=== PATIENT | male | born 1960 | race Caucasian/White ===

== ENCOUNTER 2024-03-22 09:53 | Outpatient (OUT) | payer MEDICARE, BC, SELFPAY ==
--- NOTE | 2024-03-21 13:55 | VEINCLINIC_ITS ---
Vital Signs 03/22/24 10:09 Height 5 ft 11 in Weight 83.915 kg BMI 25.8 BP 133/70 BP Location Left Brachial BP Position Sitting BP Cuff Size Adult BP Source Automatic Cuff Respiration 16 Pulse 58 L Pulse Source Monitor Comment The patient's blood pressure is elevated. Varicose Veins Patient is a 63 year old male in this day with c/o hemmorrhagic varicose veins to left leg. The first episode approximatley 3 weeks ago spontaneously hemmoraged and patient was able to get it to clot off. The second episode the patient had to go to ER to get it to stop which was about a week and a half ago. Patient c/o bilateral leg edema. Patient has worn bilateral leg knee high compression stockings for approximately 3 years with some improvement noted in edema. Patient has no history of varicose vein treatment, nor family history of varicose veins. Patient also has no history of blood clots. Jose Morton MD personally performed the services described in this documentation, as scribed by Errol Trujillo RN in my presence and it is both accurate and complete. IErrol RN, am scribing for, and in the presence of, Dr. Jose Tomas and in the presence of the patient. . thigh: bilateral (symptomsl left leg > right leg), knee: bilateral, calf: bilateral, ankle: bilateral and cordova: bilateral cramping 5 years Worsened in recent months: Yes standing elevating extremities, compression stockings and exercise Reports muscle spasms of leg, edema and leg edema History of lower extremity trauma: No Superficial thrombophlebitis: No Family history of varicose veins: no Has patient had previous lower extremity venous surgery: No Patient has previously received the following treatment(s) for lower extremity varicose veins: Reports none Does patient have a history of : not applicable Has patient had lower extremity venous scan with relux testing: No Support hose used: Yes Problems walking or doing physical activity: Yes How does it affect you: muscle spasms Do you walk much: Yes Do you stand much: Yes Review of Systems ROS Narrative Jose Morton MD personally performed the services described in this documentation, as scribed by Errol Trujillo RN in my presence and it is both accurate and complete. IErrol RN, am scribing for, and in the presence of, Dr. Jose Tomas and in the presence of the patient. Status of ROS 10 or more systems reviewed and unremark able except as noted in history and below Cardiovascular Reports: edema Integumentary/Breast Reports: changes in skin color Hematologic/Lymphatic Reports: easy bleeding PFSH [facility] Medical History (Updated 03/22/24 @ 10:23 by Errol Trujillo) Rotator cuff arthropathy ?M12.819 - Other specific arthropathies, not elsewhere classified, unspecified shoulder (ICD-10) Lung nodule ?R91.1 - Solitary pulmonary nodule (ICD-10) Hypertension ?I10 - Essential (primary) hypertension (ICD-10) Pain due to varicose veins of both lower extremities ?I83.813 - Varicose veins of bilateral lower extremities with pain (ICD-10) Surgical History (Updated 03/22/24 @ 10:23 by Errol Trujillo) H/O nasal septoplasty ?Z98.890 - Other specified postprocedural states (ICD-10) Family History (Updated 03/22/24 @ 10:24 by Errol Trujillo) Other Alzheimer dementia Family history of cancer Social History (Updated 03/22/24 @ 10:25 by Errol Trujillo) Within the past year, how often did you have a drink containing alcohol: 2-3 times a week Smoking status: Former smoker Non-prescribed substance use: denies use Meds Home Medications and Allergies Home Medications ?Medication ?Instructions ?Recorded ?Confirmed ?Type atorvastatin 20 mg tablet 20 mg PO DAILY 03/22/24 03/22/24 History levothyroxine 75 mcg tablet 75 mcg PO DAILY 03/22/24 03/22/24 History (Synthroid) losartan 25 mg tablet 25 mg PO DAILY 03/22/24 03/22/24 History Allergies Allergy/AdvReac Type Severity Reaction Status Date / Time No Known Drug Allergies Allergy Verified 03/22/24 10:27 Exam Narrative Exam Narrative: Jose Morton MD personally performed the services described in this documentation, as scribed by Errol Trujillo RN in my presence and it is both accurate and complete. Errol Morton RN, am scribing for, and in the presence of, Dr. Jose Tomas and in the presence of the patient. Results Additional Findings Additional findings: bilateral leg reflux u/s reveals moderate great saphenous and severe left small saphenous venous insufficiency with associated dilation along with partial chronic thrombus to left small saphenous vein. Additinally bilateral leg perforating perforating veins and lastly, bilareral leg branch saphenous truncal tributary varicosities. Jose Morton MD personally performed the services described in this documentation, as scribed by Errol Trujillo RN in my presence and it is both accurate and complete. Errol Motron RN, am scribing for, and in the presence of, Dr. Jose Tomas and in the presence of the patient. Assessment and Plan Assessment and Plan (1) Pain due to varicose veins of both lower extremities: Plan Patient to continue use of bilateral leg knee high compression stockings, exercise, rest and elevation of bilateral legs/feet. Patient to return for EVLT of left GSV followed by microfoam chemical ablation of branch saphenous varicosites leading to hemmoraging veins of left lower leg. Once these procedures are complete, EVLT of right GSV followed by EVLT of left SSV followed by EVLT of right SSV. Once these procedures complete, move forward with microfoam chemical ablation bilateral leg branch saphenous varicosities. Lastly, sclerotherapy bilateral leg hemorrhagic reticular spider veins. Jose Morton MD personally performed the services described in this documentation, as scribed by Errol Trujillo RN in my presence and it is both accurate and complete. IErrol RN, am scribing for, and in the presence of, Dr. Jose Tomas and in the presence of the patient.
--- NOTE | 2024-03-21 14:00 | W.VEIN ---
Discharge Plan Discharge Disposition: Home, Self-Care Outpatient Diagnostics: VC Endovenous Ablation 1VeinLT (Routine) Timeframe: 2 Weeks Facility: [facility] - Location: [facility] Center Ordered By: Jose Tomas Plan of Treatment: EVLT of left GSV, microfoam chemical ablation left leg, EVLT of left SSV, right GSV, right SSV, microfoam chemical ablation right leg, sclerotherapy bilateral legs Patient Instructions: Endovenous Ablation (GEN) Print Language: Venezuelan Discharge Date/Time: 03/22/24 09:54
--- NOTE | 2024-03-22 09:59 | VEIN_ITS ---
Patient Name: SHASHI SAAB MR#: [id number] : 1960 Exam Date: 03/22/2024 Ordering Doctor: DR JOSE TOMAS M.D. RADIOLOGY REPORT PROCEDURE: [facility] - OFFICE VISIT INITIAL COMPARISON: None. PROGRESS NOTES: 63-year-old male who presents with 2 episodes of nonpainful left leg hemorrhage 1 requiring the patient to present to the emergency room for resolution. The patient is concerned as he had no pain and woke up in a pool of blood and is concerned about recurrent hemorrhage. The patient has worn compression stockings for approximately 3 years. The patient has bilateral varicose veins with pain and swelling. The patient's symptoms are exacerbated by prolonged sitting and standing and partially relieved by rest, leg elevation and over the counter oral analgesics. The patient denies any signs and symptoms to suggest arterial ischemia. The patient describes a family history significant for Alzheimer's and cancer. Social history the patient drinks 2-3 times per week. The patient discontinued smoking years ago. No illicit drug use. Current medical history significant for rotator cuff arthropathy, solitary pulmonary nodule, hypertension and varicose veins. No history of deep venous thrombus or pulmonary embolus. See separate history and physical for medication list. No prior treatment for varicose or spider veins. Long-term use of compression stockings. After review of nurse notes, history and physical exam I discussed at length the pathophysiology of venous hypertension and possible treatments, therapies and strategies available. We discussed at length the importance of elevating the lower extremities above the level of the heart, increased physical activity and compression stocking use. We discussed alternatives including conservative therapy with compression stockings, ligation stripping and phlebectomy. We discussed intravenous laser ablation, micro foam chemical ablation and injection sclerotherapy at. Risks, benefits and alternatives were discussed and the patient's questions were answered Ultrasound venous reflux study performed same day was discussed at length with the patient. The report demonstrates severe right and moderate left deep vein reflux. Bilateral great saphenous and small saphenous vein venous insufficiency with saphenofemoral and saphenopopliteal reflux. Bilateral incompetent perforating veins. Bilateral incompetent varicose veins. PHYSICAL EXAM: The right leg demonstrates moderate scattered varicose reticular and spider veins. Mild hemosiderin staining. Mild subcutaneous edema of the ankle and foot The left leg demonstrates moderate scattered varicose reticular and spider veins. Mild hemosiderin staining. Small eschars in the region of the patient's hemorrhagic veins along the medial ankle. Both thighs, legs and feet were symmetrically warm to the touch. Good posterior tibial and dorsalis pedis pulses were present bilaterally. VEIN/VC Facility EST Comprehensive IMPRESSION: 1. Bilateral great saphenous and small saphenous vein venous insufficiency with saphenofemoral junction/saphenous popliteal junction reflux and dilatation 2. Moderate bilateral lower extremity varicose veins with left leg hemorrhagic vein bleeding 3. Mild bilateral lower extremity subcutaneous edema 4. No definite flow significant arterial disease 5. CEAP: C4a, Ep, Asp, Pr PLAN: 1. Endovenous laser ablation of the left great saphenous vein followed by micro foam chemical ablation of the left leg due to the patient's multiple episodes of non painful bleeding of hemorrhagic veins 2. Endovenous laser ablation of the right great saphenous vein, left small saphenous vein and possible right small saphenous vein 3. Micro foam chemical ablation of remaining incompetent varicose veins 4. Reticular and spider veins 5. Long-term use of bilateral thigh-high 20-30 mm compression stockings for control moderate to severe deep vein reflux 6. Continued leg elevation and physical activity for symptomatic relief Nurse notes, history and physical were reviewed and confirmed, see attached forms. The nurse was present throughout the physical exam and consultation Dictated by: Jose Tomas MD on 03/22/2024 at 11:54 Approved by: Jose Tomas MD on 03/22/2024 at 12:00
--- NOTE | 2024-03-22 09:59 | VEIN_ITS ---
Patient Name: SHASHI SAAB MR#: [id number] : 1960 Exam Date: 03/22/2024 Ordering Doctor: DR JOSE TOMAS M.D. RADIOLOGY REPORT PROCEDURE: VC EXT VENOUS REFLUX HERMAN LMTD COMPARISON: None. INDICATIONS: I83.813 Bilateral painful varicose veins TECHNIQUE: Duplex imaging of the lower extremity to assess the deep and superficial venous system for the presence of deep or superficial venous incompetence and to document the location and severity of disease. The study includes evaluation of the great saphenous vein (GSV), anterior accessory saphenous vein (AASV) and small saphenous vein (SSV). Patient scanned in reverse Trendelenburg and standing. FINDINGS: RIGHT LOWER EXTREMITY: Saphenofemoral Junction Reflux: Yes 8.3mm 3.0 sec GSV: Diam (mm) Reflux/ Time (sec) Proximal Thigh 6.1 Yes 1.5 Mid Thigh 3.9 Yes 0.6 Distal Thigh 3.5 Yes 0.5 Prox Calf 4.0 Yes 0.6 Mid Calf 3.0 Yes 1.5 Saphenopopliteal Junction Reflux: 5.5mm Yes 0.5 SSV: Proximal Calf 6.9 Yes 0.9 Mid Calf 3.8 Yes 0.6 AASV: Proximal Thigh 4.0 Yes 0.6 Mid Thigh 1.9 Yes 0.7 Distal Thigh Thrombi: No acute or chronic thrombus. Compressibility: Normal. Flow: Severe deep venous reflux. Preforator: Distal medial lower leg 4.0 mm with 1.3s reflux. Mid posterior lower leg 3.5 mm with 0.8s reflux. Mid medial thigh 3.5 mm with 3.0s reflux. Tech Note: Incompetent varicose vein off of GSV/executive producer promos distal medial thigh measures 4.0 mm with 0.6s reflux. Varicose vein mid medial calf measures 4.0 mm with 1.5s reflux. LEFT LOWER EXTREMITY: Saphenofemoral Junction Reflux: Yes 9.0 mm 4.5 sec GSV: Diam (mm) Reflux/Time (sec) Proximal Thigh 9.3 Yes 1.0 Mid Thigh 5.1 Yes 0.5 Distal Thigh 4.1 Yes 0.9 Prox Calf 4.3 Yes 1.8 Mid Calf 3.4 Yes 0.9 Saphenopopliteal Junction Relux: 5.5 mm Yes 0.5 SSV: Proximal Calf 5.9 Yes 0.7 Mid Calf 4.2 Yes 4.4 AASV: Proximal Thigh 4.1 No Mid Thigh 2.9 No Distal Thigh Thrombi: Chronic partial thrombus noted in SSV. Compressibility: Partial compression of segments in SSV. Flow: Moderate deep venous reflux. Golf Manager: Distal medial calf 2.6 mm, 2.6s reflux. Mid medial calf 4.8 mm with 4.4s reflux. Tech Note: Incompetent varicose vein proximal medial calf measures 4.3 mm with 1.3s reflux. Varicose vein distal anterior lower leg measures 4.1 mm with 0.5s reflux. CONCLUSION: 1. Severe right and moderate left deep vein reflux 2. 3. Moderate bilateral great saphenous vein venous insufficiency with dilatation and saphenofemoral junction reflux, left greater than right 4. Severe left small saphenous vein venous insufficiency with dilatation and saphenopopliteal junction reflux 5. Chronic partial thrombus left small saphenous vein 6. Bilateral incompetent perforating veins 7. Bilateral incompetent varicose veins Dictated by: Jose Tomas MD on 03/22/2024 at 11:07 Approved by: Jose Tomas MD on 03/22/2024 at 11:09
[2024-03-22 10:09] VITALS: BP 133/70; PULSE 58; BMI 25.8
== END 2024-03-22 09:54 | disposition home or self-care (01) ==
LOC: VC 09:54
PROVIDERS: PCP Radiology Diagnostic Radiology; Visit Provider Radiology Diagnostic Radiology
DX: I83.813 Varicose veins of bilateral lower extremities with pain (principal)
CPT/HCPCS: 93970; G0463

== ENCOUNTER 2024-03-31 09:45 | Outpatient (OUT) | payer MEDICARE, BC, SELFPAY ==
--- NOTE | 2024-03-30 15:38 | V.VEINS.HP ---
Vital Signs 03/31/24 09:59 BP 160/72 H BP Location Left Brachial BP Position Sitting BP Cuff Size Adult BP Source Manual Cuff Respiration 16 Pulse 68 Pulse Source Monitor Pulse Oximetry (%) 98 Oxygen Delivery Method Room Air Comment The patient's blood pressure is elevated. Varicose Veins Patient in this day for EVLT of Kevon Mortno MD personally performed the services described in this documentation, as scribed by Errol Trujillo RN in my presence and it is both accurate and complete. Errol Morton RN, am scribing for, and in the presence of, Dr. Kevon Simmons and in the presence of the patient. . thigh: bilateral (symptomsl left leg > right leg), knee: bilateral, calf: bilateral, ankle: bilateral and cordova: bilateral cramping 5 years Worsened in recent months: Yes standing elevating extremities, compression stockings and exercise Reports muscle spasms of leg, edema and leg edema History of lower extremity trauma: No Superficial thrombophlebitis: No Family history of varicose veins: no Has patient had previous lower extremity venous surgery: No Patient has previously received the following treatment(s) for lower extremity varicose veins: Reports none Does patient have a history of : not applicable Has patient had lower extremity venous scan with relux testing: No Support hose used: Yes Problems walking or doing physical activity: Yes How does it affect you: muscle spasms Do you walk much: Yes Do you stand much: Yes Review of Systems ROS Narrative Kevon Morton MD personally performed the services described in this documentation, as scribed by Errol Trujillo RN in my presence and it is both accurate and complete. Errol Morton RN, am scribing for, and in the presence of, Dr. Kevon Simmons and in the presence of the patient. Status of ROS 10 or more systems reviewed and unremarkable except as noted in history and below Cardiovascular Reports: edema Integumentary/Breast Reports: changes in skin color Hematologic/Lymphatic Reports: easy bleeding [facility] Medical History (Updated 03/31/24 @ 10:16 by Errol Trujillo) Superficial thrombophlebitis of left leg ?I80.02 - Phlebitis and thrombophlebitis of superficial vessels of left lower extremity (ICD-10) Rotator cuff arthropathy ?M12.819 - Other specific arthropathies, not elsewhere classified, unspecified shoulder (ICD-10) Lung nodule ?R91.1 - Solitary pulmonary nodule (ICD-10) Hypertension ?I10 - Essential (primary) hypertension (ICD-10) Pain due to varicose veins of both lower extremities ?I83.813 - Varicose veins of bilateral lower extremities with pain (ICD-10) Surgical History (Updated 03/31/24 @ 10:15 by Errol Trujillo) Status post laser ablation of incompetent vein ?Z98.890 - Other specified postprocedural states (ICD-10) H/O nasal septoplasty ?Z98.890 - Other specified postprocedural states (ICD-10) Family History (Updated 03/22/24 @ 10:24 by Errol Trujillo) Other Alzheimer dementia Family history of cancer Social History (Updated 03/22/24 @ 10:25 by Errol Trujillo) Within the past year, how often did you have a drink containing alcohol: 2-3 times a week Smoking status: Former smoker Non-prescribed substance use: denies use Meds Home Medications and Allergies Home Medications ?Medication ?Instructions ?Recorded ?Confirmed ?Type atorvastatin 20 mg tablet 20 mg PO DAILY 03/22/24 03/22/24 History levothyroxine 75 mcg tablet 75 mcg PO DAILY 03/22/24 03/22/24 History (Synthroid) losartan 25 mg tablet 25 mg PO DAILY 03/22/24 03/22/24 History Allergies Allergy/AdvReac Type Severity Reaction Status Date / Time No Known Drug Allergies Allergy Verified 03/22/24 10:27 Exam Narrative Exam Narrative: Kevon Morton MD personally performed the services described in this documentation, as scribed by Errol Trujillo RN in my presence and it is both accurate and complete. Errol Morton RN, am scribing for, and in the presence of, Dr. Kevon Simmons and in the presence of the patient. Assessment and Plan Assessment and Plan (1) Pain due to varicose veins of both lower extremities: Plan f/u examination with physician along with left leg limited u/s Kevon Morton MD personally performed the services described in this documentation, as scribed by Errol Trujillo RN in my presence and it is both accurate and complete. Errol Morton RN, am scribing for, and in the presence of, Dr. Kevon Simmons and in the presence of the patient. Procedures Procedure Instructions Procedures Plan of care: Risks and benefits of the procedure were discussed at length and informed written consent was obtained.? Time-out completed for verification of correct patient, procedure and site.? Staff present during time-out: Errol Trujillo RN,? Kevon Simmons MD, Mariaelena Vieira RDNY, Time Out Time__1035 Patient prepped and procedure performed in usual sterile fashion. Risk of injury related to use of Diode laser and/or laser devices__CR___ ? Serial number of laser used :? [id number] Control panel self test performed, electrical cords in good condition, floor is dry, basin of water available, fire extinguisher in close proximity_CR__ Polycarbonate goggles available and Laser warning signs outside of doors___CR__ Eye protection provided to patient and staff in room_CR___ Use of laser retardant drapes and dull blackened instruments as directed__CR___ Use of nonflammable prep solutions and use of saline soaked sponges to protect tissues as indicated _CR___ Length ___70 cm Laser operated by __Dr. Simmons Physician verbal confirmation laser locked in place__CR__ Laser start time (date and time) _03/31/2024@__1052 Laser stop time(date and time) __03/31/2024@__1102 [place] _8.0___ Average laser use __3499 Joules Average laser use__437 seconds Pulse continuous ___CR_? Pulse intermittent ___ Amount of Tumescent used _275cc Evaluated patient for signs and symptoms of electrical injury __CR___ ? Skin clear at insertion site __CR___ Patient tolerated procedure well.? Left leg Coban dressing applied to access site.? Applied Left thigh high leg compression stocking. Will return on 05/05/2024 for Left leg limited venous ultrasound and exam. IKevon MD personally performed the services described in this documentation, as scribed by Errol Trujillo RN in my presence and it is both accurate and complete. I, Errol Trujillo RN, am scribing for, and in the presence of, Dr. Kevon Simmons and in the presence of the patient.
--- NOTE | 2024-03-30 15:41 | P.DS_ITS ---
Discharge Plan Discharge Disposition: Home, Self-Care Outpatient Diagnostics: VC EXT Venous LT Limited (Routine) Timeframe: 2 Weeks Facility: [facility] - Location: Vein Center Ordered By: Jose Tomas VC EXT Venous Reflux LT LMTD (Routine) Timeframe: 2 Weeks Facility: [facility] - Location: Vein Center Ordered By: Jose Tomas Follow Up Appointments: 05/04/2024 Plan of Treatment: f/u examination with physician along with left leg limited u/s Patient Instructions: Endovenous Ablation (DC) Print Language: Nepalese Discharge Date/Time: 03/31/24 10:46
--- NOTE | 2024-03-31 09:53 | VEIN_ITS ---
[address] [address] Patient Name: SHASHI SAAB MRN: [id number] date: 1960 Sex: M Assigned Patient Location: Current Patient Location: Accession/Order Number: [id number] Exam Date: 03/31/2024 09:57 Report Date: 03/31/2024 11:21 At the request of: LYNNE CUETO Procedure: VC Endovenous Ablation 1VeinLT EXAMINATION: VC Endovenous Ablation 1VeinLT HISTORY: I83.813 - Varicose veins of bilateral lower extremities w... The risks and benefits of the procedure had been previously discussed, and were rediscussed at length. Informed written consent was obtained. Errol Trujillo RN and Mariaelena Berkowitz RDMS assisted. Time out procedure was performed. The left lower extremity was prepared and draped in the usual sterile fashion to allow knee flexion in the sterile field. Duplex ultrasound probe was draped in a sterile cover, sterile transmission gel was used. Venous mapping was performed with the areas of dilation and large tributaries marked. The total length was 70 cm from the entry 3 cm above the ankle to 3 cm below the Saphenofemoral junction. The diameter of the left great saphenous vein ranged from 9.3 mm. A 30 gauge needle and 1% buffered lidocaine was used to anesthetize the entry site. A 4 mm incision was made with a scalpel and the saphenous vein was entered percutaneously under direct ultrasound guidance with a micropuncture set, a single stick was successful in gaining access. A micro-guide wire was inserted and the needle removed. A micro-set including a dilator was inserted over the microwire and the needle and dilator were removed. A guide wire was inserted through the micro-set and guided through the saphenous vein to the saphenofemoral junction. The dilator was removed and an introducer sheath was inserted over the wire until the end of the sheath entered the saphenofemoral junction. The dilator and wire were removed and the 600 micron fiber was introduced and placed and positioned so that it extended beyond the sheath and was 3 cm distal to the saphenofemoral or saphenopopliteal junction. Final position of the fiber was determined by ultrasound guidance and duplex imaging. Tumescent anesthetic was delivered by ultrasound guidance. 275 cc of fluid was delivered along the entire course of the saphenous vein. The solution consisted of 1000 cc of normal saline with 40 mL of 1% lidocaine and 20 mL of sodium bicarbonate. A final positioning check was made. The energy source was turned on by means of the foot pedal and the fiber and sheath were withdrawn. The total number of Joules delivered was 3499. The laser was active for 437 seconds under continuous pulse, average laser use of 8 J. Laser start time: 10:52 AM Laser stop time: 11:02 AM Date: 03/31/2024. A duplex ultrasound revealed compressibility and flow at the saphenofemoral junction immediately after the procedure. Hemostasis at the access site was achieved. The skin incision of the saphenous vein was closed with a 4 x 4. A compression stocking was applied. Postop instructions were given. A follow up appointment was recommended and scheduled. The patient tolerated the procedure well. Electronically authenticated by: DIPIKA MEDINA Date: 03/31/2024 11:21
[2024-03-31] MEDS: LIDOCAINE HCL 1% 100 MG/10 ML MDV INJ (09:54)
[2024-03-31] MEDS: 0.9 % SODIUM CHLORIDE 500 ML, LIDOCAINE HCL 20 ML, SODIUM BICARBONATE 10 MEQ INJ (09:54)
[2024-03-31 09:59] VITALS: BP 160/72; PULSE 68; O2SAT 98
--- OUTSIDE RECORDS SUMMARY | 2024-03-31 10:09 | XMS_ITS | CCD ---
Author Organization [facility] Care Team Providers Care Director Imaging Name Role Phone THAIS WRIGHT Unavailable Unavailable MIGUEL DIALLO Unavailable Unavailable THAIS WRIGHT Unavailable Unavailable Beitler, Ciara Primary Care Provider Elder Goodman Primary Care Provider [phone] Beitler III, PA-C, Ciara Mich Primary Care Provider Beitler III, PA-C, Ciara Mich Primary Care Provider AIDA BENÍTEZ Attending Unavailable BEITLER III, CIARA T. Primary Care Unavailab JESU Barrera Attending Unavailable BEITLER III, CIARA T. Primary Care Unavailab DR LYNNE Salas V Consulting Unavailable ROM, DR LYNNE Becerra Attending Unavailable DR LYNNE CUETO V Admitting Unavailable Beitler III PA-C, Ciara Mich Primary Care Unavailable Gayhart PA-C, Carolyn Timmons Referring Unavai lable Mascaro PA-C, Spencer Salazar Attending Unavail able Mascaro PA-C, Spencer Salazar Attending Unavail able Beitler III PA-C, Ciara Mich Primary Care Unavailable Beitler III PA-C, Ciara Mich Primary Care Unavailable Gayhart PA-C, Carolyn Timmons Attending Unavai lable Beitler III PA-C, Ciara Mich Primary Care Unavailable Eduardo Bella MD Attending Unavaila ble Beitler III PA-C, Ciara Mich Primary Care Unavailable Gayhart PA-C, Carolyn Timmons Attending Unavai lable Beitler III PA-C, Ciara Mich Primary Care Unavailable Beitler III PA-C, Ciara Mich Referring Unavailable Heather Watkins Attending Unavailable Yuval BOWERS PA-C, Ciara Epps Primary Care Unavailable Eduardo Bella MD Attending Rafaela Walker III, PA-C, Ciarapallavi Epps Primary Care Unavailable Priscilla ALMEIDA, Carolyn Timmons Attending Harper Walker PA-C, Ciara Primary Care Provider CIARA WALKER Primary Care Unavailable CIARA WALKER Referring Unavailable CIARA WALKER Primary Care Unavailable CIARA WALKER Attending Unavailable CIARA WALKER Referring Unavailable Sarah Navarro Attending Unavailable CIARA WALKER Primary Care Unavailable Mino Pickens Primary Care Physician Unavailab Ilan Oconnor Unavailable Unavailab le Medications Current Medications Medication Drug Class(es) Dates Sig (Normalized) Sig (Original) [id number] 200 actuat albuterol 0.09 mg/actuat metered dose inhaler (8 sources) beta2-Adrenergic Agonist Start: 09-14-2023 take 2 puff(s) by inhalation every six hours as needed for wheezing albuterol sulfate HFA (PROVENTIL HFA) 108 (90 Base) MCG/ACT inhaler Inhale 2 puffs into the lungs every 6 hours as needed for Wheezing 18 g 3 09/14/2023 Active take 2 puff(s) by in halation every four to six hours as needed albuterol sulfate HFA 90 mcg/actuation aerosol inhaler inhale 2 puffs (180 mcg) by inhalation route every 4-6 hours as needed hydroCHLOROthiazide 25 mg / losartan potassium 100 mg oral tablet (20 sources) Thiazide Diuretic, Angiotensin 2 Receptor Khadra Start: 02-20-2020 take 1 tablet by mouth once daily losartan-hydroCHLOROthiazide (HYZAAR) 100-25 MG per tablet Indications: Secondary hypertension Take 1 tablet by mouth daily 90 tablet 3 03/06/2024 Active Start: 03-11-2018 losartan-hydro chlorothiazide (HYZAAR) 100-25 mg per tablet End: 03-27-2024 take 1 tablet by mouth once daily Hyzaar 50-12.5 mg oral tablet 03/27/2024 take 1 tablet by oral route once daily hydroxychloroquine sulfate 200 mg oral tablet (15 sources) Antimalarial, Antirheumatic Agent Start: 12-14-2017 hydroxychloroquine (PLAQUENIL) 200 mg tablet sildenafil 50 mg oral tablet (8 sources) Phosphodiesterase 5 Inhibitor Start: 02-11-2024 take 1 tablet by mouth once daily as needed sildenafil (VIAGRA) 50 MG tablet Indications: Erectile dysfunction, unspecified erectile dysfunction type Take 1 tablet by mouth daily as needed for Erectile Dysfunction 10 tablet 3 02/11/2024 Active simvastatin 20 mg oral tablet (20 sources) HMG-CoA Reductase Inhibitor Start: 02-25-2020 take 1 tablet by mouth once daily simvastatin (ZOCOR) 20 MG tablet Indications: Other hyperlipidemia Take 1 tablet by mouth nightly 90 tablet 3 03/06/2024 Active End: 03-27-2024 take 1 tablet by mouth once daily in the evening Zocor 40 mg oral tablet 03/27/2024 take 1 tablet (40 mg) by oral route once daily in the evening tadalafil 5 mg oral tablet (6 sources) Phosphodiesterase 5 Inhibitor Start: 12-11-2020 take 1 tablet by mouth once daily tadalafiL (CIALIS) 5 MG tablet Take 5 mg by mouth daily . 0 12/11/2020 Active Start: 02-20-2020 take 1 tablet by cara th once daily as needed tadalafil (CIALIS) 10 MG tablet Indications: Erectile dysfunction, unspecified erectile dysfunction type Take 1 tablet by mouth daily as needed for Erectile Dysfunction 30 tablet 1 02/20/2020 Active timolol 2.5 mg/ml ophthalmic solution (8 sources) beta-Adrenergic Khadra Start: 02-10-2022 take 1 drop(s) into the eye(s) once daily in the morning timolol (TIMOPTIC) 0.25 % ophthalmic solution Place 1 drop into the right eye every morning 02/10/2022 Active triamcinolone acetonide 1 mg/ml topical cream (8 sources) Corticosteroid Start: 02-24-2024 triamcinolone (KENALOG) 0.1 % cream Apply topically 02/24/2024 Active triamcinolone ac etonide 0.1 % topical cream apply a thin layer to the affected area(s) by topical route 2 times per day as needed Completed/Discontinued Medications Medication Drug Class(es) Dates Sig (Normalized) Sig (Original) Acetaminophen / HYDROcodone (6 sources) Opioid Agonist End: 03-27-2024 take 1 tablet by mouth every six hours as needed for pain hydrocodone-acet aminophen 5-500 mg oral tablet 03/27/2024 take 1 tablet by oral route every 6 hours as needed for pain aspirin 81 mg delayed release oral tablet (14 sources) Platelet Aggregation Inhibitor, Nonsteroidal Anti-inflammatory Drug take 1 tablet by mouth once daily aspirin 81 mg oral tablet,delayed release (DR/EC) take 1 tablet (81 mg) by oral route once daily Balance of Nature Fruits (6 sources) Balance of Nature Fruits take 3 caps daily Balance of Nature Veggies (6 sources) Balance of Nature Veggies take 3 caps daily 12 hr buPROPion hydrochloride 150 mg extended release oral tablet (6 sources) Aminoketone End: 03-27-2024 take 1 tablet by mouth twice daily Wellbutrin SR 150 mg oral tablet extended release 03/27/2024 take 1 tablet (150 mg) by oral route 2 times per day calcium carbonate 1250 mg / cholecalciferol 0.01 mg oral tablet (6 sources) Vitamin D End: 03-27-2024 take 1 tablet by mouth once daily Calcium 500 + D 500 mg(1,250mg) -400 unit oral tablet 03/27/2024 take 1 tablet by oral route daily celecoxib 200 mg oral capsule (6 sources) Nonsteroidal Anti-inflammatory Drug Start: 01-19-2013 End: 05-19-2013 take 1 capsule by mouth twice daily Celebrex 200 mg oral capsule 01/19/2013 05/19/2013 take 1 capsule twice daily ubidecarenone 30 mg oral capsule (14 sources) End: 03-28-2024 take 1 capsule by mouth once daily CoQ-10 30 mg oral capsule 03/28/2024 take 1 capsule by oral route daily Coenzyme Q10 (CO Q10) 200 MG CAPS Take by mouth Active CoQHeart with Q-Trol (6 sources) CoQHeart with Q-Trol take 1 cap daily docusate sodium 100 mg oral capsule (6 sources) take 1 capsule by mouth once daily as needed Stool Softener 100 mg oral capsule take 1 capsule (100 mg) by oral route once daily PRN doTERRA MetaPWR (6 sources) doTERRA MetaPWR take 1 cap daily levothyroxine sodium 0.175 mg oral tablet (18 sources) l-Thyroxine Start: 03-27-2024 take 1 tablet by mouth once daily 30 minutes before breakfast Synthroid 175 mcg tablet 03/27/2024 take 1 tablet (175 mcg) by oral route once daily on an empty stomach 30 minutes before breakfast Start: 03-06-2024 take 1 tablet by cara th once daily levothyroxine (SYNTHROID) 175 MCG tablet Take 1 tablet by mouth daily 90 tablet 3 03/06/2024 Active Start: 01-23-2021 take 1 tablet by cara th once daily levothyroxine (SYNTHROID, LEVOTHROID) 175 MCG tablet Take 175 mcg by mouth daily . 0 01/23/2021 Active Start: 02-09-2018 SYNTHROID 200 mcg tablet Medical Marijuana Tiniture (6 sources) Medical Marijuan a Tiniture take 1 dop of oil under tongue daily for glaucoma metoprolol tartrate 25 mg oral tablet (6 sources) beta-Adrenergic Khadra take 1 tablet by mouth once daily metoprolol tartrate 25 mg oral tablet take 1 tablet (25 mg) by oral route once daily omeprazole 20 mg delayed release oral capsule (6 sources) Proton Pump Inhibitor take 1 capsule by mouth once daily before mealtime Prilosec 20 mg oral capsule,delayed release(DR/EC) take 1 capsule (20 mg) by oral route once daily before a meal Stool Softener Oral (6 sources) End: 03-27-2024 Stool Softener Oral 03/27/2024 Turmeric boost (6 sources) Turmeric boost t lucas 2 caps daily Problems Active Problems Problem Classification Problem Date Documented Date Episodic/Chronic Disorders of lipid metabolism (17 sources) Hyperlipidemia; Translations: [Other hyperlipidemia] Onset: 02-07-2020 02-07-2020 Chronic Esophageal disorders (5 sources) Gastroesophageal reflux disease; Translations: [Gastro-esophageal reflux disease without esophagitis] Onset: 02-07-2020 02-07-2020 Chronic Essential hypertension (12 sources) Essential (primary) hypertension Chronic Osteoarthritis (6 sources) Osteoarthrosis, unspecified whether generalized or localized, lower leg Onset: 01-19-2013 Chronic Other connective tissue disease (1 source) Diastasis recti; Translations: [Separation of muscle (nontraumatic), other site] Episodic Other inflammatory condition of skin (5 sources) Discoid lupus erythematosus; Translations: [Discoid lupus erythematosus] Onset: 02-07-2020 02-07-2020 Chronic Other inflammatory condition of skin (1 source) Intertrigo; Translations: [Erythema intertrigo] Episodic Other lower respiratory disease (12 sources) Solitary pulmonary nodule Onset: 03-28-2024 Episodic Other lower respiratory disease (6 sources) Other nonspecific abnormal finding of lung field Onset: 03-28-2024 Episodic Other nutritional; endocrine; and metabolic disorders (2 sources) Recent weight loss; Translations: [Abnormal weight loss] Episodic Other screening for suspected conditions (not mental disorders or infectious disease) (2 sources) Encounter for screening for malignant neoplasm of respiratory organs; Translations: [Patient encounter status] Onset: 03-14-2024 03-14-2024 Episodic Other skin disorders (2 sources) Redundant skin; Translations: [Excessive and redundant skin and subcutaneous tissue] Episodic Residual codes; unclassified (1 source) Nicotine-filled electronic cigarette user; Translations: [Tobacco use] Episodic Screening and history of mental health and substance abuse codes (9 sources) Ex-smoker; Translations: [Personal history of nicotine dependence] Onset: 03-14-2024 03-14-2024 Episodic Thyroid disorders (17 sources) Hypothyroidism; Translations: [Hypothyroidism, unspecified] Onset: 02-07-2020 02-07-2020 Chronic Varicose veins of lower extremity (2 sources) Ruptured varicose veins; Translations: [Varicose veins of unspecified lower extremity with other complications] Onset: 03-13-2024 03-13-2024 Episodic Past or Other Problems Problem Classification Problem Date Documented Da te Episodic/Chronic Hypertension with complications and secondary hypertension (5 sources) Secondary hypertension; Translations: [Secondary hypertension, unspecified] Onset: 02-07-2020 Resolved: 02-25-2022 02-07-2020 Chronic Other and unspecified benign neoplasm (2 sources) Hyperplastic polyp of intestine; Translations: [Polyp of colon] Onset: 02-18-2021 02-18-2021 Episodic Spondylosis; intervertebral disc disorders; other back problems (6 sources) Backache, unspecified Onset: 01-19-2013 Episodic Unclassified (2 sources) Onset: 03-06-2024 03-06-2024 Results Test Name Value Interpretation Reference Range Facility No Panel Informationon 03-28 Tobacco smoking status Current Tobacco User Invalid Interpretation Code [place] Chest for screeningon Mild centrilobular emphysema and mild peribronchial thickening consistent with acute and/or chronic bronchitis. New 6.4 x 6.1 cm noncalcified left upper lobe nodule with indistinct margins (series 2 image 51 and coronal image 37). There are 3 additional noncalcified nodules ranging from 2 mm to 3.3 mm which are stable. There are no pathologically enlarged lymph nodes. A low-dose CT examination of the chest in 3 months is recommended. Additional findings as described in the body the report. Lung rads score 4 a. A low-dose CT examination the chest in 3 months is recommended. [facility] RIS CONSOLIDATED EXAMINATION: CT LUNG SCREENING (INITIAL/ANNUAL) HISTORY: TECH NOTES: Screening, former smoker Screening for lung cancer COMPARISON STUDIES: Low-dose CT lung screen dated 03/08/2023. TECHNIQUE: Routine low-dose CT lung screen without intravenous contrast. Dose reduction techniques were achieved by using automated exposure control and/or adjustment of mA and/or kV according to patient size and/or use of iterative reconstruction technique. FINDINGS: Cardiovascular: Moderately severe multivessel coronary calcifications. Moderate aortic valvular calcification. Severe atheromatous calcification thoracic aorta and mild atheromatous calcification origin of the right subclavian and right common carotid arteries. Moderate atheromatous calcification proximal abdominal aorta and mild atheromatous calcification celiac trunk and splenic artery. Lungs: Mild centrilobular emphysema. Mild right apical parenchymal scar. Mild peribronchial thickening consistent with acute and/or chronic bronchitis. Nodules: Stable 3.3 mm noncalcified right middle lobe nodule (series 2 image 96). Stable 2.2 mm noncalcified right lower lobe nodule (series 2 image 103). Stable 2 mm noncalcified juxtapleural right lower lobe nodule (series 2 image 49). New 6.4 x 6.1 mm noncalcified left upper lobe nodule with indistinct margins (series 2 image 51 and coronal image 37). There is a calcified granuloma within the left lower lobe. Lymphadenopathy: Numerous axillary and mediastinal lymph nodes which are not pathologically enlarged. There are no pathologically enlarged hilar lymph nodes. There are calcified mediastinal and left hilar lymph nodes secondary to old granulomatous disease. Other: The trachea, esophagus and thyroid gland are unremarkable. Upper Abdomen: Atherosclerotic disease as described. Musculoskeletal: There are severe discogenic degenerative changes at C7-T1. There are paravertebral ossifications at a few levels along the lower thoracic spine. Report electronically signed by: Dr. Miguel An [facility] Miguel An MD - 03/14/2024 EXAMINATION: CT LUNG SCREENING (INITIAL/ANNUAL) HISTORY: TECH NOTES: Screening, former smoker Screening for lung cancer COMPARISON STUDIES: Low-dose CT lung screen dated 03/08/2023. TECHNIQUE: Routine low-dose CT lung screen without intravenous contrast. Dose reduction techniques were achieved by using automated exposure control and/or adjustment of mA and/or kV according to patient size and/or use of iterative reconstruction technique. FINDINGS: Cardiovascular: Moderately severe multivessel coronary calcifications. Moderate aortic valvular calcification. Severe atheromatous calcification thoracic aorta and mild atheromatous calcification origin of the right subclavian and right common carotid arteries. Moderate atheromatous calcification proximal abdominal aorta and mild atheromatous calcification celiac trunk and splenic artery. Lungs: Mild centrilobular emphysema. Mild right apical parenchymal scar. Mild peribronchial thickening consistent with acute and/or chronic bronchitis. Nodules: Stable 3.3 mm noncalcified right middle lobe nodule (series 2 image 96). Stable 2.2 mm noncalcified right lower lobe nodule (series 2 image 103). Stable 2 mm noncalcified juxtapleural right lower lobe nodule (series 2 image 49). New 6.4 x 6.1 mm noncalcified left upper lobe nodule with indistinct margins (series 2 image 51 and coronal image 37). There is a calcified granuloma within the left lower lobe. Lymphadenopathy: Numerous axillary and mediastinal lymph nodes which are not pathologically enlarged. There are no pathologically enlarged hilar lymph nodes. There are calcified mediastinal and left hilar lymph nodes secondary to old granulomatous disease. Other: The trachea, esophagus and thyroid gland are unremarkable. Upper Abdomen: Atherosclerotic disease as described. Musculoskeletal: There are severe discogenic degenerative changes at C7-T1. There are paravertebral ossifications at a few levels along the lower thoracic spine. Report electronically signed by: Dr. Miguel An IMPRESSION: Mild centrilobular emphysema and mild peribronchial thickening consistent with acute and/or chronic bronchitis. New 6.4 x 6.1 cm noncalcified left upper lobe nodule with indistinct margins (series 2 image 51 and coronal image 37). There are 3 additional noncalcified nodules ranging from 2 mm to 3.3 mm which are stable. There are no pathologically enlarged lymph nodes. A low-dose CT examination of the chest in 3 months is recommended. Additional findings as described in the body the report. Lung rads score 4 a. A low-dose CT examination the chest in 3 months is recommended. [facility] Work Phone: Radiology Study observation (narrative) [facility] Work Phone: CT Chest for screeningOrdere d By: Miguel An on 03-14-[address] [facility] [address] LUNG SCREENING (INITIAL/A NNUAL)on 03-14-2024 CT LUNG SCREENING (INITIAL/ANNUAL) RADRPT EXAMINATION: CT LUNG SCREENING (INITIAL/ANNUAL) HISTORY: TECH NOTES: Screening, former smoker Screening for lung cancer COMPARISON STUDIES: Low-dose CT lung screen dated 03/08/2023. TECHNIQUE: Routine low-dose CT lung screen without intravenous contrast. Dose reduction techniques were achieved by using automated exposure control and/or adjustment of mA and/or kV according to patient size and/or use of iterative reconstruction technique. FINDINGS: Cardiovascular: Moderately severe multivessel coronary calcifications. Moderate aortic valvular calcification. Severe atheromatous calcification thoracic aorta and mild atheromatous calcification origin of the right subclavian and right common carotid arteries. Moderate atheromatous calcification proximal abdominal aorta and mild atheromatous calcification celiac trunk and splenic artery. Lungs: Mild centrilobular emphysema. Mild right apical parenchymal scar. Mild peribronchial thickening consistent with acute and/or chronic bronchitis. Nodules: Stable 3.3 mm noncalcified right middle lobe nodule (series 2 image 96). Stable 2.2 mm noncalcified right lower lobe nodule (series 2 image 103). Stable 2 mm noncalcified juxtapleural right lower lobe nodule (series 2 image 49). New 6.4 x 6.1 mm noncalcified left upper lobe nodule with indistinct margins (series 2 image 51 and coronal image 37). There is a calcified granuloma within the left lower lobe. Lymphadenopathy: Numerous axillary and mediastinal lymph nodes which are not pathologically enlarged. There are no pathologically enlarged hilar lymph nodes. There are calcified mediastinal and left hilar lymph nodes secondary to old granulomatous disease. Other: The trachea, esophagus and thyroid gland are unremarkable. Upper Abdomen: Atherosclerotic disease as described. Musculoskeletal: There are severe discogenic degenerative changes at C7-T1. There are paravertebral ossifications at a few levels along the lower thoracic spine. Report electronically signed by: Dr. Miguel An IMPRESSION: Mild centrilobular emphysema and mild peribronchial thickening consistent with acute and/or chronic bronchitis. New 6.4 x 6.1 cm noncalcified left upper lobe nodule with indistinct margins (series 2 image 51 and coronal image 37). There are 3 additional noncalcified nodules ranging from 2 mm to 3.3 mm which are stable. There are no pathologically enlarged lymph nodes. A low-dose CT examination of the chest in 3 months is recommended. Additional findings as described in the body the report. Lung rads score 4 a. A low-dose CT examination the chest in 3 months is recommended. Screening, former smoker Interpreted by: Miguel An MD Signed by: Miguel An MD 03/14/24 Final result Normal [facility] Complete Blood Count with Au to Diffon 03-06-2024 Basophils (Bld) [#/Vol] 0.1 10*3/uL Normal 0.0-0.1 [facility] Comment on above: Performed By: #### C BCAD #### [place] [address] Ph. [phone] Basophils/100 WBC (Bld) 1 % Normal 0-1 [facility] Comment on above: Performed By: #### C BCAD #### [place] [address] Ph. [phone] Eosinophils (Bld) [#/Vol] 0.3 10*3/uL Normal 0.0-0.5 [facility] Comment on above: Performed By: #### C BCAD #### [place] [address] Ph. [phone] Eosinophils/100 WBC (Bld) 4 % Normal 0-5 [facility] Comment on above: Performed By: #### C BCAD #### [place] [id number] Ph. [phone] Erythrocyte distribution width (RBC) [Ratio] 12 % Normal 11.5-14.5 [facility] Comment on above: Performed By: #### C BCAD #### [place] [id number] Ph. [phone] Hematocrit (Bld) [Volume fraction] 40.2 % Low 42.0-52.0 [facility] Comment on above: Performed By: #### C BCAD #### [place] [id number] Ph. [phone] Hemoglobin (Bld) [Mass/Vol] 13.8 g/dL Normal 13.5-17.5 [facility] Comment on above: Performed By: #### C BCAD #### [place] [address] Ph. [phone] Lymphocytes (Bld) [#/Vol] 2.5 10*3/uL Normal 1.0-4.0 [facility] Comment on above: Performed By: #### C BCAD #### [place] [address] Ph. [phone] Lymphocytes/100 WBC (Bld) 38 % Normal 20-40 [facility] Comment on above: Performed By: #### C BCAD #### [place] [address] Ph. [phone] MCH (RBC) [Entitic mass] 32.2 pg Normal 27.0-35.0 [facility] Comment on above: Performed By: #### C BCAD #### [place] [id number] Ph. [phone] MCHC (RBC) [Mass/Vol] 34.3 g/dL Normal 32.0-36.0 [facility] Comment on above: Performed By: #### C BCAD #### [address] [address] Ph. [phone] MCV (RBC) [Entitic vol] 93.7 fL Normal 80.0-100.0 [facility] Comment on above: Performed By: #### C BCAD #### [address] [address] Ph. [phone] Monocytes (Bld) [#/Vol] 0.5 10*3/uL Normal 0.3-1.0 [facility] Comment on above: Performed By: #### C BCAD #### [place] [id number] Ph. [phone] Monocytes/100 WBC (Bld) 8 % Normal 1-15 [facility] Comment on above: Performed By: #### C BCAD #### [address] [address] Ph. [phone] Neutrophils (Bld) [#/Vol] 3.1 10*3/uL Normal 1.8-7.7 [facility] Comment on above: Performed By: #### C BCAD #### [place] [id number] Ph. [phone] Neutrophils/100 WBC (Bld) 48 % Low 50-70 [facility] Comment on above: Performed By: #### C BCAD #### [address] [address] Ph. [phone] Platelet mean volume (Bld) [Entitic vol] 10.1 fL Normal 9.4-12.3 [facility] Comment on above: Performed By: #### C BCAD #### [address] [address] Ph. [phone] Platelets (Bld) [#/Vol] 249 10*3/uL Normal 150-450 [facility] Comment on above: Performed By: #### C BCAD #### [address] [address] Ph. [phone] RBC (Bld) [#/Vol] 4.29 10*6/uL Low 4.70-6.10 [facility] Comment on above: Performed By: #### C BCAD #### [place] [address] Ph. [phone] WBC (Bld) [#/Vol] 6.4 10*3/uL Normal 3.7-11.0 [facility] Comment on above: Performed By: #### C BCAD #### [place] [address] Ph. [phone] Comprehensive Metabolic Pane nain 03-06-2024 Albumin [Mass/Vol] 5.2 g/dL High 3.5-5.0 [facility] Comment on above: Performed By: #### F T4, CMP, [id number], LIPD, PSA #### [place] [address] Ph. [phone] ALP [Catalytic activity/Vol] 58 U/L Normal 38-126 [facility] Comment on above: Performed By: #### F T4, CMP, [id number], LIPD, PSA #### [place] [id number] Ph. [phone] ALT [Catalytic activity/Vol] 35 U/L Normal 0-50 [facility] Comment on above: Performed By: #### F T4, CMP, [id number], LIPD, PSA #### [place] [id number] Ph. [phone] AST [Catalytic activity/Vol] 46 U/L Normal 17-59 [facility] Comment on above: Performed By: #### F T4, CMP, [id number], LIPD, PSA #### [place] [id number] Ph. [phone] Bilirubin [Mass/Vol] 0.5 mg/dL Normal 0.2-1.3 [facility] [facility] Comment on above: Performed By: #### F T4, CMP, [id number], LIPD, PSA #### [place] [address] Ph. [phone] Calcium [Mass/Vol] 9.9 mg/dL Normal 8.4-10.2 [facility] Comment on above: Performed By: #### F T4, CMP, [id number], LIPD, PSA #### [place] [address] Ph. [phone] Chloride [Moles/Vol] 89 mmol/L Low 98-107 [facility] Comment on above: Performed By: #### F T4, CMP, [id number], LIPD, PSA #### [place] [address] Ph. [phone] CO2 [Moles/Vol] 34 mmol/L High 22-32 [facility] Comment on above: Performed By: #### F T4, CMP, [id number], LIPD, PSA #### [place] [address] Ph. [phone] Creatinine [Mass/Vol] 0.62 mg/dL Low 0.66-1.25 [facility] Comment on above: Performed By: #### F T4, CMP, [id number], LIPD, PSA #### [place] [address] Ph. [phone] GFR/1.73 sq M.predicted among non-blacks MDRD (S/P/Bld) [Vol rate/Area] 106 mL/min/{1.73_m2} Normal >60 [facility] Comment on above: Result Comment: GFR calculated using CKD-EPI (2020) formula.\X0D0A\Stage 1 Kidney damage (e.g., protein in the urine) with normal GFR >=90\X0D0A\Stage 2 Kidney damage with mild decrease in GFR 60-89\X0D0A\Stage 3a Moderate decrease in GFR 45-59\X0D0A\Stage 3b Moderate decrease in GFR 30-44\X0D0A\Stage 4 Severe reduction in GFR 15-29\X0D0A\Stage 5 Kidney failure <15 Performed By: #### F T4, CMP, [id number], LIPD, PSA #### [place] [address] Ph. [phone] Glucose [Mass/Vol] 81 mg/dL Normal 65-100 [facility] Comment on above: Performed By: #### F T4, CMP, [id number], LIPD, PSA #### [place] [address] Ph. [phone] Potassium [Moles/Vol] 4.4 mmol/L Normal 3.6-5.0 [facility] Comment on above: Performed By: #### F T4, CMP, [id number], LIPD, PSA #### [place] [address] Ph. [phone] Protein [Mass/Vol] 7.9 g/dL Normal 6.3-8.2 [facility] Comment on above: Performed By: #### F T4, CMP, [id number], LIPD, PSA #### [place] [id number] Ph. [phone] Sodium [Moles/Vol] 132 mmol/L Low 135-145 [facility] Comment on above: Performed By: #### F T4, CMP, [id number], LIPD, PSA #### [place] [id number] Ph. [phone] Urea nitrogen [Mass/Vol] 9 mg/dL Normal 9-20 [facility] Comment on above: Performed By: #### F T4, CMP, [id number], LIPD, PSA #### [place] [address] Ph. [phone] Free T4on 03-06-2024 Free T4 [Mass/Vol] 1.33 ng/dL Normal 0.78-2.19 [facility] Comment on above: Performed By: #### F T4, CMP, [id number], LIPD, PSA #### [place] [id number] Ph. [phone] Lipid Panelon 03-06-2024 Cholesterol [Mass/Vol] 180 mg/dL Normal 100-200 [facility] Comment on above: Result Comment: <200 mg/dL is recommended cholesterol level. Performed By: #### F T4, CMP, [id number], LIPD, PSA #### [place] [id number] Ph. [phone] Cholesterol in HDL [Mass/Vol] mg/dL Normal >40 [facility] Comment on above: Performed By: #### F T4, CMP, [id number], LIPD, PSA #### [place] [address] Ph. [phone] Cholesterol in LDL [Mass/Vol] 51 mg/dL Normal 20-100 [facility] Comment on above: Performed By: #### F T4, CMP, [id number], LIPD, PSA #### [address] [address] Ph. [phone] Cholesterol.total/Ch olesterol in HDL [Mass ratio] 2 {ratio} Normal 1-5 [facility] Comment on above: Performed By: #### F T4, CMP, [id number], LIPD, PSA #### [place] [id number] Ph. [phone] Triglyceride [Mass/Vol] 97 mg/dL Normal 10-150 [facility] Comment on above: Performed By: #### F T4, CMP, [id number], LIPD, PSA #### [address] [address] Ph. [phone] TSH Reflex FT4on 03-06-2024 TSH 5.090 mIU/mL High 0.470-4.680 [facility] Comment on above: Performed By: #### F T4, CMP, [id number], LIPD, PSA #### [place] [id number] [address] [phone] Otolaryngology Office/Clinic Noteon 03-08-2023 Otolaryngology Office/Clinic Note Chief Complaint 10 day f/u for L ear fullness History of Present Illness Patient returns today after the use of ofloxacin drops 5 drops twice daily for the past 10 days to the left ear to try to help soften debris within the ear canal that could be consistent with ear canal cholesteatoma. This was unable to be removed at his last visit due to pain. He states he has not had any ear pain, otorrhea and has not run a fever or had any concerns for infection. He has stable symptoms of chronic eustachian tube dysfunction bilaterally as well as chronic nasal congestion. The option of proceeding with bilateral eustachian tube balloon dilation, bilateral T-tube placement, and bilateral inferior turbinate therapy could outfracture for access of the nasopharynx with discussed. He denies any vestibular symptoms. He has not had any changes in his hearing since he was seen last. No other concerns today. Physical Exam Vitals & Measurements T: 36.4 ?C (Temporal Artery) HT: 177 cm WT: 87.6 kg (Estimated) WT: 87.6 kg (Dosing) BMI: 27.96 General: No acute distress, alert and oriented x3 Voice: Appropriate for age. Normal tone, volume, and projection noted. Head: Normocephalic atraumatic, no abnormal masses or lesions noted Face: Facial function symmetric and equal bilaterally. Ears: External ears and mastoids appear normal bilaterally. Nose: External nasal dorsum is straight. Mouth: Dentition is good. Oral tongue has normal mobility Oropharynx: Posterior oropharynx shows no abnormal masses or lesions. Neck: Neck is supple. Laryngeal crepitus is normal. The following additional exam findings were noted today: Given the patient's presenting history, the otic microscope was used to examine both ears. Stable retraction of the right tympanic membrane. On the left, there once again is noted debris consistent with epithelial remnants adjacent to the tympanic membrane in the posterior inferior quadrant. No obvious tympanic membrane perforation on the left. Retraction of the tympanic membrane noted. Additional Vitals No qualifying data available. Assessment/Plan Chronic dysfunction of both eustachian tubes Patient with a history of chronic otitis media and chronic eustachian tube dysfunction bilaterally who is on the operative schedule for bilateral eustachian tube balloon dilation, bilateral T-tube placement, and bilateral inferior turbinate therapeutic outfracture for access of the nasopharynx with eustachian tube balloon dilation. Unfortunately, he continues to have debris adjacent to the left tympanic annulus in the posterior quadrant concerning for possible canal cholesteatoma. Recommended proceeding with CT IAC for further evaluation. The patient was also questioning the cost of the surgery as he has a high deductible[place] [address]-16, 580[address], and [address] to discuss with his insurance company to see what his [id number] expense would be. We did discuss the possibility of just performing bilateral T-tube placement if the expense will be too high for him this year. However, I would like to take a look at the left ear especially under anesthesia to be able to clean out the debris concerning for ear canal cholesteatoma once I have had a chance to review his CT IAC. We will call the patient with the results of the CT IAC when available. Risk, benefits, alternatives, and expected recovery course following the proposed major surgery were once again reviewed today. Chronic nasal congestion Chronic otitis media of both ears Time Spent with the Patient 2 or more stable chronic illnesses Decision regarding elective major surgery without patient-specific risk Follow-up level 4 25713 added for otic microscopy use Physician Comments This note was generated using voice recognition software. Though proofreading has been done, there is still a chance of some unintentional typos and/or errors. Problem List/Past Medical History Ongoing Discoid lupus Hyperlipidemia Historical No qualifying data Procedure/Surgical History sinus tonsillectomy Medications azelastine 137 mcg/inh (0.1%) nasal spray, 1 sprays, Nasal, BID, 6 refills Flonase 50 mcg/inh nasal spray, 1 sprays, Nasal, BID, 6 refills losartan-hydrochlor othiazide 100mg-12.5mg oral tablet, 1 tabs, Oral, Daily ofloxacin 0.3% ophthalmic solution, 5 drops, Ear-Left, BID, 11 refills Plaquenil Sulfate 200 mg oral tablet, 200 mg= 1 tabs, Oral, Daily sildenafil 50 mg oral tablet Synthroid 200 mcg (0.2 mg) oral tablet, 200 mcg= 1 tabs, Oral, Daily Zocor 40 mg oral tablet, 40 mg= 1 tabs, Oral, HS (at bedtime) Allergies No Known Allergies Social History Tobacco Former smoker, quit more than 30 days ago Use:. Cigarettes, 30 year(s). Family History Alzheimer disease: Mother. Cancer: Mother and Father. Diabetes mellitus: Father. Electronically signed by Eduardo Bella MD 03/08/23 15:23 EDT Electronically s (more content not included)... Normal [facility] Otolaryngology Office/Clinic Noteon 02-25-2023 Otolaryngology Office/Clinic Note Chief Complaint surgical consult History of Present Illness Patient presents to me today upon referral from Carolyn for evaluation of bilateral chronic otitis media with effusion as a product of bilateral chronic eustachian tube dysfunction. The patient has a longstanding, essentially lifelong, history of chronic eustachian tube dysfunction and has had multiple previous sets of PE and T tubes placed in the past. Most recent set of tubes was about 10 years ago. He does wear hearing aid on the right that he has had for several years. He does not have any ear pain. He did have some ear bleeding from the left side a few weeks ago which was managed with eardrops. He has had no continued drainage or bleeding from the left ear. He also had a CT IAC performed at an outside institution that was personally reviewed today showing middle ear and mastoid fluid on the right but no evidence of bony erosion concerning for cholesteatoma. On the left side, there is fluid or soft tissue surrounding the ossicles but the scutum is sharp with no evidence of erosion. There is dependent fluid in the mastoid as well. No obvious signs of cholesteatoma on the left either on CT. His does note that he has chronic nasal congestion and will snore at night unless he uses a nasal saline rinse. He has not been on any antihistamine or intranasal steroid sprays to help with congestion and underlying eustachian tube dysfunction. Comprehensive audiogram was performed today and personally reviewed with the patient showing bilateral symmetric mixed hearing loss mild to moderate in the low frequencies downsloping to severe in the higher frequencies. Flat tympanograms with normal canal volumes bilaterally consistent with middle ear effusions. Word recognition score on the right is 100% at 85 dB and 88% at 75 dB. Physical Exam Vitals & Measurements T: 36.7 ?C (Temporal Artery) HT: 177 cm WT: 87.6 kg WT: 87.6 kg (Dosing) BMI: 27.96 General: No acute distress, alert and oriented x3 Voice: Appropriate for age. Normal tone, volume, and projection noted. Head: Normocephalic atraumatic, no abnormal masses or lesions noted Face: Facial function symmetric and equal bilaterally. Ears: External ears and mastoids appear normal bilaterally. Nose: External nasal dorsum is straight. Mouth: Dentition is good. Oral tongue has normal mobility Oropharynx: Posterior oropharynx shows no abnormal masses or lesions. Neck: Neck is supple. Laryngeal crepitus is normal. The following additional exam findings were noted today: Given the patient's presenting history, the otic microscope was used to examine both ears. On the right, the tympanic membrane is retracted with a middle ear effusion present. There is a superior retraction pocket in the pars flaccida but no evidence of cholesteatoma. There is also a anterior inferior retraction pocket with atelectasis but no cholesteatoma present. On the left, the tympanic membrane is once again diffusely retracted. There is some ceruminous debris along the posterior canal near the tympanic annulus. Attempts to remove this with suction were very painful for the patient. Difficult to ascertain whether there is any ear canal cholesteatoma in this region. He once again has a attic retraction pocket but no evidence of cholesteatoma on the left. Intranasal exam reveals significant enlargement and congestion of the bilateral inferior turbinates Additional Vitals No qualifying data available. Assessment/Plan Chronic eustachian tube dysfunction Patient with a lifelong history of chronic eustachian tube dysfunction as well as chronic otitis media with effusion. He also has chronic nasal congestion likely as a product of chronic underlying allergic rhinitis. Recommended a trial of Dymista nasal sprays, 1 spray to both nostrils in the morning and evening after using the Navage nasal saline rinse to help keep the nose moisturized. This should help underlying eustachian tube dysfunction as well. From an ear perspective, at a minimum he has bilateral middle ear effusions leading to bilateral mixed hearing loss and I think he would be an excellent candidate for T tubes bilaterally as well as eustachian tube balloon dilation bilaterally given his chronic history of eustachian tube dysfunction. He will likely also require bilateral inferior turbinate outfracture to access the nasopharynx for eustachian tube balloon dilation. He does have an area of cerumen in the left posterior canal that could be consistent with ear canal cholesteatoma, but this was difficult to appreciate today and attempts to remove debris were met with significant pain. Recommended use of provided ofloxacin otic drops, 5 drops to the left ear 2 times a day for 10 days to help moisturize the cerumen to allow for removal at his next appointment in 10 days. The decision to proceed with this elective major surgery was discussed. The risks, benefits, alternatives, and expectations following this elective surgery were reviewed today, i (more content not included)... Normal [facility] Otolaryngology Office/Clinic Noteon 01-05-2023 Otolaryngology Office/Clinic Note Chief Complaint Pt states here for f/u ear drainage History of Present Illness History of Present Illness HPI: pt here for f/u of L ear drainage. Pt states he has no more drainage and no ear pain. Pt did say that when he put his hearing aid back in, it sounded like a bad speaker. Review of Systems General Adult ROS Fatigue: No Appetite change: No Other General: No Weakness: No Weight gain: No Weight Loss: No Cardiovascular Chest pain/pressure: No Claudication: No Edema: No Orthopnea: No Other Cardiovascular: No Palpitations: No Syncope: No EENMT Bleeding gums: No Dental pain: No Ear drainage: No Ear pain: No Facial pain: No Hearing loss: No Hoarseness: No Mouth lesions: No Nasal congestion: No Nasal discharge: No Nosebleeds: No Other EENMT: No Postnasal drainage: No Sore_throat: No Tinnitus: No Vision Changes: No Gastrointestinal Abdominal pain: No Constipation: No Diarrhea: No Dysphagia: No Fecal incontinence: No Heartburn: No Nausea: No Other GI: No Stools, black/bloody: No Vomiting: No Vomiting blood: No Genitourinary Decreased urine output: No Dysuria: No Frequency: No Genital irritation: No Hematuria: No Hesitancy: No Impaired urge sensation: No Other Genitourinary: No Polyuria: No Sexual dysfunction: No Urgency: No Urinary Incontinence: No Vaginal discharge: No Hematologic/Lymphat ic Musculoskeletal Neurological Psychiatric Respiratory Apnea: No Cough: No Hemoptysis: No Other Respiratory: No Shortness_of_breath : No Snoring: No Sputum production: No Wheezing: No Skin Physical Exam Vitals & Measurements T: 36.8 ?C (Temporal Artery) Additional Vitals No qualifying data available. Overall:[Communicat ion mode is clear, normal] [Appearance- no acute distress, appears stated age and is well nourished] Assistive device:[ none] Head:[normocephalic , no trauma, lesions or asymmetry] Ocular appearance:[ Conjuctiva- clear and bright, no drainage or infection. EOM intact] Ears:[ external ear- normal shape, no signs of infection, mass, lesion or asymmetry bilaterally. Ear canal is healthy, free from wax and infection, bilaterally] [Eardrum-healthy, no sign of infection, trauma, perforation or infection, right. Left has no drainage but sig attic retraction pocket with debris present, this was suctioned free today leaving perf noted. Hearing improved with better quality of sound] Mental Status:[Alert and oriented x3][Mood and affect normal][Gait is normal]. Assessment/Plan 1. Otorrhea of left ear Pt has resolved left ear drainage, however attic retraction pocket noted with debris. this was suctioned free and static sound resolved but hearing still decreased. Pt needs imaging to evaluate cholesteatoma and determine next steps F/U with results and audio. Pt to notify office if drainage recurs Orders: CT IAC w/o Contrast 2. Cholesteatoma, attic Medical Decision Making Chronic conditions NOT treated during this visit that affected my overall medical decision making: [] Treatment plans discussed but not opted for at this time: [] Prescribed medication that requires intensive monitoring for toxicity: [] I have reviewed the patient?s medication list for medication interactions/contra indications and/or for upcoming procedures: [yes or no] Time Spent with the Patient I have personally spent [30] minutes on this date, directly related to today's patient visit, including pre and post visit work, for this date of service. Time listed does not include time spent on separately billable services. Problem List/Past Medical History Ongoing Discoid lupus Hyperlipidemia Historical No qualifying data Procedure/Surgical History sinus tonsillectomy Medications losartan-hydrochlor othiazide 100mg-12.5mg oral tablet, 1 tabs, Oral, Daily Plaquenil Sulfate 200 mg oral tablet, 200 mg= 1 tabs, Oral, Daily sildenafil 50 mg oral tablet Synthroid 200 mcg (0.2 mg) oral tablet, 200 mcg= 1 tabs, Oral, Daily Zocor 40 mg oral tablet, 40 mg= 1 tabs, Oral, HS (at bedtime) Allergies No Known Allergies Social History Tobacco Former smoker, quit more than 30 days ago Use:. Cigarettes, 30 year(s). Family History Alzheimer disease: Mother. Cancer: Mother and Father. Diabetes mellitus: Father. Electronically signed by Carolyn Wells PA-C 01/10/23 23:30 EDT Normal [facility] Otolaryngology Office/Clinic Noteon 12-15-2022 Otolaryngology Office/Clinic Note Chief Complaint Pt states here for ear drainage History of Present Illness History of Present Illness HPI: pt is here for ear drainage. States it has been ongoing for 2 weeks. Yesterday he had blood discharge coming from L ear. Tinnitus as well as some itching.Pt has hx of sinus issues with congestion and infection and reports some issues with hearing as well. No sig treatment recently for this issue. Review of Systems General Adult ROS Fatigue: No Appetite change: No Other General: No Weakness: No Weight gain: No Weight Loss: No Cardiovascular Chest pain/pressure: No Claudication: No Edema: No Orthopnea: No Other Cardiovascular: No Palpitations: No Syncope: No EENMT Bleeding gums: No Dental pain: No Ear drainage: Yes Ear pain: No Facial pain: No Hearing loss: No Hoarseness: No Mouth lesions: No Nasal congestion: No Nasal discharge: No Nosebleeds: No Other EENMT: No Postnasal drainage: No Sore_throat: No Tinnitus: No Vision Changes: No Gastrointestinal Abdominal pain: No Constipation: No Diarrhea: No Dysphagia: No Fecal incontinence: No Heartburn: No Nausea: No Other GI: No Stools, black/bloody: No Vomiting: No Vomiting blood: No Genitourinary Decreased urine output: No Dysuria: No Frequency: No Genital irritation: No Hematuria: No Hesitancy: No Impaired urge sensation: No Other Genitourinary: No Polyuria: No Sexual dysfunction: No Urgency: No Urinary Incontinence: No Vaginal discharge: No Hematologic/Lymphat ic Musculoskeletal Neurological Psychiatric Respiratory Apnea: No Cough: No Hemoptysis: No Other Respiratory: No Shortness_of_breath : No Snoring: No Sputum production: No Wheezing: No Skin Physical Exam Additional Vitals No qualifying data available. Overall:[Communicat ion mode is clear, normal] [Appearance- no acute distress, appears stated age and is well nourished] Assistive device:[ none] Head:[normocephalic , no trauma, lesions or asymmetry] Ocular appearance:[ Conjuctiva- clear and bright, no drainage or infection. EOM intact] Ears:[ external ear- normal shape, no signs of infection, mass, lesion or asymmetry bilaterally. Ear canal is healthy, free from wax and infection, right. Left ear has bloody discharge] [Eardrum-eardrums retraacted bilat] [Middle ear- healthy, no obvious fluid present or infection] Nose:[ External- healthy, no sign of asymmetry, lesion or infection] Septum:[ Midline, no sign of perforation, infection or deviation] Turbinates:[ normal, no hypertrophy, mass or polyp] Nasal passages:[ congestion] Oral cavity:[ Normal, tongue healthy no mass, lesion or infection. Soft and hard palate normal. Bimanual palpation is normal. Mucosa moist, free from infection][ Benign gingiva, good dental hygiene][Tonsil size is normal, no asymmetry, mass or lesionn][oropharynx - clear, no evidence of post nasal drip, cobblestoning or other abnormalities] Mental Status:[Alert and oriented x3][Mood and affect normal][Gait is normal]. Assessment/Plan 1. Otorrhea of left ear Pt has left ear infection for 2 weeks with bloody ear discharge and sig abnormality to ear bilat with neg pressure. THis is likely from underlying sinus issues. Drops given to treat the ear and suggest flonase for sinus pressure. Recheck in 2 weeks to ensure improvement but may need to consider imaging should symptoms persist. Keep ears dry and avoid qtips Orders: ciprofloxacin-dexam ethasone otic, 4 drops, Ear-Left, BID, X 10 days, # 7.5 mL, 0 Refill(s), 12/25/22 8:54:00 EDT, Pharmacy: [id number] 2. Dysfunction of both eustachian tubes 3. Chronic sinusitis Medical Decision Making Chronic conditions NOT treated during this visit that affected my overall medical decision making: [] Treatment plans discussed but not opted for at this time: [] Prescribed medication that requires intensive monitoring for toxicity: [] I have reviewed the patient?s medication list for medication interactions/contra indications and/or for upcoming procedures: [yes or no] Time Spent with the Patient I have personally spent [36] minutes on this date, directly related to today's patient visit, including pre and post visit work, for this date of service. Time listed does not include time spent on separately billable services. Problem List/Past Medical History Ongoing Discoid lupus Hyperlipidemia Historical No qualifying data Procedure/Surgical History sinus tonsillectomy Medications Ciprodex 0.3%-0.1% otic suspension, 4 drops, Ear-Left, BID losartan-hydrochlor othiazide 100mg-12.5mg oral tablet, 1 tabs, Oral, Daily Plaquenil Sulfate 200 mg oral tablet, 200 mg= 1 tabs, Oral, Daily sildenafil 50 mg oral tablet Synthroid 200 mcg (0.2 mg) oral tablet, 200 mcg= 1 tabs, Oral, Daily Zocor 40 mg oral tablet, 40 mg= 1 tabs, Oral, HS (at bedtime) Allergies No active allergies Social History Tobacco Former (more content not included)... Normal [facility] Audiology Office/Clinic Note on 03-31-2022 Audiology Office/Clinic Note History Patient was seen today for a hearing test and aided testing. He was referred by his PCP - ELLE Walker for testing required for [facility]. Patient is a hearing aid user. Otoscopy was unremarkable, bilaterally. Pure tone testing R - mild loss 500-1000Hz rising to WNL 2-4kHz. L - mild loss 50--1000Hz rising to WNL at 2kHz sloping to a severe loss at 4kHz. Word recognition ability RIGHT: 88% @ 65dBHL (45dB masking) LEFT: 96% @ 65dBHL (45dB masking) Using recorded NU-6 List 2 & 3 word lists. Aided Testing Pure tone testing R - responses WNL 500-3000Hz. L - mild response at 500Hz with responses WNL 1-3kHz. Word recognition ability RIGHT: 96% @ 45dBHL LEFT: 96% @ 45dBHL Using recorded MARILU W-22 List 1 & 2 word lists. Summary Results were given to patient to return to his PCP for final approval. Recommendations 1. Call if further testing or documentation is necessary. Electronically signed by Heather Tariq 03/31/22 16:59 EST Normal [facility] SURGICALon 02-04-2021 SURGICAL [place] [facility] SHASHI PEREZ [id number] Assoc. Page 1 of 1 [address] [place] [address] PROC: 02/04/2021 [facility] RECV: 02/06/2021 [address] [facility] RPTD: 02/07/2021 [place] [address] LOC: [facility] ACCT: [id number] SEX: M : 1960 AGE: 60 Y PATHOLOGY REPORT ATTN: MIGUEL DIALLO REQ: MIGUEL DIALLO Copies To: CIARA WALKER Clinical Information: SCREENING COLONOSCOPY FINAL DIAGNOSIS: Sigmoid colon polyp, biopsy: Hyperplastic polyp. Specimen: BIOPSY OF SIGMOID COLON, POLYP Gross Examination: The container is labeled Shashi Perez, sigmoid polyp. Received in formalin are three bits of mendoza soft tissue varying in size from 3 mm up to 4 mm. 1 ns. MTK/DKR:[id number] Microscopic Examination: Microscopic examination performed. [id number] LATANYA STEPHENSON M.D., F.C.A.P NVML/ [facility] Printed on: 02/07/[address] [place] [id number] Original print date: 02/07/2021 Normal [facility] CT LUNG SCREENINGon 06-11-19 1. No acute cardiopulmonary process or convincing evidence of new pulmonary malignancy. 2. Sequela of old healed granulomatous disease again identified. L-RAD 1 No findings or minor findings; benign nodules. RECOMMENDATIONS: Annual LDCT screening for 2 years and suggest annual LDCT until patient no longer eligible for definitive treatment. [place], [place] EXAMINATION: CT LUNG SCREENING (INITIAL/ANNUAL) 06/11/2020 COMPARISON STUDY: CT lung cancer screening study 04/27/2019. CT of the chest, abdomen and pelvis 12/31/2008. HISTORY: Ex-smoker. TECHNIQUE: 2.5 mm sections were obtained from the thoracic inlet through the diaphragm without use of contrast. Coronal and sagittal reconstructed images were obtained. Low dose protocol was utilized. Dose reduction techniques were achieved by using automated exposure control and/or adjustment of mA and/or kV according to patient size and/or use of iterative reconstruction technique. FINDINGS: Visualized portions of the upper abdominal contents appear unremarkable. Similar atherosclerotic change of aorta and its branches as well as coronary arteries noted. Negative for thoracic aortic aneurysm. Heart size is normal. Small calcified subcarinal and left hilar nodes are again noted. A subpleural laterally located left lower lobe calcified granuloma measures 9 mm. No edema, failure or pneumonia has developed in the interval. Mild diffuse background bronchial wall cuffing from mild reactive airways disease without bronchiectasis suspected. No new pulmonary mass or nodule has developed. No acute osseous abnormality noted. Report electronically signed by: Dr. Zana Galarza [place], [place] Karen Goncalves Radiant Results From [facility] - 06/11/2020 10:24 AM EST EXAMINATION: CT LUNG SCREENING (INITIAL/ANNUAL) 06/11/2020 COMPARISON STUDY: CT lung cancer screening study 04/27/2019. CT of the chest, abdomen and pelvis 12/31/2008. HISTORY: Ex-smoker. TECHNIQUE: 2.5 mm sections were obtained from the thoracic inlet through the diaphragm without use of contrast. Coronal and sagittal reconstructed images were obtained. Low dose protocol was utilized. Dose reduction techniques were achieved by using automated exposure control and/or adjustment of mA and/or kV according to patient size and/or use of iterative reconstruction technique. FINDINGS: Visualized portions of the upper abdominal contents appear unremarkable. Similar atherosclerotic change of aorta and its branches as well as coronary arteries noted. Negative for thoracic aortic aneurysm. Heart size is normal. Small calcified subcarinal and left hilar nodes are again noted. A subpleural laterally located left lower lobe calcified granuloma measures 9 mm. No edema, failure or pneumonia has developed in the interval. Mild diffuse background bronchial wall cuffing from mild reactive airways disease without bronchiectasis suspected. No new pulmonary mass or nodule has developed. No acute osseous abnormality noted. Report electronically signed by: Dr. Zana Galarza IMPRESSION: 1. No acute cardiopulmonary process or convincing evidence of new pulmonary malignancy. 2. Sequela of old healed granulomatous disease again identified. L-RAD 1 No findings or minor findings; benign nodules. RECOMMENDATIONS: Annual LDCT screening for 2 years and suggest annual LDCT until patient no longer eligible for definitive treatment. [place], [place] ALT, [facility] 0 ALT [Catalytic activity/Vol] 51 U/L High 0 - 50 U/L [place] AST, [facility] 0 AST [Catalytic activity/Vol] 52 U/L 17 - 59 U/L [place] Basic Metabolic Panel, [facility] 03-21-2020 Calcium [Mass/Vol] 9.1 mg/dL 8.4 - 10. 2 mg/dL [place] Chloride [Moles/Vol] 99 mmol/L [place], [place] CO2 [Moles/Vol] 31 mmol/L [place], [place] Creatinine [Mass/Vol] 0.66 mg/dL 0.66 - 1.25 mg/dL [place] GFR/1.73 sq M predicted among non-blacks MDRD (S/P/Bld) [Vol rate/Area] 104 mL/min/{1.73_m2} >60 mL/min/1.73m2 [place] Comment on above: Stage 1 Kidney damage (e.g., protein in the urine) with normal GFR >=90 Stage 2 Kidney damage with mild decrease in GFR 60-89 Stage 3a Moderate decrease in GFR 45-59 Stage 3b Moderate decrease in GFR 30-44 Stage 4 Severe reduction in GFR 15-29 Stage 5 Kidney failure <15 Glucose [Mass/Vol] 90 mg/dL 65 - 100 mg/dL [place] Potassium [Moles/Vol] 4.3 mmol/L [place] Sodium [Moles/Vol] 141 mmol/L [place] Urea nitrogen [Mass/Vol] 13 mg/dL 9 - 20 mg/dL [place] CBC, [facility] 0 Erythrocyte distribution width (RBC) [Ratio] 11.9 % 11.5 - 14.5 % [place] Hematocrit (Bld) [Volume fraction] 40.4 % Low 42 - 52 % [place] Hemoglobin (Bld) [Mass/Vol] 13.6 g/dL 13.5 - 17.5 g/dL [place] Interpretation and review of laboratory results Abnormal [place] MCH (RBC) [Entitic mass] 32.1 pg 27 - 35 pg [place] MCHC (RBC) [Mass/Vol] 33.7 g/dL 32 - 36 g/dL [place] MCV (RBC) [Entitic vol] 95 fL 80 - 100 fL [place] Platelet mean volume (Bld) [Entitic vol] 9.8 fL 9.4 - 12.3 fL [place] Platelets (Bld) [#/Vol] 169 10*3/uL [place] RBC (Bld) [#/Vol] 4.24 10*6/uL Low [place] WBC (Bld) [#/Vol] 4.3 10*3/uL [place] Ordered by [facility] U[facility]PECIF[facility] [place] Free T4, [facility] 03-21 Free T4 [Mass/Vol] 1.01 ng/dL 0.78 - 2. 19 ng/dL [place] [facility] [place] Hemoglobin A1c, [facility] n 03-21-2020 Glucose [Mass/Vol] 76.5 mg/dL [place] Comment on above: Estimated Average Glucose is a caluculated value from Hemoglobin A1C and is ambulatory service representative of the average blood glucose level in the last 2-3 month period. HbA1c (Bld) [Mass fraction] 4.9 % 4 - 6 % [place] Comment on above: [place] [employer] guidelines indicate that patients with HgbA1C in the range of 5.7-6.4% are at increased risk for development of diabetes, and intervention by lifestyle modification may be beneficial. HgbA1C greater than or equal to 6.5% is considered diagnostic of diabetes. Ordered by [facility] [place] Lipid Panel, [facility] 1 05-21-2019 Cholesterol [Mass/Vol] 175 mg/dL 100 - 200 mg/dL [place] Comment on above: <200 mg/dL is recommended cholesterol level. Cholesterol in HDL [Mass/Vol] 83 mg/dL >40 [place] Cholesterol in LDL [Mass/Vol] 57 mg/dL 20 - 100 mg/dL [place] CHOLESTEROL/HDL RELATIVE RISK 2 [place] Triglyceride [Mass/Vol] 174 mg/dL High 10 - 150 mg/dL [place] Otheron 03-21-2020 Ordered by [place] Interpretation and review of laboratory results Abnormal [place] Ordered [place] PSA Screen, [facility] PSA, TOTAL 0.96 ng/mL 0 - 4 ng/mL [place] Comment on above: [facility] UTILIZES [employer] PSA METHODOLOGY. DIFFERENT TEST METHODS CANNOT BE USED INTERCHANGEABLY. PSA RESULTS IN A GIVEN PATIENT SAMPLE DETERMINED WITH DIFFERENT TESTS AND FROM DIFFERENT MANUFACTURERS CAN VARY DUE TO DIFFERENCES IN TEST METHODS AND REAGENTS. TSH, [facility] 0 TSH Qn 4.420 m[IU]/L [place] Laboratory - Chemistry and C hemistry - challengeon 01-19-2013 25-hydroxyvitamin D3 [Mass/Vol] 30.7 ng/mL Invalid Interpretation Code 30.0-100.0 [facility] CK [Catalytic activity/Vol] 271.0 U/L Invalid Interpretation Code 24-194 [facility] CRP [Mass/Vol] 4.9 mg/L Invalid Interpretation Code 0.0-4.9 [facility] TSH Qn 1.70 m[IU]/L Invalid Interpretation Code 0.50-4.00 [facility] - Hematology and Cell countson 01-19-2013 ESR (Bld) [Velocity] 10 mm/h Invalid Interpretation Code 0-20 [facility] Vital Signs Date Time Vital Sign Value Performing Clinician Facility 03-28-2024 14:55-0500 SaO2% (BldA) [Mass fraction] 99 % [facility] 03-28-2024 14:11-0500 Body height 177.8 cm [facility] 03-28-2024 14:11-0500 Body mass index (BMI) [Ratio] 28.98 kg/m2 [facility] 03-28-2024 14:11-0500 Body surface area Derived from formula 2.13 m2 [facility] 03-28-2024 14:11-0500 Body temperature 98.2 [degF] [facility]ino [employer] 03-28-2024 14:11-0500 Body weight 91.63 kg [facility] 03-28-2024 14:11-0500 Diastolic blood pressure 70 mm[Hg] [facility] 03-28-2024 14:11-0500 Heart rate 64 /min [facility] 03-28-2024 14:11-0500 Respiratory rate 16 /min Mino Whaley y [employer] 03-28-2024 14:11-0500 Systolic blood pressure 134 mm[Hg] Mino Díaz [employer] 03-13-2024 08:14-0500 SaO2% (BldA) [Mass fraction] 99 % Sarah Navarro MD Work Phone: [facility] 03-13-2024 08:05-0500 Body height 175.3 cm Sarah Navarro MD Work Phone: [facility] 03-13-2024 08:05-0500 Body mass index (BMI) [Ratio] 28.35 kg/m2 Sarah Navarro MD Work Phone: [facility] 03-13-2024 08:05-0500 Body temperature 98.71 [degF] Sarah Navarro MD Work Phone: [facility] 03-13-2024 08:05-0500 Body weight 87.09 kg Sarah Navarro MD Work Phone: [facility] 03-13-2024 08:05-0500 Diastolic blood pressure 72 mm[Hg] Sarah Navarro MD Work Phone: [facility] 03-13-2024 08:05-0500 Heart rate 69 /min Sarah Navarro MD Work Phone: [facility] 03-13-2024 08:05-0500 Respiratory rate 16 /min Sarah Navarro MD Work Phone: [facility] 03-13-2024 08:05-0500 Systolic blood pressure 167 mm[Hg] Sarah Navarro MD Work Phone: [facility] 10-09-2021 09:10-0400 Body weight 83.69 kg Jesu Bethea II, MD Work Phone: [facility] 03-26-2021 10:39-0500 Body weight 88.56 kg Aida Benítez PA-C Work Phone: [facility] 03-26-2021 10:39-0500 Diastolic blood pressure 79 mm[Hg] Aida Bamigy PA-C Work Phone: [facility] 03-26-2021 10:39-0500 Heart rate 68 /min Aida Bamigy PA-C Work Phone: [facility] 03-26-2021 10:39-0500 SaO2% (BldA) [Mass fraction] 98 % Aida Conigy PA-C Work Phone: [facility] 03-26-2021 10:39-0500 Systolic blood pressure 135 mm[Hg] Aida Bamigy PA-C Work Phone: [facility] 01-19-2013 13:09-0400 Body height 181.61 cm [facility] 01-19-2013 13:09-0400 Body mass index (BMI) [Ratio] 38.51 kg/m2 [facility] 01-19-2013 13:09-0400 Body surface area Derived from formula 2.53 m2 [facility] 01-19-2013 13:09-0400 Body weight 127.01 kg [facility] 01-19-2013 13:09-0400 Diastolic blood pressure 86 mm[Hg] [facility] 01-19-2013 13:09-0400 Heart rate 84 /min [facility] 01-19-2013 13:09-0400 Systolic blood pressure 134 mm[Hg] [facility] Encounters Encounter Date Encounter Type Care Provider Facility Start: 03-28-2024 Office outpatient ne w 60 minutes Mino Pickens Other [facility] Office Start: 03-14-2024 End: 03-16-2024 Subsequent hospital visit by physician Ciara Walker PA-C Work Phone: [facility] CT Scan Comment on above: Screening for lung c ancer; History of tobacco use Start: 03-14-2024 ambulatory [facility] Start: 03-13-2024 End: 03-13-2024 Emergency department patient visit Sarah Navarro MD Work Phone: [facility] Emergency Department Comment on above: 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) Start: 03-06-2024 [facility] Start: 03-17-2023 ambulatory Ciara Theodor e Beitler III PA-C Facility:[facility] Start: 03-08-2023 End: 03-09-2023 ambulatory Ciara Mich Beitler III PA-C Facility[facility] Start: 03-02-2023 ambulatory Ciara Theodor e Beitler III PA-C Facility:[facility] Start: 02-25-2023 ambulatory Spencer Sorensen caro PA-C Facility:[facility] Start: 02-25-2023 End: 02-26-2023 ambulatory Ciara Mich Beitler III PA-C Facility:[facility] Start: 01-05-2023 End: 01-06-2023 ambulatory Ciara Mich Beitler III PA-C Facility:[facility] Start: 12-15-2022 End: 12-16-2022 ambulatory Ciara Mich Beitler III PA-C Facility:[facility] Start: 03-31-2022 End: 04-01-2022 ambulatory Ciara Mich Beitler III PA-C Facility:[facility] Start: 10-09-2021 End: 10-09-2021 Orders Only Thais Kim [facility] Pl[facility] Surgery Comment on above: Rectus diastasis of lower abdomen (Primary Dx) Start: 10-09-2021 End: 10-09-2021 Office outpatient visit 15 minutes Jesu Bethea MD Work Phone: [facility] Comment on above: Redundant skin of ab domen (Primary Dx); Recent weight loss; Intertrigo; Nicotine vapor product user Start: 04-24-2021 End: 12-14-[address] LYNNE CUETO Facility:[facility] Start: 03-26-2021 End: 03-26-2021 ambulatory AIDA BENÍTEZ [facility] Start: 03-26-2021 End: 03-26-2021 Office consultation new/estab patient 30 min Aida Benítez PA-C Work Phone: [facility] Comment on above: Redundant skin of ab weinberg (Primary Dx); Recent weight loss Start: 07-11-2020 End: 07-11-2020 Orders Only Barby Caba Matthew Work Phone: [facility] Start: 06-11-2020 End: 06-13-2020 Subsequent hospital visit by physician [facility] Ct/Pet Room [facility] CT Scan Comment on above: Ex-smoker Start: 05-28-2020 End: 05-28-2020 Subsequent hospital visit by physician Opal Don Work Phone: [facility] Audiology Start: 03-21-2020 End: 03-21-2020 Subsequent hospital visit by physician Ciara Walker [facility] Laboratory Start: 11-20-2014 End: 11-20-2014 Patient encounter procedure THAIS WRIGHT [facility] Start: 01-19-2013 Office Services Ilan rajan Other [facility] Office Start: 11-28-2012 End: 11-29-2012 Patient encounter procedure MIGUEL DIALLO [facility] Procedures Date Procedure Procedure Detail Performing Clinician Start: 03-28-2024 Ct thorax w/contrast material Mino Pickens Start: 03-28-2024 Ct thorax w/o & w/co ntrast material Mino Pickens Start: 03-28-2024 Ct thorax w/o contra st material Mino Pickens Start: 03-14-2024 CT Chest for screening Ciara Walker PA-C Work Phone: Start: 03-06-2024 PSA screening CIARA MCGHEE Comment on above: Result Comment: [facility] UTILIZES [employer] PSA METHODOLOGY. DIFFERENT TEST METHODS CANNOT BE USED INTERCHANGEABLY. PSA RESULTS IN A GIVEN PATIENT SAMPLE DETERMINED WITH DIFFERENT TESTS AND FROM DIFFERENT MANUFACTURERS CAN VARY DUE TO DIFFERENCES IN TEST METHODS AND REAGENTS. Performed By: #### F T4, CMP, [id number], LIPD, PSA #### [id number] [place] [address] Ph. [phone] Start: 02-04-2021 Colonoscopy Sarah willard MD Work Phone: Start: 06-11-2020 CT LUNG SCREENING Petar Walker Work Phone: Start: 03-21-2020 ALT, [facility] Unknow n Provider Result Start: 03-21-2020 AST, [facility] Unknow n Provider Result Start: 03-21-[address] METABOLIC PANE L, [facility] Unknown Provider Result Start: 03-21-2020 CBC, [facility] Unknow n Provider Result Start: 03-21-2020 FREE T4, [facility] Un known Provider Result Start: 03-21-2020 HEMOGLOBIN A1C, [facility] Unknown Provider Result Start: 03-21-2020 LIPID PANEL, [facility] Unknown Provider Result Start: 03-21-2020 PSA SCREEN, [facility] Unknown Provider Result Start: 03-21-2020 TSH, [facility] Unknow n Provider Result Start: 01-19-2013 C-reactive protein measurement Mino Pickens Start: 01-19-2013 Creatine kinase measurement Mino Pickens Start: 01-19-2013 Erythrocyte sediment ation rate, non-automated Mino Pickens Start: 01-19-2013 Plain radiography of pelvis Mino Pickens Start: 01-19-2013 Radiologic exam both knees standing anteropost Mino Pickens Start: 01-19-2013 Thyroid stimulating hormone measurement Mino Pickens Start: 01-19-2013 Vitamin D, 25-hydrox y measurement Mino Pickens Plan of Treatment Date Care Activity Detail Author Start: 02-04-2027 Screening for malign ant neoplasm of colon [facility] Start: 03-12-2025 End: 03-12-2025 Patient encounter procedure 03/12/2025 10:30 AM EST Office Visit [facility] Medical Providers at [address] [id number] Ciara Walker PA-C [address] [place] [phone] [facility] Medical Providers at [facility] Comment on above: annual Start: 03-06-2025 Depression Screen Depression Screen [facility] Start: 03-06-2025 Lipid panel Lipids [facility] Start: 03-28-[address] chest [facility] Start: 03-14-2024 End: 03-14-2024 Patient encounter procedure 03/14/2024 8:00 AM EST Appointment [facility] CT Scan [address] [place], [place] [phone] Ciara Walker PA-C [address] [place] [address] [facility] [address] Scan Comment on above: Routine Start: 01-09-2024 COVID-19 Vaccine ( season) COVID-19 Vaccine ( season) [facility] Start: 08-17-2023 Abdominal aortic ane urysm screening AAA screen [facility] Start: 08-17-2023 Pneumococcal 65+ yea rs Vaccine (1 of 1 - PCV) Pneumococcal 65+ years Vaccine (1 of 1 - PCV) [facility] Start: 08-12-2023 Annual Wellness Visi t (Medicare) Annual Wellness Visit (Medicare) [facility] Start: 09-01-2021 End: 09-01-2021 Patient encounter procedure 09/01/2021 Office Visit Plastic Surgery Jesu Bethea II, MD [facility] [place] [address] [facility] Start: 06-21-2021 COVID-19 Vaccine (4 - Booster for Pfizer series) COVID-19 Vaccine (4 - Booster for Pfizer series) [facility] Start: 02-25-2021 End: 02-25-2021 Office Visit 02/25/2021 Office Visit Primary Care Ciara Walekr PA-C [address] [facility] [place], [place] [phone] [facility] Start: 01-08-2021 Influenza vaccination Sequenti al Influenza Vaccine (#1) [facility] Start: 01-01-2021 End: 01-01-2021 Appointment 01/01/2021 Appointment Audiology Opal Don, AuD [address] [facility] [place], [place] [phone] [facility] Audiology Start: 05-28-2020 End: 05-28-2020 Appointment 05/28/2020 Appointment Audiology Opal Don, AuD [address] [place], [place] [phone] [facility] Audiology Start: 01-09-2020 Influenza vaccination Flu vaccine (# 1) [place] Start: 01-09-2020 Influenza vaccinatio n given Sequential Influenza Vaccine (#1) [facility] Start: 2018 Respiratory Syncytia l Virus (RSV) or age 60 yrs+ (1 - 1-dose 60+ series) Respiratory Syncytial Virus (RSV) or age 60 yrs+ (1 - 1-dose 60+ series) [facility] Start: 2008 Administration of he rpes zoster vaccine Zoster Vaccines (1 of 2) [facility] Start: 2008 Screening for malign ant neoplasm of colon [facility] Start: 2008 Shingles Vaccine (1 of 2) Milner gles Vaccine (1 of 2) [place] Start: 08-17-2003 Screening for malign ant neoplasm of colon [facility] Start: 1977 DTaP/Tdap/Td vaccine (1 - Tdap) DTaP/Tdap/Td vaccine (1 - Tdap) [facility] Start: 1976 Hepatitis C antibody , confirmatory test Hepatitis C Screening [facility] Start: 1976 Hepatitis C screening [facility] Start: 1974 COVID-19 Vaccine (1 of 2) COVI D-19 Vaccine (1 of 2) [facility] Start: 1973 HIV screening [facility] Start: 1970 Adolescent depressio n screening assessment Depression Screening (PHQ9) [facility] Start: 1970 Depression screening using PHQ-9 (Patient Health Questionnaire 9) score Depression Screening (PHQ-2/9) [facility] Start: 1968 Lipid panel Lipid screen [place], [place] Start: 1961 History and physical examination, annual for health maintenance Wellness Visit [facility] Start: 1960 Creatinine measurement Creatinine mo nitoring [place], [place] Start: 1958 Hepatitis C screening Hepatitis C sc reen [place], [place] Start: 1958 Potassium monitoring Potassium monit oring [place], [place] Start: 1958 Prostate specific an tigen measurement PSA Level [facility] Start: 1960 Screening for malign ant neoplasm of lung Low-dose CT Lung Cancer Screen [facility] Start: 1960 Tetanus vaccination Tetanus: Every 1 0yrs [facility] Start: 1960 TSH Qn TSH testing [place], [place] End: 10-09-[address] Abdomen Without Contrast Imaging Routine Rectus diastasis of lower abdomen 1 Occurrences starting 10/09/2021 until 10/09/2022 [facility] Work Phone: Comment on above: 1 Occurrences starti ng 10/09/2021 until 10/09/2022 Immunizations Immunization Date Immunization Notes Care Provider Kenji decker 03-06-2024 influenza, high dose seasonal, preservative-free Sarah Navarro MD Work Phone: [facility] Work Phone: 04-27-2022 zoster vaccine recombinant Sarah Navarro MD Work Phone: [facility] 04-21-2022 influenza, injectabl e, quadrivalent, preservative free Sarah Navarro MD Work Phone: [facility] Work Phone: 02-23-2022 zoster vaccine recombinant Sarah Navarro MD Work Phone: [facility] 04-22-2021 Influenza, injectabl e, Madin Marcia Canine Kidney, preservative free, quadrivalent Sarah Navarro MD Work Phone: [facility] 03-21-2020 influenza, injectabl e, quadrivalent, preservative free Sarah Navarro MD Work Phone: [facility] Payers Date Payer Category Payer Medicare [id number] 2023 Unknown [id number] 2017 Unknown MMO MED [employer] S UPERMED PPO [id number] 2017-Present [id number] 2016 Unknown [id number] 2016 Unknown [id number] 2014 Unknown [id number] 1959 Self-pay 1960 Unknown [id number] 1958 Unknown [id number] [id number] 1958 Unknown [id number] [id number] 1958 Unknown [id number] [id number] 1958 Unknown [id number] [id number] 1958 Unknown [id number] 2.16.840.1.610726.3.579.2.196 1958 Unknown [id number] 2.16.840.1.756384.3.579.2.196 1958 Unknown [id number] 2.16.840.1.757408.3.579.2.196 1958 Unknown [id number] 2.16.840.1.924779.3.579.2.196 1958 Unknown [id number] 2.16.840.1.295340.3.579.2.196 1958 Unknown [id number] 2.16.840.1.994408.3.579.2.196 1958 Unknown [id number] 2.16.840.1.413658.3.579.2.196 1958 Unknown [id number] 2.16.840.1.807976.3.579.2.196 1958 Unknown [id number] 2.16.840.1.161345.3.579.2.754 1958 Unknown [id number] [id number] 1958 Unknown [id number] Social History Date Type Detail Facility Start: 02-20-2020 End: 02-23-2022 Tobacco smoking status NHIS Former [place] End: 03-10-2011 History of tobacco use Cigarette Sm[place] History of tobacco use Cigar Sm[place] Start: 02-20-2020 End: 02-23-2022 Tobacco use and exposure Never used [place] Start: 02-20-2020 End: 03-13-2024 Alcohol intake Current drinker of alcohol (finding) [place] Start: 02-20-2020 History SDOH Alcohol Frequency 5 [place] Start: 02-20-2020 History SDOH Alcohol Std Drinks 1 [place] Start: 1960 Sex Assigned At Not on file [place] Start: 1960 Sex Assigned At Male [place] End: 03-10-2011 History of tobacco use Current smoker [facility] Start: 03-15-2018 End: 03-13-2024 Cigarettes smoked current (pack per day) - Reported 3 [facility] Start: 09-29-2021 End: 10-09-2021 Exposure to SARS-CoV-2 (event) Not sure [facility] Start: 02-20-2020 End: 03-13-2024 Alcohol Use Disorder Identification Test - Consumption [AUDIT-C] [facility] How often to you hav e a drink containing alcohol? 4 or more times a week [facility] How many standard dr inks containing alcohol do you have on a typical day? 1 or 2 [facility] Work Phone: Frequency of Binge Drinking Not on file [facility] Work Phone: (I/We) worried mike ivan (my/our) food would run out before (I/we) got money to buy more. Never true [facility] Work Phone: At any time in the p ast 12 months, were you homeless or living in [facility] [including now]? No [facility] Work Phone: Start: 03-13-2024 Alcohol Comment couple drinks/day [facility] Work Phone: Start: 06-10-2020 Gender identity Identifies as male gender (finding) [facility] Work Phone: Start: 06-10-2020 Sexual orientation Heterosexual (finding) [facility] Work Phone: Start: *Tobacco [facility] Start: Denies substance abuse [facility] Start: Alcohol [facility] Start: Caffeine [facility] Discharge instructions 03-13-2024 Discharge InstructionsAttachments Note Date & Type Note Facility 03-13-2024 Hospital Discharg e instructions Sarah Navarro MD - 03/13/2024 8:53 AM EST Continue to clean wound and bandage for the next 48 hours as discussed in the ER today The following attachments cannot be sent through Care Everywhere.Compression Stockings: General Info (Ghanaian)documented in this encounter [facility] Work Phone: History of Present illness Narrative 10-09-2021 Jesu Bethea II, MD - 10/09/2021 9:25 AM EDT Note Date & Type Note Facility 10-09-2021 History of Presen t illness Narrative Shashi Perez male 61 y.o. Brief Review of HPI, Focused Exam, and Assessment and Plan Shashi Perez returns to assess readiness for surgery to address redundant skin of his abdomen and breasts. Over the last year and a half, he has lost nearly 100 pounds through diet and exercise. He has reached his goal and has been weight stable for over 6 months. With exercise, the redundant skin of his breasts becomes tender and painful despite wearing compression garment to minimize soft tissue movement. He also relates getting rashes under the folds of his abdominal skin with warm weather and sweating during exercise. He does vape nicotine on a daily basis. Exam shows redundant skin of his abdominal wall, above and below the umbilicus, grade 1 including loose skin at his flanks. Enlarged breast tissue bilaterally with grade 1 ptosis. No masses. Plan- we discussed surgical options to address both abdomen and breasts. I instructed him to stop smoking for at least 6 weeks prior to insurance submission. CT of the abdomen is ordered to assess abdominal wall musculature, rule out diastasis. We will see him back in about 8 weeks. Pictures were taken today. Allergies: Patient has no known allergies. Patient's Medications New Prescriptions No medications on file Previous Medications ASPIRIN 81 MG EC TABLET Take 81 mg by mouth daily . COENZYME Q10 200 MG CAPSULE Take by mouth . HYDROXYCHLOROQUINE (PLAQUENIL) 200 MG TABLET LEVOTHYROXINE (SYNTHROID, LEVOTHROID) 175 MCG TABLET Take 175 mcg by mouth daily . LOSARTAN-HYDROCHLOROTHIAZIDE (HYZAAR) 100-25 MG PER TABLET SIMVASTATIN (ZOCOR) 20 MG TABLET Take 20 mg by mouth nightly . SYNTHROID 200 MCG TABLET TADALAFIL (CIALIS) 5 MG TABLET Take 5 mg by mouth daily . Modified Medications No medications on file Discontinued Medications No medications on file Review of Systems Constitutional: Negative for chills and fever. HENT: Negative for nosebleeds, rhinorrhea, sinus pressure and sneezing. Eyes: Negative for pain, redness and itching. Respiratory: Negative for cough, choking, shortness of breath and wheezing. Cardiovascular: Negative for chest pain and palpitations. Gastrointestinal: Negative for nausea and vomiting. Endocrine: Negative for polydipsia and polyuria. Neurological: Negative for dizziness, seizures, syncope, facial asymmetry and weakness. Active Ambulatory Problems Diagnosis Date Noted No Active Ambulatory Problems Resolved Ambulatory Problems Diagnosis Date Noted No Resolved Ambulatory Problems Past Medical History: Diagnosis Date HTN (hypertension) Skin disorder Social History Socioeconomic History Marital status: Tobacco Use Smoking status: Former Packs/day: 3.00 Years: 45.00 Pack years: 135.00 Types: Cigarettes Quit date: 03/10/2011 Years since quittin.5 Smokeless tobacco: Never Vaping Use Vaping Use: Every day Substances: Nicotine Substance and Sexual Activity Alcohol use: Yes Drug use: No Data Unavailable History reviewed. No pertinent family history. EXAM Vitals: 10/09/21 0910 Weight: 83.7 kg (184 lb 8 oz) General: Normal Mood and affect, pleaseant demanor HEENT: Pupils Equal Round Reactive to Light; Extraocular Movements intact Chest: Normal Rise and Fall, Heart Rate is regular with normal rhythm. No swelling in the extremities Normal 2 + pulses, Normal Gross sensation to hands and feet. Normal Gait and stride, with normal arm and shoulder motion. Physical Exam Jesu Bethea II, MD documented in this encounter [facility] History of Present illness Narrative 03-26-2021 Aida Benítez PA-C - 03/26/2021 3:23 PM EST Note Date & Type Note Facility 03-26-2021 History of Presen t illness Narrative Shashi Perez male 60 y.o. Chief Complaint Advice Only Brief Review of HPI, Focused Exam, and Assessment and Plan Shashi Perez is a 60 year old man referred by Ciara Walker PA-C for redundant skin of his abdomen and chest after recent intentional weight loss. In the past eleven months, he has lost 85 pounds through diet and exercise. With exercise, the redundant skin of his breasts is tender and painful despite wearing compression garment to minimize soft tissue movement. He also relates getting rashes under the folds of his abdominal skin with warm weather and sweating during exercise. He hopes to lose 10 pounds to get to his goal weight of 185 pounds which he projects to reach by the end of the year. He also has issue with skin redundancy in his neck area with the weight loss.He is treated for hypothyroidism. On exam, there is redundant skin of his abdominal wall, above and below the umbilicus, grade 1. Enlarged breast tissue bilaterally with grade 1 ptosis. No masses. He does wear compression tank for comfort. Plan- encouraged his continued weight loss to goal. Once he has maintained this for several months, return for evaluation to discuss his surgical options with Dr. Bethea. Allergies: Patient has no known allergies. Review of Systems Constitutional: Negative for chills and fever. HENT: Negative for nosebleeds, rhinorrhea, sinus pressure and sneezing. Eyes: Negative for pain, redness and itching. Respiratory: Negative for cough, choking and shortness of breath. Cardiovascular: Negative for chest pain and palpitations. Gastrointestinal: Negative for nausea and vomiting. Endocrine: Negative for polydipsia and polyuria. Musculoskeletal: Positive for myalgias. Skin: Positive for rash. Negative for wound. Neurological: Negative for dizziness, seizures, syncope and facial asymmetry. Physical Exam Data Unavailable EXAM Vitals: 03/26/21 1039 BP: 135/79 Pulse: 68 SpO2: 98% Weight: 88.6 kg (195 lb 4 oz) General: Normal Mood and affect, pleaseant demanor HEENT: Pupils Equal Round Reactive to Light; Extraocular Movements intact Chest: Normal Rise and Fall, Normal Gait and stride, with normal arm and shoulder motion. Aida Benítez PA-C documented in this encounter [facility] Evaluation note Note Date & Type Note Facility Evaluation note Diagnosis Redundant skin of abdomen- Primary Recent weight loss documented in this encounter [facility] Evaluation note Note Date & Type Note Facility Evaluation note Diagnosis Rectus diastasis of lower abdomen- Primary documented in this encounter [facility] Evaluation note Note Date & Type Note Facility Evaluation note Diagnosis Redundant skin of abdomen- Primary Recent weight loss Intertrigo Other specified erythematous condition Nicotine vapor product user documented in this encounter [facility] Evaluation note Note Date & Type Note Facility Evaluation note Diagnosis Bleeding from varicose vein- Primary Varicose veins of lower extremities with other complications documented in this encounter [facility] Work Phone: Evaluation note Note Date & Type Note Facility Evaluation note Diagnosis Screening for lung cancer History of tobacco use Personal history of tobacco use, presenting hazards to health documented in this encounter [facility] Work Phone: Summary Purpose Family History No Family History Records FoundNo Family History Records FoundNo Family History Records FoundNo Family History Records FoundNo Family History Records FoundNo Family History Records FoundNo Family History Records Found Advance Directives Documents on File Type Date Recorded Patient Life Agent Expl anation Advance Directives and Living Will Date Activated Date Inactivated Comments 02/04/2021 8:14 AM 02/04/2021 11:43 AM Date Activated Date Inactivated Comments 02/04/2021 8:14 AM 02/04/2021 11:43 AM History of Present Illness * Opal Don, AuD - 05/28/2020 10:00 AM EST Name: Shashi Perez : 1960 Age: 59 y.o. Date of Appointment: 05/28/20 Audiologic Case History: Patient is a 59 y.o. male seen today for a hearing aid check. The patient reported he has been doing well with the hearing aids. He noted yesterday morning he noticed the right hearing aid mat gauger was broken and spinning around where it connects into the hearing aid. He reported the left hearing aid has been having some intermittent feedback. The patient noted he needs domes, wax guards, and a new cleaning brush. Audiology Appointment Note: Patient was fit with: Phonak Audeo M90-R Right SN: [id number] Left SN: [id number] Dome size: small vented for right and medium open for left Master Cosmetologist length: 2M for the right and 2S for the left Phonak Warranty expires: 08/04/2021 Otoscopy revealed minimal cerumen accumulation bilaterally. Tympanic membranes were visualized and appropriate landmarks were present bilaterally. Cleaned and checked both hearing aids. Initial listening check revealed the right hearing aid was not amplifying due to broken mat gauger. Replaced the patient's right mat gauger (2M) under warranty. The left hearing aid was working well. Upon visual inspection it was noted the left hearing aid wax guard was full of debris. Vacuumed microphones and receivers. Ran through desiccator cycle. Changed domes and wax guards. Cleaned battery contacts. Post cleaning listening check was good for both. Connected hearing aids to the programming software. Firmware update was completed binaurally therefore datalogging could not be reviewed. Reran feedback sem manager for both hearing aids. Dispensed 4 sets of domes, one package of wax guards, and one cleaning brush. Recommendations: 1. Patient to continue use of binaural amplification. 2. Patient to return for a hearing aid check appointment in 6-8 months or sooner if problems arise. 3. Patient to contact the department as needed. Maik FAYE documented in this encounter Reason for Referral Status Reason Specialty Diagnoses / Procedures Referre d By Contact Referred To Contact Closed Radiology Diagnoses Ex-smoker Procedures CT LUNG SCREENING Ciara Walker PA-C [address] [place] [address] Specialty Diagnoses / Procedures Referred By Brody padgett Referred To Contact Radiology Diagnoses Rectus diastasis of lower abdomen Procedures CT Abdomen Without Contrast Jesu Bethea II, MD [facility] [place] [address] Referral ID Status Reason Start Date Expiration Date V isits Requested Visits Authorized [id number] New Request 10/09/2021 10/09/2022 1 1 Specialty Diagnoses / Procedures Referred By Brody padgett Referred To Contact Radiology Diagnoses Screening for lung cancer History of tobacco use Procedures CT LUNG SCREENING Ciara Walker PA-C [address] [place] [address] Referral ID Status Reason Start Date Expiration Date Visits Re quested Visits Authorized [id number] Closed 03/10/2024 03/10/2025 1 1 Assessments Diagnosis Ex-smoker Personal history of tobacco use, presenting hazards to health Additional Source Comments (unrecognized sect ion and content) No Status Records FoundNo Status Records FoundNo Status Records FoundNo Status Records FoundNo Status Records FoundNo Status Records FoundNo Status Records Found INFORMATION SOURCE (unrecogn ized section and content) DATE CREATED AUTHOR 04/17/2018 [facility] DATE CREATED AUTHOR AUTHOR'S ORGANIZ ATION 04/17/2018 [facility] DATE CREATED AUTHOR AUTHOR'S ORGANIZ ATION 02/08/2021 [facility] DATE CREATED AUTHOR AUTHOR'S ORGANIZ ATION 10/09/2021 [facility] DATE CREATED AUTHOR AUTHOR'S ORGANIZ ATION 12/14/2021 [facility] DATE CREATED AUTHOR AUTHOR'S ORGANIZ ATION 03/15/2023 [facility] DATE CREATED AUTHOR AUTHOR'S ORGANIZ ATION 03/15/2024 [facility] Reason for Visit (unrecogniz ed section and content) Status Reason Specialty Diagnoses / Procedures Referre d By Contact Referred To Contact Closed Radiology Diagnoses Ex-smoker Procedures CT LUNG SCREENING Ciara Walker PA-C [address] [place] [address] Reason Comments Advice Only Skin removal Specialty Diagnoses / Procedures Referred By Brody padgett Referred To Contact Radiology Diagnoses Screening for lung cancer History of tobacco use Procedures CT LUNG SCREENING Ciara Walker PA-C [address] [place] [address] Referral ID Status Reason Start Date Expiration Date Visits Re quested Visits Authorized [id number] Closed 03/10/2024 03/10/2025 1 1 Care Teams (unrecognized sec tion and content) Director Imaging Relationship Specialty Start Date End Date Ciara Walker III, PA-C [address] [place] [address] PCP - General Physician Slot Router 03/21/21 Director Imaging Relationship Specialty Start Date End Date Ciara Walker III, PA-C [address] [place] [address] PCP - General Physician Slot Router 03/21/21 Director Imaging Relationship Specialty Start Date End Date Ciara Walker III, PA-C [address] [place] [address] PCP - General Physician Slot Router 03/21/21 Director Imaging Relationship Specialty Start Date End Date Ciara Walker PA-C PCP - General Family Medicine 02/01/20 Director Imaging Relationship Specialty Start Date End Date Ciara Walker PA-C PCP - General Family Medicine 02/01/20 FOR RECORDS PERTAINING TO PATIENTS WHO ARE OR HAVE BEEN ENROLLED IN A CHEMICAL DEPENDENCY/SUBSTANCEABUSE PROGRAM, SOME INFORMATION MAY BE OMITTED. This clinical summary was aggregated from multiple sources. Caution should be exercised in using it in the provision of clinical care. This summary normalizes information from multiple sources, and as a consequence, information in this document may materially change the coding, format and clinical context of patient data. In addition, data may be omitted in some cases. CLINICAL DECISIONS SHOULD BE BASED ON THE PRIMARY CLINICAL RECORDS. [facility] [employer] [facility] provides no warranty or guarantee of the accuracy or completeness of information in this document.
== END 2024-03-31 10:46 | disposition home or self-care (01) ==
LOC: VC 09:51
PROVIDERS: PCP Radiology Diagnostic Radiology; Visit Provider Radiology Diagnostic Radiology
DX: I83.813 Varicose veins of bilateral lower extremities with pain (principal)
CPT/HCPCS: 36478

== ENCOUNTER 2024-04-04 12:29 | Outpatient (OUT) | payer MEDICARE, BC, SELFPAY ==
--- NOTE | 2024-04-04 07:41 | V.VEINS.HP ---
Varicose Veins Patient in this day for follow up ultrasound post EVLT of left leg. Kevon Morton MD personally performed the services described in this documentation, as scribed by Myrtle Orellana RVT, RDMS in my presence and it is both accurate and complete. Myrtle Morton RVT, RDMS, am scribing for, and in the presence of, Dr. Kevon Simmons and in the presence of the patient. . thigh: bilateral (symptomsl left leg > right leg), knee: bilateral, calf: bilateral, ankle: bilateral and cordova: bilateral cramping 5 years Worsened in recent months: Yes standing elevating extremities, compression stockings and exercise Reports muscle spasms of leg, edema and leg edema History of lower extremity trauma: No Superficial thrombophlebitis: No Family history of varicose veins: no Has patient had previous lower extremity venous surgery: No Patient has previously received the following treatment(s) for lower extremity varicose veins: Reports none Does patient have a history of : not applicable Has patient had lower extremity venous scan with relux testing: No Support hose used: Yes Problems walking or doing physical activity: Yes How does it affect you: muscle spasms Do you walk much: Yes Do you stand much: Yes Review of Systems ROS Narrative Kevon Morton MD personally performed the services described in this documentation, as scribed by Myrtle Orellana RVT, RDMS in my presence and it is both accurate and complete. Myrtle Morton RVT, RDMS, am scribing for, and in the presence of, Dr. Kevon Simmons and in the presence of the patient. Status of ROS 10 or more systems reviewed and unremarkable except as noted in history and below Cardiovascular Reports: edema Integumentary/Breast Reports: changes in skin color Hematologic/Lymphatic Reports: easy bleeding [facility]SH [facility] Medical History (Updated 03/31/24 @ 10:16 by Errol Trujilol) Superficial thrombophlebitis of left leg ?I80.02 - Phlebitis and thrombophlebitis of superficial vessels of left lower extremity (ICD-10) Rotator cuff arthropathy ?M12.819 - Other specific arthropathies, not elsewhere classified, unspecified shoulder (ICD-10) Lung nodule ?R91.1 - Solitary pulmonary nodule (ICD-10) Hypertension ?I10 - Essential (primary) hypertension (ICD-10) Pain due to varicose veins of both lower extremities ?I83.813 - Varicose veins of bilateral lower extremities with pain (ICD-10) Surgical History (Updated 03/31/24 @ 10:15 by Errol Trujillo) Status post laser ablation of incompetent vein ?Z98.890 - Other specified postprocedural states (ICD-10) H/O nasal septoplasty ?Z98.890 - Other specified postprocedural states (ICD-10) Family History (Updated 03/22/24 @ 10:24 by Errol Trujillo) Other Alzheimer dementia Family history of cancer Social History (Updated 03/22/24 @ 10:25 by Errol Trujillo) Within the past year, how often did you have a drink containing alcohol: 2-3 times a week Smoking status: Former smoker Non-prescribed substance use: denies use Meds Home Medications and Allergies Home Medications ?Medication ?Instructions ?Recorded ?Confirmed ?Type atorvastatin 20 mg tablet 20 mg PO DAILY 03/22/24 03/22/24 History levothyroxine 75 mcg tablet 75 mcg PO DAILY 03/22/24 03/22/24 History (Synthroid) losartan 25 mg tablet 25 mg PO DAILY 03/22/24 03/22/24 History Allergies Allergy/AdvReac Type Severity Reaction Status Date / Time No Known Drug Allergies Allergy Verified 03/22/24 10:27 Exam Narrative Exam Narrative: Kevon Morton MD personally performed the services described in this documentation, as scribed by Myrtle Orellana RVT, RDMS in my presence and it is both accurate and complete. Myrtle Morton RVT, RDMS, am scribing for, and in the presence of, Dr. Kevon Simmons and in the presence of the patient. Results Imaging Venous US: Radiologist's impression: The ultrasound demonstrates Heat induced thrombus visualized arising 1.5cm from the SFJ. The heat induced thrombus extends from groin to distal calf. Assessment and Plan Assessment and Plan (1) Superficial thrombophlebitis of left leg: Plan Patient in today for follow up ultrasound of lower extremity following treatment of EVLT of left leg GSV completed on 03/31/24. Kevon Morton MD personally performed the services described in this documentation, as scribed by Myrtle Orellana RVT, RDMS in my presence and it is both accurate and complete. I, Myrtle Orellana RVT, RDMS, am scribing for, and in the presence of, Dr. Kevon Simmons and in the presence of the patient.
--- NOTE | 2024-04-04 07:49 | P.DS_ITS ---
Discharge Plan Discharge Disposition: Home, Self-Care Outpatient Diagnostics: VC INJ Foam Sclerosant WULincoln SCRAP KETTLE TENDER (Routine) Timeframe: 2 Weeks Facility: [facility] - Location: [facility] Ordered By: Kevon Simmons Follow Up Appointments: 04/13/24 Plan of Treatment: Varithena/microfoam chemical ablation left leg. Print Language: Malay Discharge Date/Time: 04/04/24 13:06
--- NOTE | 2024-04-04 12:31 | VEIN_ITS ---
Patient Name: SHASHI SAAB MR#: [id number] : 1960 Exam Date: 04/04/2024 Ordering Doctor: DR LYNNE CUETO M.D. RADIOLOGY REPORT PROCEDURE: FACILITY EST [facility] - OFFICE VISIT FOLLOW UP COMPARISON: None. PROGRESS NOTES: The patient reports improvement in leg symptoms. There has been interval reduction in varicosities. The patient has followed our recommendations to walk 20-30 minutes once or twice per day since the procedure. Physical exam demonstrates decrease in varicosities of the leg. Persistent varicose veins are identified along the legs bilaterally. Review of the ultrasound performed the same day demonstrates occlusive thrombus extending throughout the treated vein(s), see separate report, consistent with a successful ablation. No thrombus extending into or beyond the saphenofemoral junction. The patient expressed a desire to proceed with treatment of remaining incompetent varicosities. The patient was informed that treatment was a process and would require several procedures/sessions. VEIN/ Facility EST TD IMPRESSION: 1. Successful ablation of the left great saphenous vein(s). 2. Persistent varicose veins and lower extremity symptoms. PLAN: 1. Microfoam chemical ablation of lower left leg hemorrhagic vein(s). Nurse notes, history and physical were reviewed and confirmed, see attached forms. The nurse was present throughout the physical exam and consultation Dictated by: Kevon Simmons M.D. on 04/04/2024 at 13:02 Approved by: Kevon Simmons M.D. on 04/04/2024 at 13:04
--- NOTE | 2024-04-04 12:31 | VEIN_ITS ---
Patient Name: SHASHI SAAB MR#: [id number] : 1960 Exam Date: 04/04/2024 Ordering Doctor: DR LYNNE CUETO M.D. RADIOLOGY REPORT PROCEDURE: VC EXT VENOUS LT LIMITED COMPARISON: None. INDICATIONS: I80.02 - Phlebitis and thrombophlebitis of superficial ve... TECHNIQUE: Lower extremity michelle scale and Duplex Doppler evaluation of the deep venous system from the inguinal ligament through the calf veins. FINDINGS: REGION: Left lower extremity. THROMBI: Negative for DVT. Heat induced thrombus visualized arising 1.5cm from the SFJ. The heat induced thrombus extends from groin to distal calf. COMPRESSIBILITY: Non-compressible segments corresponding to thrombus FLOW: Areas of no flow corresponding to thrombus OTHER: CONCLUSION: 1. Successful post ablation occlusion of left great saphenous vein. Dictated by: Kevon Simmons M.D. on 04/04/2024 at 13:01 Approved by: Kevon Simmons M.D. on 04/04/2024 at 13:02
== END 2024-04-04 13:06 | disposition home or self-care (01) ==
LOC: VC 12:29
PROVIDERS: PCP Radiology Diagnostic Radiology; Visit Provider Radiology Diagnostic Radiology
DX: I80.02 Phlebitis and thrombophlebitis of superficial vessels of left lower extremity (principal)
CPT/HCPCS: 93971; G0463

== ENCOUNTER 2024-04-13 13:14 | Outpatient (OUT) | payer MEDICARE, BC, SELFPAY ==
--- NOTE | 2024-04-13 11:30 | V.VEINS.HP ---
Vital Signs 04/13/24 13:31 BP 140/60 BP Location Left Brachial BP Position Sitting BP Cuff Size Adult BP Source Manual Cuff Respiration 16 Pulse 67 Pulse Source Monitor Pulse Oximetry (%) 99 Oxygen Delivery Method Room Air Comment The patient's blood pressure is elevated. Varicose Veins Patient in this day for Varithena/microfoam chemical ablation left leg. Jose Morton MD personally performed the services described in this documentation, as scribed by Kiana Tam RN in my presence and it is both accurate and complete. IKiana RN, am scribing for, and in the presence of, Dr. Jose Tomas and in the presence of the patient. thigh: bilateral (symptomsl left leg > right leg), knee: bilateral, calf: bilateral, ankle: bilateral and cordova: bilateral cramping 5 years Worsened in recent months: Yes standing elevating extremities, compression stockings and exercise Reports muscle spasms of leg, edema and leg edema History of lower extremity trauma: No Superficial thrombophlebitis: No Family history of varicose veins: no Has patient had previous lower extremity venous surgery: No Patient has previously received the following treatment(s) for lower extremity varicose veins: Reports none Does patient have a history of : not applicable Has patient had lower extremity venous scan with relux testing: No Support hose used: Yes Problems walking or doing physical activity: Yes How does it affect you: muscle spasms Do you walk much: Yes Do you stand much: Yes Review of Systems ROS Narrative Jose Morton MD personally performed the services described in this documentation, as scribed by Kiana Tam RN in my presence and it is both accurate and complete. Kiana Morton RN, am scribing for, and in the presence of, Dr. Jose Tomas and in the presence of the patient. Status of ROS 10 or more systems reviewed and unremarkable except as noted in history and below Cardiovascular Reports: edema Integumentary/Breast Reports: changes in skin color Hematologic/Lymphatic Reports: easy bleeding [facility] Medical History (Updated 03/31/24 @ 10:16 by Errol Trujillo) Superficial thrombophlebitis of left leg ?I80.02 - Phlebitis and thrombophlebitis of superficial vessels of left lower extremity (ICD-10) Rotator cuff arthropathy ?M12.819 - Other specific arthropathies, not elsewhere classified, unspecified shoulder (ICD-10) Lung nodule ?R91.1 - Solitary pulmonary nodule (ICD-10) Hypertension ?I10 - Essential (primary) hypertension (ICD-10) Pain due to varicose veins of both lower extremities ?I83.813 - Varicose veins of bilateral lower extremities with pain (ICD-10) Surgical History (Updated 03/31/24 @ 10:15 by Errol Trujillo) Status post laser ablation of incompetent vein ?Z98.890 - Other specified postprocedural states (ICD-10) H/O nasal septoplasty ?Z98.890 - Other specified postprocedural states (ICD-10) Family History (Updated 03/22/24 @ 10:24 by Errol Trujillo) Other Alzheimer dementia Family history of cancer Social History (Updated 03/22/24 @ 10:25 by Errol Trujillo) Within the past year, how often did you have a drink containing alcohol: 2-3 times a week Smoking status: Former smoker Non-prescribed substance use: denies use Meds Home Medications and Allergies Home Medications ?Medication ?Instructions ?Recorded ?Confirmed ?Type atorvastatin 20 mg tablet 20 mg PO DAILY 03/22/24 03/22/24 History levothyroxine 75 mcg tablet 75 mcg PO DAILY 03/22/24 03/22/24 History (Synthroid) losartan 25 mg tablet 25 mg PO DAILY 03/22/24 03/22/24 History Allergies Allergy/AdvReac Type Severity Reaction Status Date / Time No Known Drug Allergies Allergy Verified 03/22/24 10:27 Exam Narrative Exam Narrative: Jose Morton MD personally performed the services described in this documentation, as scribed by Kiana Tam RN in my presence and it is both accurate and complete. Kiana Morton RN, am scribing for, and in the presence of, Dr. Jose Tomas and in the presence of the patient. Assessment and Plan Assessment and Plan (1) Pain due to varicose veins of both lower extremities: Plan The patient tolerated the procedure well without complication.? The patient verbalizes understanding and states they will comply.? Patient was given post-procedure instructions. Patient was discharged in good condition.? Scheduled to undergo follow-up evaluation on 04/20/24. Jose Morton MD personally performed the services described in this documentation, as scribed by Kiana Tam RN in my presence and it is both accurate and complete. IKiana RN, am scribing for, and in the presence of, Dr. Jose Tomas and in the presence of the patient. Procedures Procedure Instructions Procedures leg microfoam chemical ablation/Varithena: Risks and benefits of the procedure were discussed at length and informed written consent was obtained.? Time-out procedure was performed and the correct patient and procedure were confirmed.? Staff present during time-out: Kiana Tam RN and Jose Tomas MD.? Patient prepped and procedure performed in usual sterile fashion.? Patient was placed in Trendelenburg prior to Polidocanol/Varithena injections. Sclerosing Agent:?? 4cc 1% Polidocanol/Varithena Site Injected: left leg Number of Injections:? 6cc into 4mm vein left distal medial lower leg 2cc into 3mm vein left distal ankle 2cc into 3mm vein left mid medial lower leg 2cc into 3mm vein left mid medial thigh The patient tolerated the procedure well without complication.? Hemostasis was obtained and thigh-high compression stocking was applied with foam pads.? Instructed patient to wear stocking for at least 96 hours and sleep with it and only remove for showering.? The patient was instructed to? wear stocking for 2 weeks.? Patient verbalizes understanding and states they will comply.? Patient was given post-procedure instructions. Patient was discharged in good condition.? Scheduled to undergo limited venous ultrasound and? exam on 04/20/24. IJose MD personally performed the services described in this documentation, as scribed by Kiana Tam RN in my presence and it is both accurate and complete. IKiana RN, am scribing for, and in the presence of, Dr. Jose Tomas and in the presence of the patient.
--- NOTE | 2024-04-13 11:34 | P.DS_ITS ---
Discharge Plan Discharge Disposition: Home, Self-Care Outpatient Diagnostics: VC Facility EST LMTD (Routine) Timeframe: 2 Weeks Facility: [facility] - Location: Vein Center Ordered By: Jose Tomas VC EXT Venous LT Limited (Routine) Timeframe: 2 Weeks Facility: [facility] - Location: Vein Center Ordered By: Jose Tomas Follow Up Appointments: 04/20/24 Plan of Treatment: u/s follow up following varithena left leg 04/13/24 Patient Instructions: Endovenous Ablation (DC) Print Language: Citizen Of The [place] Discharge Date/Time: 04/13/24 14:27
--- NOTE | 2024-04-13 13:15 | VEIN_ITS ---
[address] [address] Patient Name: SHASHI SAAB MRN: [id number] date: 1960 Sex: M Assigned Patient Location: Current Patient Location: Accession/Order Number: [id number] Exam Date: 04/13/2024 13:28 Report Date: 04/13/2024 14:56 At the request of: DIPIKA MEDINA Procedure: VC INJ Foam Sclerosant [employer]US [employer] PROCEDURE: VC INJ Foam Sclerosant WUS [employer] COMPARISON: None. HISTORY: I83.813 - Varicose veins of bilateral lower extremities w... Pre-operative Diagnosis: CEAP class C4a venous insufficiency with pain, tenderness, edema and incompetent left saphenous and varicose vein(s), chronic venous insufficiency left leg secondary to venous incompetence Post-operative Diagnosis: CEAP class C4a venous insufficiency with pain, tenderness, edema and incompetent left saphenous and varicose vein(s), chronic venous insufficiency left leg secondary to venous incompetence Procedure Performed: 1. Ultrasound-guided microfoam chemical ablation with Varithenaregistered 2. Intraoperative ultrasound guidance Anesthesia: None Indications for Procedure: 63-year-old male who presents with a long history of lower extremity pain swelling and hemosiderin staining. The patient failed conservative medical therapy including medical compression stockings, exercise and analgesics. Prior procedures include intervenous laser ablation. Multiple incompetent varicosities of the left leg. Duplex scan showed reflux and enlarged diameters up to 4 mm. The patient underwent informed consent including management options where the complications of infection, bleeding, pain, and skin injury were discussed. Particular attention was spent discussing thrombus extension and deep vein thrombosis as well as the possibility of pulmonary embolus and treatment with oral or injectable blood thinners. Procedure: The patient walked to the procedure room. All applicable staff donned appropriate apparel. A procedure timeout was performed to confirm correct patient, correct extremity, correct procedure, and correct room set-up including presence of all applicable supplies, devices, and drugs. A duplex ultrasound, performed by myself confirmed the location and incompetence of branch saphenous varicosities and their course was marked on the skin together with the dilated tributaries. The extent of treatment of the vein and the associated varicosities was determined through ultrasound mapping. The skin was prepped and then punctured with a butterfly needle and advanced under ultrasound guidance. The Varithenaregistered canister was activated and the canister was primed and purged as required in the instructions for use. Varithenaregistered was drawn into a sterile syringe. The following injections were made: 6 cc injected into a 4 mm varicose vein left distal medial lower leg 2 cc injected into a 3 mm varicose vein left distal ankle 2 cc injected into a 3 mm varicose vein left mid medial lower leg 2 cc injected into a 3 mm varicose vein left mid medial thigh Varithenaregistered was slowly administered at 0.5-1.0 cc/second with close observation by ultrasound of its course in the vessels. Total volume utilized was: 12cc. Following administration of Varithenaregistered the leg was elevated and the patient was asked to repeatedly dorsiflex the ankle to limit flow of Varithenaregistered into perforating veins. Once appropriate spasm had been confirmed in the treated veins, the vascular catheter was removed from the leg and light pressure was applied over the puncture site for hemostasis. The common femoral and deep superficial veins were then evaluated for flow and compressibility prior to dressing placement. The lower extremity was kept elevated at 45 degrees above the horizontal and cording material was applied over the saphenous segments and tributaries to allow for eccentric compression over the target vessels including the targeted saphenous vein(s). A multilayer dressing was applied consisting of foam pads, coban and thigh-high 20-30 mm Hg compression elastic support hose were placed on the patient. The leg was lowered only after compression had been applied and the patient was immediately ambulatory. The patient ambulated 10 minutes under supervision and was without apparent concerns at time of release. Post-care instructions include advising patient to keep post-treatment bandages in place and dry for 48 hours, avoid extended periods of inactivity, avoid heavy exercise for one week, wear compression stockings on the treated leg continuously for two weeks, to walk daily for 10 minutes over the next month. The patient was instructed to take an anti-inflammatory medicine as needed and to follow up for color duplex scan of the Saphenous veins, the treated branch saphenous varicosities, the adjacent deep veins, and additional treatment within 7 days. PERSONNEL: Kiana Tam Electronically authenticated by: LYNNE CUETO Date: 04/13/2024 14:56
[2024-04-13 13:31] VITALS: BP 140/60; PULSE 67; O2SAT 99
== END 2024-04-13 14:27 | disposition home or self-care (01) ==
LOC: VC 13:14
PROVIDERS: PCP Radiology Diagnostic Radiology; Visit Provider Radiology Diagnostic Radiology
DX: I83.813 Varicose veins of bilateral lower extremities with pain (principal)
CPT/HCPCS: 36466

== ENCOUNTER 2024-04-20 12:58 | Outpatient (OUT) | payer MEDICARE, BC, SELFPAY ==
--- NOTE | 2024-04-20 12:59 | VEIN_ITS ---
Patient Name: SHASHI SAAB MR#: [id number] : 1960 Exam Date: 04/20/2024 Ordering Doctor: DR JOSE TOMAS M.D. RADIOLOGY REPORT PROCEDURE: [facility] EST LMTD [facility] - OFFICE VISIT FOLLOW UP COMPARISON: [facility], 04/04/2024. PROGRESS NOTES: The patient reports no significant problems following micro foam chemical ablation of left leg incompetent varicose veins. The patient has worn his compression stocking and tried exercise. Patient did not require oral analgesics. Physical exam demonstrates scattered thrombosed varicose veins. No significant varicose veins are observed. There are scattered reticular spider veins. No erythema or warmth to suggest cellulitis or thrombophlebitis. No Active ulceration Review of the ultrasound performed the same day demonstrates occlusive thrombus extending throughout the treated left leg varicose veins. No deep vein thrombus. The patient expressed a desire to proceed with treatment of incompetent right great saphenous vein. [facility] IM[facility]: 1. Successful ablation of the treated left leg incompetent varicose veins 2. Persistent incompetent right great saphenous vein. PLAN: Intravenous laser ablation right great saphenous vein Nurse notes, history and physical were reviewed and confirmed, see attached forms. The nurse was present throughout the physical exam and consultation Dictated by: Jose Tomas MD on 04/20/2024 at 14:09 Approved by: Jose Tomas MD on 04/20/2024 at 14:11
--- NOTE | 2024-04-20 12:59 | VEIN_ITS ---
Patient Name: SHASHI SAAB MR#: [id number] : 1960 Exam Date: 04/20/2024 Ordering Doctor: DR JOSE TOMAS M.D. RADIOLOGY REPORT PROCEDURE: VC EXT VENOUS LT LIMITED COMPARISON: VC EXT VENOUS LT LIMITED, 04/04/2024. INDICATIONS: I80.02 - Phlebitis and thrombophlebitis of superficial ve... TECHNIQUE: Lower extremity michelle scale and Duplex Doppler evaluation of the deep venous system from the inguinal ligament through the calf veins. FINDINGS: REGION: Left lower extremity. THROMBI: Negative for DVT. Varithena induced thrombus is visualized at mid/med calf, mid/med thigh, and dist/med calf. COMPRESSIBILITY: Non-compressible segments corresponding to thrombus FLOW: Areas of no flow corresponding to thrombus CONCLUSION: Post ablation occlusion of treated left leg varicose veins with no deep vein thrombus Dictated by: Jose Tomas MD on 04/20/2024 at 14:08 Approved by: Jose Tomas MD on 04/20/2024 at 14:09
--- OUTSIDE RECORDS SUMMARY | 2024-04-20 13:19 | XMS_ITS | CCD ---
Author Organization [facility] Care Team Providers Care Set Decorator Name Role Phone THAIS WRIGHT Unavailable Unavailable MIGUEL DIALLO Unavailable Unavailable THAIS WRIGHT Unavailable Unavailable Beitler, Ciara Primary Care Provider Elder Goodman Primary Care Provider Beitler III, PA-C, Ciara Mich Primary Care Provider Beitler III, PA-C, Ciara Mich Primary Care Provider AIDA BENÍTEZ Attending Unavailable BEITLER III, CIARA T. Primary Care Unavailab JESU Barrera Attending Unavailable BEITLER III, CIARA T. Primary Care Unavailab DR LYNNE Salas V Consulting Unavailable ROM, DR LYNNE Becerra Attending Unavailable DR LYNNE CUTEO V Admitting Unavailable Beitler III PA-C, Ciara [...] Harper Walker PA-C, Ciara Primary Care Provider [phone] CIARA WALKER Primary Care Unavailable CIARA WALKER Referring Unavailable CIARA WALKER Primary Care Unavailable CIARA WALKER Attending Unavailable CIARA WALKER Referring Unavailable Sarah Navarro Attending Unavailable CIARA WALKER Primary Care Unavailable Mino Pickens Primary Care Physician Unavailab Ilan Oconnor Unavailable Unavailab le Medications Current Medications Medication Drug Class(es) Dates Sig (Normalized) Sig (Original) [id number] 200 actuat albuterol 0.09 mg/actuat metered dose [...] status Current Tobacco User Invalid Interpretation Code [facility] CT Chest for screeningon Mild centrilobular emphysema [...] Report electronically signed by: Dr. Miguel An [facility] Miguel An MD - 03/14/2024 EXAMINATION: CT [...] the chest in 3 months is recommended. [facility] Work Phone: Radiology Study observation (narrative) [facility] Work Phone: CT Chest for screeningOrdere d By: Miguel An on 03-14-[address] [facility] [address] LUNG SCREENING (INITIAL/A NNUAL)on 03-14-2024 CT [...] Miguel An MD 03/14/24 Final result Normal [facility] Complete Blood Count with Au to Diffon 03-06-2024 Basophils (Bld) [#/Vol] 0.1 10*3/uL Normal 0.0-0.1 [facility] Comment on above: Performed By: #### C BCAD #### [place] [address] Ph. [phone] Basophils/100 WBC (Bld) 1 % Normal 0-1 [facility] Comment on above: Performed By: #### C BCAD #### [place] [address] Ph. [phone] Eosinophils (Bld) [#/Vol] 0.3 10*3/uL Normal 0.0-0.5 [facility] Comment on above: Performed By: #### C BCAD #### [place] [address] Ph. [phone] Eosinophils/100 WBC (Bld) 4 % Normal 0-5 [facility] Comment on above: Performed By: #### C BCAD #### [place] [id number] Ph. [phone] Erythrocyte distribution width (RBC) [Ratio] 12 % Normal 11.5-14.5 [facility] Comment on above: Performed By: #### C BCAD #### [place] [id number] Ph. [phone] Hematocrit (Bld) [Volume fraction] 40.2 % Low 42.0-52.0 [facility] Comment on above: Performed By: #### C BCAD #### [place] [id number] Ph. [phone] Hemoglobin (Bld) [Mass/Vol] 13.8 g/dL Normal 13.5-17.5 [facility] Comment on above: Performed By: #### C BCAD #### [place] [address] Ph. [phone] Lymphocytes (Bld) [#/Vol] 2.5 10*3/uL Normal 1.0-4.0 [facility] Comment on above: Performed By: #### C BCAD #### [place] [address] Ph. [phone] Lymphocytes/100 WBC (Bld) 38 % Normal 20-40 [facility] Comment on above: Performed By: #### C BCAD #### [place] [address] Ph. [phone] MCH (RBC) [Entitic mass] 32.2 pg Normal 27.0-35.0 [facility] Comment on above: Performed By: #### C BCAD #### [place] [id number] Ph. [phone] MCHC (RBC) [Mass/Vol] 34.3 g/dL Normal 32.0-36.0 [facility] Comment on above: Performed By: #### C BCAD #### [address] [address] Ph. [phone] MCV (RBC) [Entitic vol] 93.7 fL Normal 80.0-100.0 [facility] Comment on above: Performed By: #### C BCAD #### [address] [address] Ph. [phone] Monocytes (Bld) [#/Vol] 0.5 10*3/uL Normal 0.3-1.0 [facility] Comment on above: Performed By: #### C BCAD #### [place] [id number] Ph. [phone] Monocytes/100 WBC (Bld) 8 % Normal 1-15 [facility] Comment on above: Performed By: #### C BCAD #### [address] [address] Ph. [phone] Neutrophils (Bld) [#/Vol] 3.1 10*3/uL Normal 1.8-7.7 [facility] Comment on above: Performed By: #### C BCAD #### [place] [id number] Ph. [phone] Neutrophils/100 WBC (Bld) 48 % Low 50-70 [facility] Comment on above: Performed By: #### C BCAD #### [address] [address] Ph. [phone] Platelet mean volume (Bld) [Entitic vol] 10.1 fL Normal 9.4-12.3 [facility] Comment on above: Performed By: #### C BCAD #### [address] [address] Ph. [phone] Platelets (Bld) [#/Vol] 249 10*3/uL Normal 150-450 [facility] Comment on above: Performed By: #### C BCAD #### [address] [address] Ph. [phone] RBC (Bld) [#/Vol] 4.29 10*6/uL Low 4.70-6.[address] [facility] Comment on above: Performed By: #### C BCAD #### [place] [address] Ph. [phone] WBC (Bld) [#/Vol] 6.4 10*3/uL Normal 3.7-11.0 [facility] Comment on above: Performed By: #### C BCAD #### [place] [address] Ph. [phone] Comprehensive Metabolic Pane nain 03-06-2024 Albumin [Mass/Vol] 5.2 g/dL High 3.5-5.0 [facility] Comment on above: Performed By: #### F T4, CMP, [id number], LIPD, PSA #### [place] [address] Ph. [phone] ALP [Catalytic activity/Vol] 58 U/L Normal 38-126 [facility] Comment on above: Performed By: #### F T4, CMP, GUU875, LIPD, PSA #### [place] [id number] Ph. [phone] ALT [Catalytic activity/Vol] 35 U/L Normal 0-50 [facility] Comment on above: Performed By: #### F T4, CMP, [id number], LIPD, PSA #### [place] [id number] Ph. [phone] AST [Catalytic activity/Vol] 46 U/L Normal 17-59 [facility] Comment on above: Performed By: #### F T4, CMP, YYE117, LIPD, PSA #### [place] [address] Ph. [phone] Bilirubin [Mass/Vol] 0.5 mg/dL Normal 0.2-1.3 [facility] Comment on above: Performed By: #### F T4, CMP, ORP107, LIPD, PSA #### [place] [address] Ph. [phone] Calcium [Mass/Vol] 9.9 mg/dL Normal 8.4-10.2 [facility] Comment on above: Performed By: #### F T4, CMP, ITW721, LIPD, PSA #### [place] [address] Ph. [phone] Chloride [Moles/Vol] 89 mmol/L Low 98-107 [facility] Comment on above: Performed By: #### F T4, CMP, CAV296, LIPD, PSA #### [place] [address] Ph. [phone] CO2 [Moles/Vol] 34 mmol/L High 22-32 [facility] Comment on above: Performed By: #### F T4, CMP, RWY713, LIPD, PSA #### [place] [address] Ph. [phone] Creatinine [Mass/Vol] 0.62 mg/dL Low 0.66-1.25 [facility] Comment on above: Performed By: #### F T4, CMP, MHR961, LIPD, PSA #### [place] [address] Ph. [phone] GFR/1.73 sq M.predicted among non-blacks MDRD (S/P/Bld) [Vol rate/Area] 106 mL/min/{1.73_m2} Normal >60 [facility] Comment on above: Result Comment: GFR calculated using CKD-EPI (2020) formula.\X0D0A\Stage 1 Kidney damage (e.g., protein in the urine) with normal GFR >=90\X0D0A\Stage 2 Kidney damage with mild decrease in GFR 60-89\X0D0A\Stage 3a Moderate decrease in GFR 45-59\X0D0A\Stage 3b Moderate decrease in GFR 30-44\X0D0A\Stage 4 Severe reduction in GFR 15-29\X0D0A\Stage 5 Kidney failure <15 Performed By: #### F T4, CMP, EHP023, LIPD, PSA #### [place] [address] Ph. [phone] Glucose [Mass/Vol] 81 mg/dL Normal 65-100 [facility] Comment on above: Performed By: #### F T4, CMP, MYV793, LIPD, PSA #### [place] [address] Ph. [phone] Potassium [Moles/Vol] 4.4 mmol/L Normal 3.6-5.0 [facility] Comment on above: Performed By: #### F T4, CMP, LPE099, LIPD, PSA #### [place] [address] Ph. [phone] Protein [Mass/Vol] 7.9 g/dL Normal 6.3-8.2 [facility] Comment on above: Performed By: #### F T4, CMP, QUJ695, LIPD, PSA #### [place] [id number] Ph. [phone] Sodium [Moles/Vol] 132 mmol/L Low 135-145 [facility] Comment on above: Performed By: #### F T4, CMP, PME675, LIPD, PSA #### [place] [id number] Ph. [phone] Urea nitrogen [Mass/Vol] 9 mg/dL Normal 9-20 [facility] Comment on above: Performed By: #### F T4, CMP, NUI302, LIPD, PSA #### [place] [address] Ph. [phone] Free T4on 03-06-2024 Free T4 [Mass/Vol] 1.33 ng/dL Normal 0.78-2.19 [facility] Comment on above: Performed By: #### F T4, CMP, ISW162, LIPD, PSA #### [place] [id number] Ph. [phone] Lipid Panelon 03-06-2024 Cholesterol [Mass/Vol] 180 mg/dL Normal 100-200 [facility] Comment on above: Result Comment: <200 mg/dL is recommended cholesterol level. Performed By: #### F T4, CMP, OLS311, LIPD, PSA #### [place] [address] Ph. [phone] Cholesterol in HDL [Mass/Vol] mg/dL Normal >40 [facility] Comment on above: Performed By: #### F T4, CMP, OXQ924, LIPD, PSA #### [place] [address] Ph. [phone] Cholesterol in LDL [Mass/Vol] 51 mg/dL Normal 20-100 [facility] Comment on above: Performed By: #### F T4, CMP, LAH309, LIPD, PSA #### [address] [address] Ph. [phone] Cholesterol.total/Ch olesterol in HDL [Mass ratio] 2 {ratio} Normal 1-5 [facility] Comment on above: Performed By: #### F T4, CMP, GLN235, LIPD, PSA #### [place] [id number] Ph. [phone] Triglyceride [Mass/Vol] 97 mg/dL Normal 10-150 [facility] Comment on above: Performed By: #### F T4, CMP, LVH061, LIPD, PSA #### [address] [address] Ph. [phone] TSH Reflex FT4on 03-06-2024 TSH 5.090 mIU/mL High 0.470-4.680 [facility] Comment on above: Performed By: #### F T4, CMP, LVD850, LIPD, PSA #### [place] [address] [address] [phone] Otolaryngology Office/Clinic Noteon 03-08-2023 Otolaryngology Office/Clinic Note [...] [place] [address]-25, 70[address], and [address] to discuss with his insurance company to see what his [id number] expense would be. We did discuss the [...] surgery without patient-specific risk Follow-up level 4 [id number] added for otic microscopy use Physician Comments [...] Electronically s (more content not included)... Normal [facility] Otolaryngology Office/Clinic Noteon 02-25-2023 Otolaryngology Office/Clinic Note [...] today, i (more content not included)... Normal [facility] Otolaryngology Office/Clinic Noteon 01-05-2023 Otolaryngology Office/Clinic Note [...] Carolyn Wells PA-C 01/10/23 23:30 EDT Normal [facility] Otolaryngology Office/Clinic Noteon 12-15-2022 Otolaryngology Office/Clinic Note [...] mL, 0 Refill(s), 12/25/22 8:54:00 EDT, Pharmacy: [id number] 2. Dysfunction of both eustachian tubes [...] Tobacco Former (more content not included)... Normal [facility] Audiology Office/Clinic Note on 03-31-2022 Audiology Office/Clinic Note History Patient was seen today for a hearing test and aided testing. He was referred by his PCP - ELLE Walker for testing required for his [facility] certification. Patient is a hearing aid user. [...] by Heather Tariq 03/31/22 16:59 EST Normal [facility] SURGICALon 02-04-2021 SURGICAL [place] [facility] SHASHI PEREZ [id number] Assoc. Page 1 of [address] [place] [address] PROC: 02/04/2021 [facility] RECV: 02/06/2021 [address] [facility] RPTD: 02/07/2021 [place] [address] LOC: [facility] ACCT: [id number] SEX: M : 1960 AGE: 60 Y [...] ns. [id number] Microscopic Examination: Microscopic examination performed. [id number] LATANYA STEPHENSON M.D., F.C.A.P NVML/ [facility] Printed on: 02/07/[address] [place] [id number] Original print date: 02/07/2021 Normal [facility] CT LUNG SCREENINGon 06-11-19 1. No acute cardiopulmonary process or convincing evidence of new pulmonary malignancy. 2. Sequela of old healed granulomatous disease again identified. L-RAD 1 No findings or minor findings; benign nodules. RECOMMENDATIONS: Annual LDCT screening for 2 years and suggest annual LDCT until patient no longer eligible for definitive treatment. [place], [place] EXAMINATION: CT LUNG SCREENING (INITIAL/ANNUAL) 06/11/2020 [...] Report electronically signed by: Dr. Zana Galarza [place], [place] Karen Goncalves Radiant Results From [facility] [...] patient no longer eligible for definitive treatment. [place] ALT, [facility] 0 ALT [Catalytic activity/Vol] 51 U/L High 0 - 50 U/L [place] AST, [facility] 0 AST [Catalytic activity/Vol] 52 U/L 17 - 59 U/L [place] Basic Metabolic Panel, [facility] 03-21-2020 Calcium [Mass/Vol] 9.1 mg/dL 8.4 - 10. 2 mg/dL [place] Chloride [Moles/Vol] 99 mmol/L [place], [place] CO2 [Moles/Vol] 31 mmol/L [place], [place] Creatinine [Mass/Vol] 0.66 mg/dL 0.66 - 1.25 mg/dL [place] GFR/1.73 sq M predicted among non-blacks MDRD (S/P/Bld) [Vol rate/Area] 104 mL/min/{1.73_m2} >60 mL/min/1.73m2 [place] Comment on above: Stage 1 Kidney damage (e.g., protein in the urine) with normal GFR >=90 Stage 2 Kidney damage with mild decrease in GFR 60-89 Stage 3a Moderate decrease in GFR 45-59 Stage 3b Moderate decrease in GFR 30-44 Stage 4 Severe reduction in GFR 15-29 Stage 5 Kidney failure <15 Glucose [Mass/Vol] 90 mg/dL 65 - 100 mg/dL [place] Potassium [Moles/Vol] 4.3 mmol/L [place] Sodium [Moles/Vol] 141 mmol/L [place] Urea nitrogen [Mass/Vol] 13 mg/dL 9 - 20 mg/dL [place] CBC, [facility] 0 Erythrocyte distribution width (RBC) [Ratio] 11.9 % 11.5 - 14.5 % [place] Hematocrit (Bld) [Volume fraction] 40.4 % Low 42 - 52 % [place] Hemoglobin (Bld) [Mass/Vol] 13.6 g/dL 13.5 - 17.5 g/dL [place] Interpretation and review of laboratory results Abnormal [place] MCH (RBC) [Entitic mass] 32.1 pg 27 - 35 pg [place] MCHC (RBC) [Mass/Vol] 33.7 g/dL 32 - 36 g/dL [place] MCV (RBC) [Entitic vol] 95 fL 80 - 100 fL [place] Platelet mean volume (Bld) [Entitic vol] 9.8 fL 9.4 - 12.3 fL [place] Platelets (Bld) [#/Vol] 169 10*3/uL [place] RBC (Bld) [#/Vol] 4.24 10*6/uL Low [place] WBC (Bld) [#/Vol] 4.3 10*3/uL [place] Ordered by [facility] [place] Free T4, [facility] 03-21 Free T4 [Mass/Vol] 1.01 ng/dL 0.78 - 2. 19 ng/dL [place] [facility] by [facility] [place] Hemoglobin A1c, [facility] n 03-21-2020 Glucose [Mass/Vol] 76.5 mg/dL [place] Comment on above: Estimated Average Glucose is a caluculated value from Hemoglobin A1C and is veterans employment representative of the average blood glucose level in the last 2-3 month period. HbA1c (Bld) [Mass fraction] 4.9 % 4 - 6 % [place] Comment on above: [place] [employer] guidelines indicate that patients with HgbA1C in the range of 5.7-6.4% are at increased risk for development of diabetes, and intervention by lifestyle modification may be beneficial. HgbA1C greater than or equal to 6.5% is considered diagnostic of diabetes. Ordered by [facility] [place] Lipid Panel, [facility] 1 05-21-2019 Cholesterol [Mass/Vol] 175 mg/dL 100 - 200 mg/dL [place] Comment on above: <200 mg/dL is recommended cholesterol level. Cholesterol in HDL [Mass/Vol] 83 mg/dL >40 [place] Cholesterol in LDL [Mass/Vol] 57 mg/dL 20 - 100 mg/dL [place] CHOLESTEROL/HDL RELATIVE RISK 2 [place] Triglyceride [Mass/Vol] 174 mg/dL High 10 - 150 mg/dL [place] Otheron 03-21-2020 Ordered by [place], [place] Interpretation and review of laboratory results Abnormal [place] Ordered by [place] PSA Screen, [facility] PSA, TOTAL 0.96 ng/mL 0 - 4 ng/mL [place] Comment on above: [facility] UTILIZES [employer] PSA METHODOLOGY. DIFFERENT TEST METHODS CANNOT BE USED INTERCHANGEABLY. PSA RESULTS IN A GIVEN PATIENT SAMPLE DETERMINED WITH DIFFERENT TESTS AND FROM DIFFERENT MANUFACTURERS CAN VARY DUE TO DIFFERENCES IN TEST METHODS AND REAGENTS. TSH, [facility] 0 TSH Qn 4.420 m[IU]/L [place], [place] Laboratory - Chemistry and C hemistry - challengeon 01-19-2013 25-hydroxyvitamin D3 [Mass/Vol] 30.7 ng/mL Invalid Interpretation Code 30.0-100.0 [facility] CK [Catalytic activity/Vol] 271.0 U/L Invalid Interpretation Code 24-194 [facility] CRP [Mass/Vol] 4.9 mg/L Invalid Interpretation Code 0.0-4.9 [facility] TSH Qn 1.70 m[IU]/L Invalid Interpretation Code 0.50-4.00 [facility] - Hematology and Cell countson 01-19-2013 ESR (Bld) [Velocity] 10 mm/h Invalid Interpretation Code 0-20 [facility] Vital Signs Date Time Vital Sign Value Performing Clinician Facility 03-28-2024 14:55-0500 SaO2% (BldA) [Mass fraction] 99 % [facility] 03-28-2024 14:11-0500 Body height 177.8 cm [facility] 03-28-2024 14:11-0500 Body mass index (BMI) [Ratio] 28.98 kg/m2 [facility] 03-28-2024 14:11-0500 Body surface area Derived from formula 2.13 m2 [facility] 03-28-2024 14:11-0500 Body temperature 98.2 [degF] [facility] [employer] 03-28-2024 14:11-0500 Body weight 91.63 kg [facility] 03-28-2024 14:11-0500 Diastolic blood pressure 70 mm[Hg] [facility] 03-28-2024 14:11-0500 Heart rate 64 /min [employer] [facility] 03-28-2024 14:11-0500 Respiratory rate 16 /min Mino Whaley y [facility] 03-28-2024 14:11-0500 Systolic blood pressure 134 mm[Hg] Mino Díaz [place] [employer] 03-13-2024 08:14-0500 SaO2% (BldA) [Mass fraction] 99 % Sarah Navarro MD Work Phone: [facility] 03-13-2024 08:05-0500 Body height 175.3 cm Sarah Navarro MD Work Phone: [facility] 03-13-2024 08:05-0500 Body mass index (BMI) [Ratio] 28.35 kg/m2 Sarah Navarro MD Work Phone: [facility] 03-13-2024 08:05-0500 Body temperature 98.71 [degF] Sarah Navarro MD Work Phone: [facility] 03-13-2024 08:05-0500 Body weight 87.09 kg Sarah Navarro MD Work Phone: [facility] 03-13-2024 08:05-0500 Diastolic blood pressure 72 mm[Hg] Sarah Navarro MD Work Phone: [facility] 03-13-2024 08:05-0500 Heart rate 69 /min Sarah Navarro MD Work Phone: [facility] 03-13-2024 08:05-0500 Respiratory rate 16 /min Sarah Navarro MD Work Phone: [facility] 03-13-2024 08:05-0500 Systolic blood pressure 167 mm[Hg] Sarah Navarro MD Work Phone: [facility] 10-09-2021 09:10-0400 Body weight 83.69 kg Jesu Bethea II, MD Work Phone: [facility] 03-26-2021 10:39-0500 Body weight 88.56 kg Aida Benítez PA-C Work Phone: [facility] 03-26-2021 10:39-0500 Diastolic blood pressure 79 mm[Hg] Aida Bamigy PA-C Work Phone: [facility] 03-26-2021 10:39-0500 Heart rate 68 /min Aida Bamigy PA-C Work Phone: [facility] 03-26-2021 10:39-0500 SaO2% (BldA) [Mass fraction] 98 % Aida Conigy PA-C Work Phone: [facility] 03-26-2021 10:39-0500 Systolic blood pressure 135 mm[Hg] Aida Bamigy PA-C Work Phone: [facility] 01-19-2013 13:09-0400 Body height 181.61 cm [facility] Category 01-19-2013 13:09-0400 Body mass index (BMI) [Ratio] 38.51 kg/m2 [facility] 01-19-2013 13:09-0400 Body surface area Derived from formula 2.53 m2 [facility] 01-19-2013 13:09-0400 Body weight 127.01 kg [facility] 01-19-2013 13:09-0400 Diastolic blood pressure 86 mm[Hg] [facility] 01-19-2013 13:09-0400 Heart rate 84 /min [facility] 01-19-2013 13:09-0400 Systolic blood pressure 134 mm[Hg] Tweet Category Encounters Encounter Date Encounter Type Care Provider Facility Start: 03-28-2024 Office outpatient ne w 60 minutes Mino Pickens Other [facility] Office Start: 03-14-2024 End: 03-16-2024 Subsequent hospital visit by physician Ciara Walker PA-C Work Phone: [facility] CT Scan Comment on above: Screening for lung c ancer; History of tobacco use Start: 03-14-2024 ambulatory [facility] Start: 03-13-2024 End: 03-13-2024 Emergency department patient visit Sarah Navarro MD Work Phone: [facility] Emergency Department Comment on above: 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) Start: 03-06-2024 [facility] Start: 03-17-2023 ambulatory Ciara Theodor e Beitler III PA-C Facility:[facility] Start: 03-08-2023 End: 03-09-2023 ambulatory Ciara Mich Beitler III PA-C Facility[facility] Start: 03-02-2023 ambulatory Ciara Theodor e Beitler III PA-C Facility:[facility] Start: 02-25-2023 ambulatory Spencer Sorensen caro PA-C Facility:[facility] Start: 02-25-2023 End: 02-26-2023 ambulatory Ciara Mich Beitler III PA-C Facility[facility] Start: 01-05-2023 End: 01-06-2023 ambulatory Ciara Mich Beitler III PA-C Facility[facility] Start: 12-15-2022 End: 12-16-2022 ambulatory Ciara Mich Beitler III PA-C Facility:[facility] Start: 03-31-2022 End: 04-01-2022 ambulatory Ciara Mich Beitler III PA-C Facility[facility] Start: 10-09-2021 End: 10-09-2021 Orders Only Thais Kim [facility] Comment on above: Rectus diastasis of lower abdomen (Primary Dx) Start: 10-09-2021 End: 10-09-2021 Office outpatient visit 15 minutes Jesu Bethea MD Work Phone: [facility] Comment on above: Redundant skin of ab domen (Primary Dx); Recent weight loss; Intertrigo; Nicotine vapor product user Start: 04-24-2021 End: 12-14-[address] LYNNE CUETO Facility:[facility] Start: 03-26-2021 End: 03-26-2021 ambulatory AIDA BENÍTEZ [facility] Start: 03-26-2021 End: 03-26-2021 Office consultation new/estab patient 30 min Aida Benítez PA-C Work Phone: [facility] Comment on above: Redundant skin of ab weinberg (Primary Dx); Recent weight loss Start: 07-11-2020 End: 07-11-2020 Orders Only Barby Caba Matthew Work Phone: [facility] Start: 06-11-2020 End: 06-13-2020 Subsequent hospital visit by physician [facility] Ct/Pet Room [facility] CT Scan Comment on above: Ex-smoker Start: 05-28-2020 End: 05-28-2020 Subsequent hospital visit by physician Opal Don Work Phone: [facility] Audiology Start: 03-21-2020 End: 03-21-2020 Subsequent hospital visit by physician Ciara Walker [facility] Laboratory Start: 11-20-2014 End: 11-20-2014 Patient encounter procedure THAIS WRIGHT [facility] Start: 01-19-2013 Office Services Ilan rajan Other [facility] Office Start: 11-28-2012 End: 11-29-2012 Patient encounter procedure MIUGEL DIALLO [facility] Procedures Date Procedure Procedure Detail Performing Clinician Start: 03-28-2024 Ct thorax w/contrast material Mino Pickens Start: 03-28-2024 Ct thorax w/o & w/co ntrast material Mino Pickens Start: 03-28-2024 Ct thorax w/o contra st material Mino Pickens Start: 03-14-2024 CT Chest for screening Ciara Walker PA-C Work Phone: Start: 03-06-2024 PSA screening CIARA MCGHEE Comment on above: Result Comment: [facility] UTILIZES [employer] PSA METHODOLOGY. DIFFERENT TEST METHODS CANNOT BE USED INTERCHANGEABLY. PSA RESULTS IN A GIVEN PATIENT SAMPLE DETERMINED WITH DIFFERENT TESTS AND FROM DIFFERENT MANUFACTURERS CAN VARY DUE TO DIFFERENCES IN TEST METHODS AND REAGENTS. Performed By: #### F T4, CMP, [id number], LIPD, PSA #### [place] [address] [place] [address] Ph. [phone] Start: 02-04-2021 Colonoscopy Sarah willard MD Work [...] Screening for malign ant neoplasm of colon [facility] Start: 03-12-2025 End: 03-12-2025 Patient encounter procedure 03/12/2025 10:30 AM EST Office Visit [facility] at [address] [id number] Ciara Walker PA-C [address] [place] [phone] [facility] at [facility] Comment on above: annual Start: 03-06-2025 Depression Screen Depression Screen [facility] Start: 03-06-2025 Lipid panel Lipids [facility] Start: 03-28-[address] chest [facility] Start: 03-14-2024 End: 03-14-2024 Patient encounter procedure 03/14/2024 8:00 AM EST Appointment [facility] CT Scan [address] [place], [place] [id number] Ciara Walker PA-C [address] [place] [address] Scan Comment on above: Routine Start: 01-09-2024 COVID-19 Vaccine ( season) COVID-19 Vaccine ( season) [facility] Start: 08-17-2023 Abdominal aortic ane urysm screening AAA screen [facility] Start: 08-17-2023 Pneumococcal 65+ yea rs Vaccine (1 of 1 - PCV) Pneumococcal 65+ years Vaccine (1 of 1 - PCV) [facility] Start: 08-12-2023 Annual Wellness Visi t (Medicare) Annual Wellness Visit (Medicare) [facility] Start: 09-01-2021 End: 09-01-2021 Patient encounter procedure 09/01/2021 Office Visit Plastic Surgery Jesu Bethea II, MD [facility] [place] [address] [facility] Start: 06-21-2021 COVID-19 Vaccine (4 - Booster for Pfizer series) COVID-19 Vaccine (4 - Booster for Pfizer series) [facility] Start: 02-25-2021 End: 02-25-2021 Office Visit 02/25/2021 Office Visit Primary Care Ciara Walker PA-C [address] [facility] [place], [place] [id number] [facility] Start: 01-08-2021 Influenza vaccination Sequenti al Influenza Vaccine (#1) [facility] Start: 01-01-2021 End: 01-01-2021 Appointment 01/01/2021 Appointment Audiology Opal Don, AuD [address] [facility], [place] [id number] [facility] Audiology Start: 05-28-2020 End: 05-28-2020 Appointment 05/28/2020 Appointment Audiology Opal Don, AuD [address] [place], [place] [id number] [facility] Audiology Start: 01-09-2020 Influenza vaccination Flu vaccine (# 1) [place], [place] Start: 01-09-2020 Influenza vaccinatio n given Sequential Influenza Vaccine (#1) [facility] Start: 2018 Respiratory Syncytia l Virus (RSV) or age 60 yrs+ (1 - 1-dose 60+ series) Respiratory Syncytial Virus (RSV) or age 60 yrs+ (1 - 1-dose 60+ series) [facility] Start: 2008 Administration of he rpes zoster vaccine Zoster Vaccines (1 of 2) [facility] Start: 2008 Screening for malign ant neoplasm of colon [facility] Start: 2008 Shingles Vaccine (1 of 2) Milner gles Vaccine (1 of 2) [place] Start: 08-17-2003 Screening for malign ant neoplasm of colon [facility] Start: 1977 DTaP/Tdap/Td vaccine (1 - Tdap) DTaP/Tdap/Td vaccine (1 - Tdap) [facility] Start: 1976 Hepatitis C antibody , confirmatory test Hepatitis C Screening [facility] Start: 1976 Hepatitis C screening [facility] Start: 1974 COVID-19 Vaccine (1 of 2) COVI D-19 Vaccine (1 of 2) [facility] Start: 1973 [facility] Start: 1970 Adolescent depressio n screening assessment Depression Screening (PHQ9) [facility] Start: 1970 Depression screening using PHQ-9 (Patient Health Questionnaire 9) score Depression Screening (PHQ-2/9) [facility] Start: 1968 Lipid panel Lipid screen [place], [place] Start: 1961 History and physical examination, annual for health maintenance Wellness Visit [facility] Start: 1958 Creatinine measurement Creatinine mo nitoring [place], [place] Start: 1958 Hepatitis C screening Hepatitis C sc reen [place], [place] Start: 1958 Potassium monitoring Potassium monit oring [place], [place] Start: 1958 Prostate specific an tigen measurement PSA Level [facility] Start: 1958 Screening for malign ant neoplasm of lung Low-dose CT Lung Cancer Screen [facility] Start: 1958 Tetanus vaccination Tetanus: Every 1 0yrs [facility] Start: 1958 TSH Qn TSH testing [place], [place] End: 10-09-[address] CT Abdomen Without Contrast Imaging Routine Rectus diastasis of lower abdomen 1 Occurrences starting 10/09/2021 until 10/09/2022 [facility] Work Phone: Comment on above: 1 Occurrences starti ng 10/09/2021 until 10/09/2022 Immunizations Immunization Date Immunization Notes Care Provider Kenji decker 03-06-2024 influenza, high dose seasonal, preservative-free Sarah Navarro MD Work Phone: [facility] Work Phone: 04-27-2022 zoster vaccine recombinant Sarah Navarro MD Work Phone: [facility] 04-21-2022 influenza, injectabl e, quadrivalent, preservative free Sarah Navarro MD Work Phone: [facility] Work Phone: 02-23-2022 zoster vaccine recombinant Sarah Navarro MD Work Phone: [facility] 04-22-2021 Influenza, injectabl e, Madin Marcia Canine Kidney, preservative free, quadrivalent Sarah Navarro MD Work Phone: [facility] 03-21-2020 influenza, injectabl e, quadrivalent, preservative free Sarah Navarro MD Work Phone: [facility] Payers Date Payer Category Payer Medicare [id number] 2023 Unknown [id number] 2017 Unknown MMO MED [employer] S UPERMED PPO [id number] 2017-Present [id number] 2016 Unknown [id number] 2016 Unknown [id number] [id number] 2014 Unknown [id number] 1959 Self-pay 1958 Unknown [id number] 1958 Unknown [id number] [id number] 1958 Unknown [id number] [id number] 1958 Unknown [id number] 2.16.840.1.879782.3.579.2.903 1958 Unknown [id number] [id number] 1958 Unknown [id number] 2.16.840.1.468050.3.579.2.196 1958 Unknown [id number] 2.16.840.1.893122.3.579.2.196 1958 Unknown [id number] 2.16.840.1.810004.3.579.2.196 1958 Unknown [id number] 2.16.840.1.091379.3.579.2.196 1958 Unknown [id number] 2.16.840.1.599119.3.579.2.196 1958 Unknown [id number] 2.16.840.1.903538.3.579.2.196 1958 Unknown [id number] 2.16.840.1.068309.3.579.2.196 1958 Unknown [id number] 2.16.840.1.272655.3.579.2.196 1958 Unknown [id number] 2.16.840.1.683008.3.579.2.754 1958 Unknown [id number] [id number] 1958 Unknown [id number] [id number] Social History Date Type Detail Facility Start: 02-20-2020 End: 02-23-2022 Tobacco smoking status NHIS Former smoker [place], [place] End: 03-10-2011 History of tobacco use Cigarette Smoker [place] History of tobacco use Cigar Smoker [place] Start: 02-20-2020 End: 02-23-2022 Tobacco use and exposure Never used [place], [place] Start: 02-20-2020 End: 03-13-2024 Alcohol intake Current drinker of alcohol (finding) [place] Start: 02-20-2020 History SDOH Alcohol Frequency 5 [place] Start: 02-20-2020 History SDOH Alcohol Std Drinks 1 [place], [place] Start: 1960 Sex Assigned At Not on file [place], [place] Start: 1960 Sex Assigned At Male [place] End: 03-10-2011 History of tobacco use Current smoker [facility] Start: 03-15-2018 End: 03-13-2024 Cigarettes smoked current (pack per day) - Reported 3 [facility] Start: 09-29-2021 End: 10-09-2021 Exposure to SARS-CoV-2 (event) Not sure [facility] Start: 02-20-2020 End: 03-13-2024 Alcohol Use Disorder Identification Test - Consumption [AUDIT-C] [facility] How often to you hav e a drink containing alcohol? 4 or more times a week [facility] How many standard dr inks containing alcohol do you have on a typical day? 1 or 2 [facility] Work Phone: Frequency of Binge Drinking Not on file [facility] Work Phone: (I/We) worried mike ivan (my/our) food would run out before (I/we) got money to buy more. Never true [facility] Work Phone: At any time in the p ast 12 months, were you homeless or living in nursing home [including now]? No [facility] Work Phone: Start: 03-13-2024 Alcohol Comment couple drinks/day [facility] Work Phone: Start: 06-10-2020 Gender identity Identifies as male gender (finding) [facility] Work Phone: Start: 06-10-2020 Sexual orientation Heterosexual (finding) [facility] Work Phone: Start: *Tobacco [facility] Start: Denies substance abuse [facility] Start: Alcohol [facility] Start: Caffeine [facility] Hospital Discharge instructions 03-13-2024 Discharge InstructionsAttachments Note Date & Type Note Facility 03-13-2024 Hospital Discharg e instructions Sarah Navarro MD - 03/13/2024 8:53 AM EST Continue to clean wound and bandage for the next 48 hours as discussed in the ER today The following attachments cannot be sent through Care Everywhere.Compression Stockings: General Info ([place])documented in this encounter [facility] Work Phone: History of Present illness Narrative [...] Bethea II, MD documented in this encounter [facility] History of Present illness Narrative 03-26-2021 [...] Aida Benítez PA-C documented in this encounter [facility] Evaluation note Note Date & Type Note Facility Evaluation note Diagnosis Redundant skin of abdomen- Primary Recent weight loss documented in this encounter [facility] Evaluation note Note Date & Type Note Facility Evaluation note Diagnosis Rectus diastasis of lower abdomen- Primary documented in this encounter [facility] Evaluation note Note Date & Type Note Facility Evaluation note Diagnosis Redundant skin of abdomen- Primary Recent weight loss [facility] Other specified erythematous condition Nicotine vapor product user documented in this encounter [facility] Evaluation note Note Date & Type Note Facility Evaluation note Diagnosis Bleeding from varicose vein- Primary Varicose veins of lower extremities with other complications documented in this encounter [facility] Work Phone: Evaluation note Note Date & Type Note Facility Evaluation note Diagnosis Screening for lung cancer History of tobacco use Personal history of tobacco use, presenting hazards to health documented in this encounter [facility] Work Phone: Summary Purpose Family History No Family History Records FoundNo Family History Records FoundNo Family History Records FoundNo Family History Records FoundNo Family History Records FoundNo Family History Records FoundNo Family History Records Found Advance Directives Documents on File Type Date Recorded 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 He reported the left hearing aid has been having some intermittent feedback. The patient noted he needs domes, wax guards, and a new cleaning brush. Audiology Appointment Note: Patient was fit with: Phonak Audeo M90-R Right SN: [id number] Left SN: [id number] Dome size: small vented for right and medium open for left Support Service Tech length: 2M for the right and 2S for the left Phonak Warranty expires: 08/04/2021 Otoscopy revealed minimal cerumen accumulation bilaterally. Tympanic membranes were visualized and appropriate landmarks were present bilaterally. Cleaned and checked both hearing aids. Initial listening check revealed the right hearing aid was not amplifying due to broken geoscience technician. Replaced the patient's right geoscience technician (2M) under warranty. The left hearing aid [...] datalogging could not be reviewed. [facility]eran feedback manager assisted living for both hearing aids. Dispensed 4 sets [...] CT LUNG SCREENING Ciara Walker PA-C [address] [place] [address] Specialty Diagnoses / Procedures Referred By Brody padgett Referred To Contact Radiology Diagnoses Rectus diastasis of lower abdomen Procedures CT Abdomen Without Contrast Jesu Bethea II, MD [facility] [place] [address] Referral ID Status Reason Start Date Expiration Date V isits Requested Visits Authorized [id number] New Request 10/09/2021 10/09/2022 1 1 Specialty Diagnoses / Procedures Referred By Brody padgett Referred To Contact Radiology Diagnoses Screening for lung cancer History of tobacco use Procedures CT LUNG SCREENING Ciara Walker PA-C [address] [place] [address] Referral ID Status Reason Start Date Expiration Date Visits Re quested Visits Authorized [id number] Closed 03/10/2024 03/10/2025 1 1 Assessments Diagnosis Ex-smoker Personal history of tobacco use, presenting hazards to health Additional Source Comments (unrecognized sect ion and content) No Status Records FoundNo Status Records FoundNo Status Records FoundNo Status Records FoundNo Status Records FoundNo Status Records FoundNo Status Records Found INFORMATION SOURCE (unrecogn ized section and content) DATE CREATED AUTHOR 04/17/[address] [facility] [facility] DATE CREATED AUTHOR AUTHOR'S ORGANIZ ATION 04/17/2018 [facility] DATE CREATED AUTHOR AUTHOR'S ORGANIZ ATION 02/08/2021 [facility] DATE CREATED AUTHOR AUTHOR'S ORGANIZ ATION 10/09/2021 [facility] DATE CREATED AUTHOR AUTHOR'S ORGANIZ ATION 12/14/[address] [facility] DATE CREATED AUTHOR AUTHOR'S ORGANIZ ATION 03/15/2023 [facility] DATE CREATED AUTHOR AUTHOR'S ORGANIZ ATION 03/15/2024 [facility] Reason for Visit (unrecogniz ed section and content) Status Reason Specialty Diagnoses / Procedures Referre d By Contact Referred To Contact Closed Radiology Diagnoses Ex-smoker Procedures CT LUNG SCREENING Ciara Walker PA-C [address] [place] [address] Reason Comments Advice Only Skin removal Specialty Diagnoses / Procedures Referred By Brody padgett Referred To Contact Radiology Diagnoses Screening for lung cancer History of tobacco use Procedures CT LUNG SCREENING Ciara Walker PA-C [address] [place] [address] Referral ID Status Reason Start Date Expiration Date Visits Re quested Visits Authorized [id number] Closed 03/10/2024 03/10/2025 1 1 Care Teams (unrecognized sec tion and content) Set Decorator Relationship Specialty Start Date End Date Ciara Walker III, PA-C [address] [place] [address] PCP - General Physician Press Technician 03/21/21 Set Decorator Relationship Specialty Start Date End Date Ciara Walker III, PA-C [address] [place] [address] PCP - General Physician Press Technician 03/21/21 Set Decorator Relationship Specialty Start Date End Date Ciara Walker III, PA-C [address] [place] [address] PCP - General Physician Press Technician 03/21/21 Set Decorator Relationship Specialty Start Date End Date Ciara Walker PA-C PCP - General Family Medicine 02/01/20 Set Decorator Relationship Specialty Start Date End Date Ciara [...] BE BASED ON THE PRIMARY CLINICAL RECORDS. [facility]. provides no warranty or guarantee of the accuracy or completeness of information in this document.
--- NOTE | 2024-04-20 13:31 | VEINCLINIC_ITS ---
Varicose Veins Patient in this day for follow up ultrasound post Varithena/microfoam chemical ablation left leg. Jose Morton MD personally performed the services described in this documentation, as scribed by Myrtle Orellana RVT, RDMS in my presence and it is both accurate and complete. Myrtle Morton RVT, RDMS, am scribing for, and in the presence of, Dr. Jose Tomas and in the presence of the patient. thigh: bilateral (symptomsl left leg > right leg), knee: bilateral, calf: bilateral, ankle: bilateral and cordova: bilateral cramping 5 years Worsened in recent months: Yes standing elevating extremities, compression stockings and exercise Reports muscle spasms of leg, edema and leg edema History of lower extremity trauma: No Superficial thrombophlebitis: No Family history of varicose veins: no Has patient had previous lower extremity venous surgery: No Patient has previously received the following treatment(s) for lower extremity varicose veins: Reports none Does patient have a history of : not applicable Has patient had lower extremity venous scan with relux testing: No Support hose used: Yes Problems walking or doing physical activity: Yes How does it affect you: muscle spasms Do you walk much: Yes Do you stand much: Yes Review of Systems ROS Narrative Jose Morton MD personally performed the services described in this documentation, as scribed by Myrtle Orellana RVT, RDMS in my presence and it is both accurate and complete. I, Myrtle Orellana RVT, RDMS, am scribing for, and in the presence of, Dr. Jose Tomas and in the presence of the patient. Status of ROS 10 or more systems reviewed and unremark able except as noted in history and below Cardiovascular Reports: edema Integumentary/Breast Reports: changes in skin color Hematologic/Lymphatic Reports: easy bleeding PFSH [facility] Medical History (Updated 03/31/24 @ 10:16 by Errol Trujillo) Superficial thrombophlebitis of left leg ?I80.02 - Phlebitis and thrombophlebitis of superficial vessels of left lower extremity (ICD-10) Rotator cuff arthropathy ?M12.819 - Other specific arthropathies, not elsewhere classified, unspecified shoulder (ICD-10) Lung nodule ?R91.1 - Solitary pulmonary nodule (ICD-10) Hypertension ?I10 - Essential (primary) hypertension (ICD-10) Pain due to varicose veins of both lower extremities ?I83.813 - Varicose veins of bilateral lower extremities with pain (ICD-10) Surgical History (Updated 03/31/24 @ 10:15 by Errol Trujillo) Status post laser ablation of incompetent vein ?Z98.890 - Other specified postprocedural states (ICD-10) H/O nasal septoplasty ?Z98.890 - Other specified postprocedural states (ICD-10) Family History (Updated 03/22/24 @ 10:24 by Errol Trujillo) Other Alzheimer dementia Family history of cancer Social History (Updated 03/22/24 @ 10:25 by Errol Trujillo) Within the past year, how often did you have a drink containing alcohol: 2-3 times a week Smoking status: Former smoker Non-prescribed substance use: denies use Meds Home Medications and Allergies Home Medications ?Medication ?Instructions ?Recorded ?Confirmed ?Type atorvastatin 20 mg tablet 20 mg PO DAILY 03/22/24 03/22/24 History levothyroxine 75 mcg tablet 75 mcg PO DAILY 03/22/24 03/22/24 History (Synthroid) losartan 25 mg tablet 25 mg PO DAILY 03/22/24 03/22/24 History Allergies Allergy/AdvReac Type Severity Reaction Status Date / Time No Known Drug Allergies Allergy Verified 03/22/24 10:27 Exam Narrative Exam Narrative: Jose Morton MD personally performed the services described in this documentation, as scribed by Myrtle Orellana RVT, RDMS in my presence and it is both accurate and complete. Myrtle Morton RVT, RDMS, am scribing for, and in the presence of, Dr. Jose Tomas and in the presence of the patient. 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 Assessment and Plan Assessment and Plan (1) Superficial thrombophlebitis of left leg: Plan Patient in today for follow up ultrasound of lower extremity following treatment of Varithena/microfoam completed on 04/13/24. Jose Morton MD personally performed the services described in this documentation, as scribed by Myrtle Orellana RVT, RDMS in my presence and it is both accurate and complete. I, Myrtle Orellana RVT, RDMS, am scribing for, and in the presence of, Dr. Jose Tomas and in the presence of the patient.
--- NOTE | 2024-04-20 13:33 | W.VEIN ---
Discharge Plan Discharge Disposition: Home, Self-Care Outpatient Diagnostics: VC Endovenous Ablation 1VeinRT (Routine) Timeframe: 2 Weeks Facility: [facility] - Location: [facility] Ordered By: Jose Tomas Follow Up Appointments: 04/27/24 Plan of Treatment: EVLT of right leg GSV Print Language: [place] Citizen Discharge Date/Time: 04/20/24 13:58
== END 2024-04-20 13:58 | disposition home or self-care (01) ==
PROVIDERS: PCP Radiology Diagnostic Radiology; Visit Provider Radiology Diagnostic Radiology
DX: I80.02 Phlebitis and thrombophlebitis of superficial vessels of left lower extremity (principal)
CPT/HCPCS: 93971; G0463

== ENCOUNTER 2024-04-27 12:45 | Outpatient (OUT) | payer MEDICARE, BC, SELFPAY ==
--- NOTE | 2024-04-26 16:25 | VEINCLINIC_ITS ---
Vital Signs 04/27/24 13:08 BP 133/74 BP Location Left Brachial BP Position Sitting BP Cuff Size Adult BP Source Automatic Cuff Respiration 16 Pulse 72 Pulse Oximetry (%) 100 Comment The patient's blood pressure is elevated. Varicose Veins Patient in this day for EVLT of right GSV Jose Morton MD personally performed the services described in this documentation, as scribed by Errol Trujillo RN in my presence and it is both accurate and complete. IErrol RN, am scribing for, and in the presence of, Dr. Jose Tomas and in the presence of the patient. thigh: bilateral (symptomsl left leg > right leg), knee: bilateral, calf: bilateral, ankle: bilateral and cordova: bilateral cramping 5 years Worsened in recent months: Yes standing elevating extremities, compression stockings and exercise Reports muscle spasms of leg, edema and leg edema History of lower extremity trauma: No Superficial thrombophlebitis: No Family history of varicose veins: no Has patient had previous lower extremity venous surgery: No Patient has previously received the following treatment(s) for lower extremity varicose veins: Reports none Does patient have a history of : not applicable Has patient had lower extremity venous scan with relux testing: No Support hose used: Yes Problems walking or doing physical activity: Yes How does it affect you: muscle spasms Do you walk much: Yes Do you stand much: Yes Review of Systems ROS Narrative Jose Morton MD personally performed the services described in this documentation, as scribed by Errol Trujillo RN in my presence and it is both accurate and complete. IErrol RN, am scribing for, and in the presence of, Dr. Jose Tomas and in the presence of the patient. Status of ROS 10 or more systems reviewed and unremark able except as noted in history and below Cardiovascular Reports: edema Integumentary/Breast Reports: changes in skin color Hematologic/Lymphatic Reports: easy bleeding [facility] Medical History (Updated 04/26/24 @ 16:29 by Errol Trujillo) Phlebitis and thrombophlebitis of superficial vessels of right lower extremity ?I80.01 - Phlebitis and thrombophlebitis of superficial vessels of right lower extremity (ICD-10) Superficial thrombophlebitis of left leg ?I80.02 - Phlebitis and thrombophlebitis of superficial vessels of left lower extremity (ICD-10) Rotator cuff arthropathy ?M12.819 - Other specific arthropathies, not elsewhere classified, unspecified shoulder (ICD-10) Lung nodule ?R91.1 - Solitary pulmonary nodule (ICD-10) Hypertension ?I10 - Essential (primary) hypertension (ICD-10) Pain due to varicose veins of both lower extremities ?I83.813 - Varicose veins of bilateral lower extremities with pain (ICD-10) Surgical History (Updated 04/27/24 @ 13:21 by Errol Trujillo) Status post laser ablation of incompetent vein ?Z98.890 - Other specified postprocedural states (ICD-10) Status post laser ablation of incompetent vein ?Z98.890 - Other specified postprocedural states (ICD-10) H/O nasal septoplasty ?Z98.890 - Other specified postprocedural states (ICD-10) Family History (Updated 03/22/24 @ 10:24 by Errol Trujillo) Other Alzheimer dementia Family history of cancer Social History (Updated 03/22/24 @ 10:25 by Errol Trujillo) Within the past year, how often did you have a drink containing alcohol: 2-3 times a week Smoking status: Former smoker Non-prescribed substance use: denies use Meds Home Medications and Allergies Home Medications ?Medication ?Instructions ?Recorded ?Confirmed ?Type atorvastatin 20 mg tablet 20 mg PO DAILY 03/22/24 03/22/24 History levothyroxine 75 mcg tablet 75 mcg PO DAILY 03/22/24 03/22/24 History (Synthroid) losartan 25 mg tablet 25 mg PO DAILY 03/22/24 03/22/24 History Allergies Allergy/AdvReac Type Severity Reaction Status Date / Time No Known Drug Allergies Allergy Verified 03/22/24 10:27 Exam Narrative Exam Narrative: Jose Morton MD personally performed the services described in this documentation, as scribed by Errol Trujillo RN in my presence and it is both accurate and complete. Errol Morton RN, am scribing for, and in the presence of, Dr. Jose Tomas and in the presence of the patient. Assessment and Plan Assessment and Plan (1) Pain due to varicose veins of both lower extremities: Plan f/u evaluation with physician along with right leg limited u/s Jose Morton MD personally performed the services described in this documentation, as scribed by Errol Trujillo RN in my presence and it is both accurate and complete. I, Errol Trujillo RN, am scribing for, and in the presence of, Dr. Jose Tomas and in the presence of the patient. Procedures Procedure Instructions Procedures Plan of care: Risks and benefits of the procedure were discussed at length and informed written consent was obtained.? Time-out completed for verification of correct patient, procedure and site.? Staff present during time-out: Errol Trujillo RN,? Jose Tomas MD, Mariaelena Vieira [facility] Time Out Time__1301 Patient prepped and procedure performed in usual sterile fashion. Risk of injury related to use of Diode laser and/or laser devices__CR___ ? Serial number of laser used :? [id number] Control panel self test performed, electrical cords in good condition, floor is dry, basin of water available, fire extinguisher in close proximity_CR__ Polycarbonate goggles available and Laser warning signs outside of doors___CR__ Eye protection provided to patient and staff in room_CR___ Use of laser retardant drapes and dull blackened instruments as directed__CR___ Use of nonflammable prep solutions and use of saline soaked sponges to protect tissues as indicated _CR___ Length ___60 cm Laser operated by _Dr. Tomas____ Physician verbal confirmation laser locked in place__CR__ Laser start time (date and time) _04/27/2024@_1337 Laser stop time(date and time) __04/27/2024@__1344 [place] _8.0___ Average laser use ___2772____Joules Average laser use___346 seconds Pulse continuous ___CR_? Pulse intermittent ___ Amount of Tumescent used _300cc____ Evaluated patient for signs and symptoms of electrical injury __CR___ ? Skin clear at insertion site __CR___ Patient tolerated procedure well.? Right leg Coban dressing applied to access site.? Applied right thigh high leg compression stocking. Will return on05/04/2024 for right leg limited venous ultrasound and exam. IJose MD personally performed the services described in this documentation, as scribed by Errol Trujillo RN in my presence and it is both accurate and complete. I, Errol Trujillo RN, am scribing for, and in the presence of, Dr. Jose Tomas and in the presence of the patient.
--- NOTE | 2024-04-26 16:28 | P.DS_ITS ---
Discharge Plan Discharge Disposition: Home, Self-Care Outpatient Diagnostics: VC Facility EST LMTD (Routine) Timeframe: 2 Weeks Facility: [facility] - Location: [facility] Ordered By: Jose Tomas VC EXT Venous RT LMTD (Routine) Timeframe: 2 Weeks Facility: [facility] - Location: [facility] Center Ordered By: Jose Tomas Follow Up Appointments: 05/04/2024 Plan of Treatment: f/u evaluation with physician along with right leg limited u/s Patient Instructions: Endovenous Ablation (DC) Print Language: Korean Discharge Date/Time: 04/27/24 13:19
--- NOTE | 2024-04-27 12:46 | VEIN_ITS ---
[address] [address] Patient Name: SHASHI SAAB MRN: [id number] date: 1960 Sex: M Assigned Patient Location: Current Patient Location: Accession/Order Number: [id number] Exam Date: 04/27/2024 12:50 Report Date: 04/27/2024 13:58 At the request of: LYNNE CUETO Procedure: VC Endovenous Ablation 1VeinRT EXAMINATION: VC Endovenous Ablation 1Vein right great saphenous vein HISTORY: I83.813 - Varicose veins of bilateral lower extremities w... COMPARISON: No relevant comparison available. TECHNIQUE: The risks and benefits of the procedure had been previously discussed, and were rediscussed at length. Informed written consent was obtained. Keyla Quinn and Mariaelena Vieira assisted. Time out procedure was performed. The right lower extremity was prepared and draped in the usual sterile fashion to allow knee flexion in the sterile field. Duplex ultrasound probe was draped in a sterile cover, sterile transmission gel was used. Venous mapping was performed with the areas of dilation and large tributaries marked. The total length was 60 cm from the entry 10 cm above the medial malleolus to 3 cm below the saphenofemoral junction. The diameter of the greater saphenous vein ranged from 5-6 mm. A 30 gauge needle and 1% buffered lidocaine was used to anesthetize the entry site. A 4 mm incision was made with a scalpel and the saphenous vein was entered percutaneously under direct ultrasound guidance with a micropuncture set, a single stick was successful in gaining access. A micro-guide wire was inserted and the needle removed. A micro-set including a dilator was inserted over the microwire and the needle and dilator were removed. A 0.018 guide wire was inserted through the micro-set and threaded through the saphenous vein to the saphenofemoral junction. The dilator was removed and an introducer sheath was inserted over the wire until the end of the sheath entered the saphenofemoral junction. The dilator and wire were removed and the 600 micron fiber was introduced and placed and positioned so that it extended beyond the sheath and was 3 cm peripheral to the saphenofemoral femoral junction. Final position of the fiber was determined by ultrasound guidance and duplex imaging. Tumescent anesthetic was delivered by ultrasound guidance. 300 cc of fluid was delivered along the entire course of the saphenous vein. The solution consisted of 1000 cc of normal saline with 40 mL of 1% lidocaine and 20 mL of sodium bicarbonate. A final positioning check was made. The energy source was turned on by means of the foot pedal and the fiber and sheath were withdrawn. The total number of Joules delivered was 2772. The laser was active for 346 seconds under continuous pulse, average laser use of 8 J. Laser start time 1:37 PM 04/27/2024 . Laser stop time 1:44 PM 04/27/2024 . A duplex ultrasound revealed compressibility and flow at the saphenofemoral junction immediately after the procedure. Hemostasis at the access site was achieved. The skin incision of the saphenous vein was closed with a 4 x 4. A compression stocking was applied. Postop instructions were given. A follow up appointment was recommended and scheduled. The patient tolerated the procedure well and was discharged in good condition . VEIN/VC Endovenous Ablation 1VeinRT IMPRESSION: Technically successful endovenous ablation of the right great saphenous vein. Electronically authenticated by: LYNNE CUETO Date: 04/27/2024 13:58
--- OUTSIDE RECORDS SUMMARY | 2024-04-27 12:54 | XMS_ITS | CCD ---
Author Organization [facility] Care Team Providers Care Roller Gold Leaf Name Role Phone THAIS WRIGHT Unavailable Unavailable [...] Harper Walker PA-C, Ciara Primary Care Provider [phone] CIARA WALKER Primary Care Unavailable CIARA WALKER Referring Unavailable CIARA WALKER Primary Care Unavailable CIARA WALKER Attending Unavailable CIARA WALKER Referring Unavailable Sarah Navarro Attending Unavailable CIARA WALKER Primary Care Unavailable Mino Pickens Primary Care Physician Unavailab Ilan Oconnor Unavailable Unavailab le Medications Current Medications Medication Drug Class(es) Dates Sig (Normalized) Sig (Original) [id number] 200 actuat albuterol 0.09 mg/actuat metered dose [...] status Current Tobacco User Invalid Interpretation Code [facility] Chest for screeningon Mild centrilobular emphysema [...] Report electronically signed by: Dr. Miguel An [facility] Miguel An MD - 03/14/2024 EXAMINATION: [...] the chest in 3 months is recommended. [facility] Work Phone: Radiology Study observation (narrative) [facility] Work Phone: CT Chest for screeningOrdere d By: Miguel An on 03-14-2024 [facility] [address] LUNG SCREENING (INITIAL/A NNUAL)on [...] Miguel An MD 03/14/24 Final result Normal [facility] Complete Blood Count with Au to Diffon 03-06-2024 Basophils (Bld) [#/Vol] 0.1 10*3/uL Normal 0.0-0.1 [facility] Comment on above: Performed By: #### C BCAD #### [place] [address] Ph. [phone] Basophils/100 WBC (Bld) 1 % Normal 0-1 [facility] Comment on above: Performed By: #### C BCAD #### [place] [address] Ph. [phone] Eosinophils (Bld) [#/Vol] 0.3 10*3/uL Normal 0.0-0.5 [facility] Comment on above: Performed By: #### C BCAD #### [place] [address] Ph. [phone] Eosinophils/100 WBC (Bld) 4 % Normal 0-5 [facility] Comment on above: Performed By: #### C BCAD #### [place] [id number] Ph. [phone] Erythrocyte distribution width (RBC) [Ratio] 12 % Normal 11.5-14.5 [facility] Comment on above: Performed By: #### C BCAD #### [place] [address] Ph. [phone] Hematocrit (Bld) [Volume fraction] 40.2 % Low 42.0-52.0 [facility] Comment on above: Performed By: #### C BCAD #### [place] [address] Ph. [phone] Hemoglobin (Bld) [Mass/Vol] 13.8 g/dL Normal 13.5-17.5 [facility] Comment on above: Performed By: #### C BCAD #### [place] [address] Ph. [phone] Lymphocytes (Bld) [#/Vol] 2.5 10*3/uL Normal 1.0-4.0 [facility] Comment on above: Performed By: #### C BCAD #### [place] [address] Ph. [phone] Lymphocytes/100 WBC (Bld) 38 % Normal 20-40 [facility] Comment on above: Performed By: #### C BCAD #### [place] [address] Ph. [phone] MCH (RBC) [Entitic mass] 32.2 pg Normal 27.0-35.0 [facility] Comment on above: Performed By: #### C BCAD #### [place] [address] Ph. [phone] MCHC (RBC) [Mass/Vol] 34.3 g/dL Normal 32.0-36.0 [facility] Comment on above: Performed By: #### C BCAD #### [address] [address] Ph. [phone] MCV (RBC) [Entitic vol] 93.7 fL Normal 80.0-100.0 [facility] Comment on above: Performed By: #### C BCAD #### [address] [address] Ph. [phone] Monocytes (Bld) [#/Vol] 0.5 10*3/uL Normal 0.3-1.0 [facility] Comment on above: Performed By: #### C BCAD #### [place] [address] Ph. [phone] Monocytes/100 WBC (Bld) 8 % Normal 1-15 [facility] Comment on above: Performed By: #### C BCAD #### [address] [address] Ph. [phone] Neutrophils (Bld) [#/Vol] 3.1 10*3/uL Normal 1.8-7.7 [facility] Comment on above: Performed By: #### C BCAD #### [place] [address] Ph. [phone] Neutrophils/100 WBC (Bld) 48 % Low 50-70 [facility] Comment on above: Performed By: #### C BCAD #### [address] [address] Ph. [phone] Platelet mean volume (Bld) [Entitic vol] 10.1 fL Normal 9.4-12.3 [facility] Comment on above: Performed By: #### C BCAD #### [address] [address] Ph. [phone] Platelets (Bld) [#/Vol] 249 10*3/uL Normal 150-450 [facility] Comment on above: Performed By: #### C BCAD #### [address] [address] Ph. [phone] RBC (Bld) [#/Vol] 4.29 10*6/uL Low 4.70-6.10 [facility] Comment on above: Performed By: #### C BCAD #### [place] [address] Ph. [phone] WBC (Bld) [#/Vol] 6.4 10*3/uL Normal 3.7-11.0 [facility] Comment on above: Performed By: #### C BCAD #### [place] [address] Ph. [phone] Comprehensive Metabolic Pane nain 03-06-2024 Albumin [Mass/Vol] 5.2 g/dL High 3.5-5.0 [facility] Comment on above: Performed By: #### F T4, CMP, [id number], LIPD, PSA #### [place] [address] Ph. [phone] ALP [Catalytic activity/Vol] 58 U/L Normal 38-126 [facility] Comment on above: Performed By: #### F T4, CMP, [id number], LIPD, PSA #### [place] [address] Ph. [phone] ALT [Catalytic activity/Vol] 35 U/L Normal 0-50 [facility] Comment on above: Performed By: #### F T4, CMP, WDU141, LIPD, PSA #### [place] [address] Ph. [phone] AST [Catalytic activity/Vol] 46 U/L Normal 17-59 [facility] Comment on above: Performed By: #### F T4, CMP, MYS404, LIPD, PSA #### [place] [address] Ph. [phone] Bilirubin [Mass/Vol] 0.5 mg/dL Normal 0.2-1.3 [facility] Comment on above: Performed By: #### F T4, CMP, [id number], LIPD, PSA #### [place] [address] Ph. [phone] Calcium [Mass/Vol] 9.9 mg/dL Normal 8.4-10.2 [facility] Comment on above: Performed By: #### F T4, CMP, BBC022, LIPD, PSA #### [place] [address] Ph. [phone] Chloride [Moles/Vol] 89 mmol/L Low 98-107 [facility] Comment on above: Performed By: #### F T4, CMP, NWN240, LIPD, PSA #### [place] [address] Ph. [phone] CO2 [Moles/Vol] 34 mmol/L High 22-32 [facility] Comment on above: Performed By: #### F T4, CMP, EUM777, LIPD, PSA #### [place] [address] Ph. [phone] Creatinine [Mass/Vol] 0.62 mg/dL Low 0.66-1.25 [facility] Comment on above: Performed By: #### F T4, CMP, FNU374, LIPD, PSA #### [place] [address] Ph. [phone] GFR/1.73 sq M.predicted among non-blacks MDRD (S/P/Bld) [Vol rate/Area] 106 mL/min/{1.73_m2} Normal >60 [facility] Comment on above: Result Comment: GFR calculated using CKD-EPI (2020) formula.\X0D0A\Stage 1 Kidney damage (e.g., protein in the urine) with normal GFR >=90\X0D0A\Stage 2 Kidney damage with mild decrease in GFR 60-89\X0D0A\Stage 3a Moderate decrease in GFR 45-59\X0D0A\Stage 3b Moderate decrease in GFR 30-44\X0D0A\Stage 4 Severe reduction in GFR 15-29\X0D0A\Stage 5 Kidney failure <15 Performed By: #### F T4, CMP, QLA797, LIPD, PSA #### [place] [address] Ph. [phone] Glucose [Mass/Vol] 81 mg/dL Normal 65-100 [facility] Comment on above: Performed By: #### F T4, CMP, MCW992, LIPD, PSA #### [place] [address] Ph. [phone] Potassium [Moles/Vol] 4.4 mmol/L Normal 3.6-5.0 [facility] Comment on above: Performed By: #### F T4, CMP, IJJ491, LIPD, PSA #### [place] [address] Ph. [phone] Protein [Mass/Vol] 7.9 g/dL Normal 6.3-8.2 [facility] Comment on above: Performed By: #### F T4, CMP, VZQ026, LIPD, PSA #### [place] [address] Ph. [phone] Sodium [Moles/Vol] 132 mmol/L Low 135-145 [facility] Comment on above: Performed By: #### F T4, CMP, NYH185, LIPD, PSA #### [place] [address] Ph. [phone] Urea nitrogen [Mass/Vol] 9 mg/dL Normal 9-20 [facility] Comment on above: Performed By: #### F T4, CMP, OHM580, LIPD, PSA #### [place] [address] Ph. [phone] Free T4on 03-06-2024 Free T4 [Mass/Vol] 1.33 ng/dL Normal 0.78-2.19 [facility] Comment on above: Performed By: #### F T4, CMP, [id number], LIPD, PSA #### [place] [address] Ph. [phone] Lipid Panelon 03-06-2024 Cholesterol [Mass/Vol] 180 mg/dL Normal 100-200 [facility] Comment on above: Result Comment: <200 mg/dL is recommended cholesterol level. Performed By: #### F T4, CMP, CTC168, LIPD, PSA #### [place] [address] Ph. [phone] Cholesterol in HDL [Mass/Vol] mg/dL Normal >40 [facility] Comment on above: Performed By: #### F T4, CMP, NMA565, LIPD, PSA #### [place] [address] Ph. [phone] Cholesterol in LDL [Mass/Vol] 51 mg/dL Normal 20-100 [facility] Comment on above: Performed By: #### F T4, CMP, TLH145, LIPD, PSA #### [address] [address] Ph. [phone] Cholesterol.total/Ch olesterol in HDL [Mass ratio] 2 {ratio} Normal 1-5 [facility] Comment on above: Performed By: #### F T4, CMP, TGY740, LIPD, PSA #### [place] [address] Ph. [phone] Triglyceride [Mass/Vol] 97 mg/dL Normal 10-150 [facility] Comment on above: Performed By: #### F T4, CMP, SWX906, LIPD, PSA #### [address] [address] Ph. [phone] TSH Reflex FT4on 03-06-2024 TSH 5.090 mIU/mL High 0.470-4.680 [facility] Comment on above: Performed By: #### F T4, CMP, [id number], LIPD, PSA #### [place] [address] [address] [phone] Otolaryngology Office/Clinic Noteon 03-08-2023 Otolaryngology Office/Clinic Note [...] [place] [address]-12, 63484, [place] [address] to discuss with his insurance company to see what his vie-wh-ysqmms expense would be. We did discuss the [...] surgery without patient-specific risk Follow-up level 4 90595 added for otic microscopy use Physician Comments [...] Electronically s (more content not included)... Normal [facility] Otolaryngology Office/Clinic Noteon 02-25-2023 Otolaryngology Office/Clinic [...] today, i (more content not included)... Normal [facility] Otolaryngology Office/Clinic Noteon 01-05-2023 Otolaryngology Office/Clinic [...] Carolyn Wells PA-C 01/10/23 23:30 EDT Normal [facility] Otolaryngology Office/Clinic Noteon 12-15-2022 Otolaryngology Office/Clinic [...] mL, 0 Refill(s), 12/25/22 8:54:00 EDT, Pharmacy: [id number] 2. Dysfunction of both eustachian tubes [...] Tobacco Former (more content not included)... Normal [facility] Audiology Office/Clinic Note on 03-31-2022 Audiology Office/Clinic Note History Patient was seen today for a hearing test and aided testing. He was referred by his PCP - ELLE Walker for testing required for his [facility] certification. Patient is a hearing aid user. [...] by Heather Tariq 03/31/22 16:59 EST Normal [facility] SURGICALon 02-04-2021 SURGICAL [facility] SHASHI PEREZ [id number] Assoc. Page 1 of [address] [place] [address] PROC: 02/04/2021 [facility] RECV: 02/06/2021 [address] [facility] RPTD: 02/07/2021 [place] [address] LOC: [facility] ACCT: [id number] SEX: M : 1960 AGE: 60 Y [...] ns. MTK/[id number] Microscopic Examination: Microscopic examination performed. [id number] LATANYA STEPHENSON M.D., F.C.A.P NVML/ [facility] Printed on: 02/07/[address] [place] [id number] Original print date: 02/07/2021 Normal [facility] CT LUNG SCREENINGon 06-11-19 1. No acute cardiopulmonary process or convincing evidence of new pulmonary malignancy. 2. Sequela of old healed granulomatous disease again identified. L-RAD 1 No findings or minor findings; benign nodules. RECOMMENDATIONS: Annual LDCT screening for 2 years and suggest annual LDCT until patient no longer eligible for definitive treatment. [place], [place] EXAMINATION: CT LUNG SCREENING (INITIAL/ANNUAL) 06/11/2020 [...] Report electronically signed by: Dr. Zana Galarza [place], [place] Karen Goncalves Radiant Results From [facility] [...] patient no longer eligible for definitive treatment. [place], [place] ALT, [facility] 0 ALT [Catalytic activity/Vol] 51 U/L High 0 - 50 U/L [place] AST, [facility] 0 AST [Catalytic activity/Vol] 52 U/L 17 - 59 U/L [place] Basic Metabolic Panel, [facility] 03-21-2020 Calcium [Mass/Vol] 9.1 mg/dL 8.4 - 10. 2 mg/dL [place] Chloride [Moles/Vol] 99 mmol/L [place] CO2 [Moles/Vol] 31 mmol/L [place] Creatinine [Mass/Vol] 0.66 mg/dL 0.66 - 1.25 mg/dL [place] GFR/1.73 sq M predicted among non-blacks MDRD (S/P/Bld) [Vol rate/Area] 104 mL/min/{1.73_m2} >60 mL/min/1.73m2 [place] Comment on above: Stage 1 Kidney damage (e.g., protein in the urine) with normal GFR >=90 Stage 2 Kidney damage with mild decrease in GFR 60-89 Stage 3a Moderate decrease in GFR 45-59 Stage 3b Moderate decrease in GFR 30-44 Stage 4 Severe reduction in GFR 15-29 Stage 5 Kidney failure <15 Glucose [Mass/Vol] 90 mg/dL 65 - 100 mg/dL [place] Potassium [Moles/Vol] 4.3 mmol/L [place] Sodium [Moles/Vol] 141 mmol/L [place] Urea nitrogen [Mass/Vol] 13 mg/dL 9 - 20 mg/dL [place] CBC, [facility] 0 Erythrocyte distribution width (RBC) [Ratio] 11.9 % 11.5 - 14.5 % [place] Hematocrit (Bld) [Volume fraction] 40.4 % Low 42 - 52 % [place] Hemoglobin (Bld) [Mass/Vol] 13.6 g/dL 13.5 - 17.5 g/dL [place] Interpretation and review of laboratory results Abnormal [place] MCH (RBC) [Entitic mass] 32.1 pg 27 - 35 pg [place] MCHC (RBC) [Mass/Vol] 33.7 g/dL 32 - 36 g/dL [place] MCV (RBC) [Entitic vol] 95 fL 80 - 100 fL [place] Platelet mean volume (Bld) [Entitic vol] 9.8 fL 9.4 - 12.3 fL [place] Platelets (Bld) [#/Vol] 169 10*3/uL [place] RBC (Bld) [#/Vol] 4.24 10*6/uL Low [place] WBC (Bld) [#/Vol] 4.3 10*3/uL [place] Ordered by [facility] [place] Free T4, [facility] 03-21 Free T4 [Mass/Vol] 1.01 ng/dL 0.78 - 2. 19 ng/dL [place] [facility] [place] Hemoglobin A1c, [facility] n 03-21-2020 Glucose [Mass/Vol] 76.5 mg/dL [place], [place] Comment on above: Estimated Average Glucose is a caluculated value from Hemoglobin A1C and is patient financial representative of the average blood glucose level in the last 2-3 month period. HbA1c (Bld) [Mass fraction] 4.9 % 4 - 6 % [place] Comment on above: [place] [employer] guidelines indicate that patients with HgbA1C in the range of 5.7-6.4% are at increased risk for development of diabetes, and intervention by lifestyle modification may be beneficial. HgbA1C greater than or equal to 6.5% is considered diagnostic of diabetes. Ordered by [facility] [place] Lipid Panel, [facility] 1 05-21-2019 Cholesterol [Mass/Vol] 175 mg/dL 100 - 200 mg/dL [place] Comment on above: <200 mg/dL is recommended cholesterol level. Cholesterol in HDL [Mass/Vol] 83 mg/dL >40 [place] Cholesterol in LDL [Mass/Vol] 57 mg/dL 20 - 100 mg/dL [place] CHOLESTEROL/HDL RELATIVE RISK 2 [place] Triglyceride [Mass/Vol] 174 mg/dL High 10 - 150 mg/dL [place] Otheron 03-21-2020 Ordered by [place] Interpretation and review of laboratory results Abnormal [place] Ordered by [place] PSA Screen, [facility] PSA, TOTAL 0.96 ng/mL 0 - 4 ng/mL [place] Comment on above: [facility] UTILIZES [employer] PSA METHODOLOGY. DIFFERENT TEST METHODS CANNOT BE USED INTERCHANGEABLY. PSA RESULTS IN A GIVEN PATIENT SAMPLE DETERMINED WITH DIFFERENT TESTS AND FROM DIFFERENT MANUFACTURERS CAN VARY DUE TO DIFFERENCES IN TEST METHODS AND REAGENTS. TSH, [facility] 0 TSH Qn 4.420 m[IU]/L [place], [place] Laboratory - Chemistry and C hemistry - challengeon 01-19-2013 25-hydroxyvitamin D3 [Mass/Vol] 30.7 ng/mL Invalid Interpretation Code 30.0-100.0 [facility] CK [Catalytic activity/Vol] 271.0 U/L Invalid Interpretation Code 24-194 [facility] CRP [Mass/Vol] 4.9 mg/L Invalid Interpretation Code 0.0-4.9 [facility] TSH Qn 1.70 m[IU]/L Invalid Interpretation Code 0.50-4.00 [facility] - Hematology and Cell countson 01-19-2013 ESR (Bld) [Velocity] 10 mm/h Invalid Interpretation Code 0-20 [facility] Vital Signs Date Time Vital Sign Value Performing Clinician Facility 03-28-2024 14:55-0500 SaO2% (BldA) [Mass fraction] 99 % [facility] 03-28-2024 14:11-0500 Body height 177.8 cm [facility] 03-28-2024 14:11-0500 Body mass index (BMI) [Ratio] 28.98 kg/m2 [facility] 03-28-2024 14:11-0500 Body surface area Derived from formula 2.13 m2 [facility] 03-28-2024 14:11-0500 Body temperature 98.2 [degF] [facility] [employer] 03-28-2024 14:11-0500 Body weight 91.63 kg [facility] 03-28-2024 14:11-0500 Diastolic blood pressure 70 mm[Hg] [facility] 03-28-2024 14:11-0500 Heart rate 64 /min [facility] 03-28-2024 14:11-0500 Respiratory rate 16 /min [facility] [employer] 03-28-2024 14:11-0500 Systolic blood pressure 134 mm[Hg] [facility] D[facility]az [facility] [employer] 03-13-2024 08:14-0500 SaO2% (BldA) [Mass fraction] 99 % Sarah Navarro MD Work Phone: [facility] 03-13-2024 08:05-0500 Body height 175.3 cm Sarah Navarro MD Work Phone: [facility] 03-13-2024 08:05-0500 Body mass index (BMI) [Ratio] 28.35 kg/m2 Sarah Navarro MD Work Phone: [facility] 03-13-2024 08:05-0500 Body temperature 98.71 [degF] Sarah Navarro MD Work Phone: [facility] 03-13-2024 08:05-0500 Body weight 87.09 kg Sarah Navarro MD Work Phone: [facility] 03-13-2024 08:05-0500 Diastolic blood pressure 72 mm[Hg] Sarah Navarro MD Work Phone: [facility] 03-13-2024 08:05-0500 Heart rate 69 /min Sarah Navarro MD Work Phone: [facility] 03-13-2024 08:05-0500 Respiratory rate 16 /min Sarah Navarro MD Work Phone: [facility] 03-13-2024 08:05-0500 Systolic blood pressure 167 mm[Hg] Sarah Navarro MD Work Phone: [facility] 10-09-2021 09:10-0400 Body weight 83.69 kg Jesu Bethea II, MD Work Phone: [facility] 03-26-2021 10:39-0500 Body weight 88.56 kg Aida Benítez PA-C Work Phone: [facility] 03-26-2021 10:39-0500 Diastolic blood pressure 79 mm[Hg] Aida Bamigy PA-C Work Phone: [facility] 03-26-2021 10:39-0500 Heart rate 68 /min Aida Bamigy PA-C Work Phone: [facility] 03-26-2021 10:39-0500 SaO2% (BldA) [Mass fraction] 98 % Aida Conigy PA-C Work Phone: [facility] 03-26-2021 10:39-0500 Systolic blood pressure 135 mm[Hg] Aida Bamigy PA-C Work Phone: [facility] 01-19-2013 13:09-0400 Body height 181.61 cm [facility] 01-19-2013 13:09-0400 Body mass index (BMI) [Ratio] 38.51 kg/m2 [facility] 01-19-2013 13:09-0400 Body surface area Derived from formula 2.53 m2 [facility] 01-19-2013 13:09-0400 Body weight 127.01 kg [facility] 01-19-2013 13:09-0400 Diastolic blood pressure 86 mm[Hg] [facility] 01-19-2013 13:09-0400 Heart rate 84 /min [facility] 01-19-2013 13:09-0400 Systolic blood pressure 134 mm[Hg] [facility] Encounters Encounter Date Encounter Type Care Provider Facility Start: 03-28-2024 Office outpatient ne w 60 minutes Mino Pickens Other [facility] Office Start: 03-14-2024 End: 03-16-2024 Subsequent hospital visit by physician Ciara Walker PA-C Work Phone: [facility] CT Scan Comment on above: Screening for lung c ancer; History of tobacco use Start: 03-14-2024 ambulatory [facility] Start: 03-13-2024 End: 03-13-2024 Emergency department patient visit Sarah Navarro MD Work Phone: 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) Start: 03-06-2024 [facility] Start: 03-17-2023 ambulatory Ciara Theodor e Beitler III PA-C Facility:[facility] Start: 03-08-2023 End: 03-09-2023 ambulatory Ciara Mich Beitler III PA-C Facility[facility] Start: 03-02-2023 ambulatory Ciara Theodor e Beitler III PA-C Facility:[facility] Start: 02-25-2023 ambulatory Spencer Sorensen caro PA-C Facility:[facility] Start: 02-25-2023 End: 02-26-2023 ambulatory Ciara Mich Beitler III PA-C Facility:[facility] Start: 01-05-2023 End: 01-06-2023 ambulatory Ciara Mich Beitler III PA-C Facility:[facility] Start: 12-15-2022 End: 12-16-2022 ambulatory Ciara Mich Beitler III PA-C Facility:[facility] Start: 03-31-2022 End: 04-01-2022 ambulatory Ciara Mich Beitler III PA-C Facility:[facility] Start: 10-09-2021 End: 10-09-2021 Orders Only Thais Kim Located within [facility] Comment on above: Rectus diastasis of lower abdomen (Primary Dx) Start: 10-09-2021 End: 10-09-2021 Office outpatient visit 15 minutes Jesu Bethea MD Work Phone: [facility] Comment on above: Redundant skin of ab domen (Primary Dx); Recent weight loss; Intertrigo; Nicotine vapor product user Start: 04-24-2021 End: 12-14-[address] LYNNE CUETO Facility:[facility] Start: 03-26-2021 End: 03-26-2021 ambulatory AIDA BENÍTEZ [facility] Start: 03-26-2021 End: 03-26-2021 Office consultation new/estab patient 30 min Aida Benítez PA-C Work Phone: [facility] Comment on above: Redundant skin of ab weinberg (Primary Dx); Recent weight loss Start: 07-11-2020 End: 07-11-2020 Orders Only Barby Caba Matthew Work Phone: [facility] Start: 06-11-2020 End: 06-13-2020 Subsequent hospital visit by physician [facility]Pet Room [facility] CT Scan Comment on above: Ex-smoker Start: 05-28-2020 End: 05-28-2020 Subsequent hospital visit by physician Opal Don Work Phone: [facility] Audiology Start: 03-21-2020 End: 03-21-2020 Subsequent hospital visit by physician Ciara Walker [facility] Laboratory Start: 11-20-2014 End: 11-20-2014 Patient encounter procedure THAIS WRIGHT [facility] Start: 01-19-2013 Office Services Ilan rajan Other [facility] Office Start: 11-28-2012 End: 11-29-2012 Patient encounter procedure MIGUEL DIALLO [facility] Procedures Date Procedure Procedure Detail Performing Clinician Start: 03-28-2024 Ct thorax w/contrast material Mino Pickens Start: 03-28-2024 Ct thorax w/o & w/co ntrast material [facility]ino Pickens Start: 03-28-2024 Ct thorax w/o contra st material Mino Pickens Start: 03-14-2024 CT Chest for screening Ciara Walker PA-C Work Phone: Start: 03-06-2024 PSA screening CIARA MCGHEE Comment on above: Result Comment: [facility] UTILIZES [employer] PSA METHODOLOGY. DIFFERENT TEST METHODS CANNOT BE USED INTERCHANGEABLY. PSA RESULTS IN A GIVEN PATIENT SAMPLE DETERMINED WITH DIFFERENT TESTS AND FROM DIFFERENT MANUFACTURERS CAN VARY DUE TO DIFFERENCES IN TEST METHODS AND REAGENTS. Performed By: #### F T4, CMP, [id number], LIPD, PSA #### [place] [id number] [place] [address] Ph. [phone] Start: 02-04-2021 Colonoscopy Sarah willard MD Work [...] Screening for malign ant neoplasm of colon [facility] Start: 03-12-2025 End: 03-12-2025 Patient encounter procedure 03/12/2025 10:30 AM EST Office Visit [facility] [address] [phone] Ciara Walker PA-C [address] [place] [address] [phone] annual [facility] Comment on above: annual Start: 03-06-2025 Depression Screen Depression Screen [facility] Start: 03-06-2025 Lipid panel Lipids [facility] Start: 03-28-[address] chest [facility] Start: 03-14-2024 End: 03-14-2024 Patient encounter procedure 03/14/2024 8:00 AM EST Appointment [facility] Scan [address] [place], [place] [phone] Ciara Walker PA-C [address] [place] [address] [address] Scan Comment on above: Routine Start: 01-09-2024 COVID-19 Vaccine ( season) COVID-19 Vaccine ( season) [facility] Start: 08-17-2023 Abdominal aortic ane urysm screening AAA screen [facility] Start: 08-17-2023 Pneumococcal 65+ yea rs Vaccine (1 of 1 - PCV) Pneumococcal 65+ years Vaccine (1 of 1 - PCV) [facility] Start: 08-12-2023 Annual Wellness Visi t (Medicare) Annual Wellness Visit (Medicare) [facility] Start: 09-01-2021 End: 09-01-2021 Patient encounter procedure 09/01/2021 Office Visit Plastic Surgery Jesu Bethea II, MD [facility] [place] [address] [facility] Start: 06-21-2021 COVID-19 Vaccine (4 - Booster for Pfizer series) COVID-19 Vaccine (4 - Booster for Pfizer series) [facility] Start: 02-25-2021 End: 02-25-2021 Office Visit 02/25/2021 Office Visit Primary Care Ciara Walker PA-C [address] [facility] [place], [place] [phone] [facility] Start: 01-08-2021 Influenza vaccination Sequenti al Influenza Vaccine (#1) [facility] Start: 01-01-2021 End: 01-01-2021 Appointment 01/01/2021 Appointment Audiology Opal Don, AuD [address] [facility] [place], [place] [phone] [facility] Audiology Start: 05-28-2020 End: 05-28-2020 Appointment 05/28/2020 Appointment Audiology Opal Don, AuD [address] [place], [place] [phone] [facility] Audiology Start: 01-09-2020 Influenza vaccination Flu vaccine (# 1) [place] Start: 01-09-2020 Influenza vaccinatio n given Sequential Influenza Vaccine (#1) [facility] Start: 2018 Respiratory Syncytia l Virus (RSV) or age 60 yrs+ (1 - 1-dose 60+ series) Respiratory Syncytial Virus (RSV) or age 60 yrs+ (1 - 1-dose 60+ series) [facility] Start: 2008 Administration of he rpes zoster vaccine Zoster Vaccines (1 of 2) [facility] Start: 2008 Screening for malign ant neoplasm of colon [facility] Start: 2008 Shingles Vaccine (1 of 2) Milner gles Vaccine (1 of 2) [place] Start: 08-17-2003 Screening for malign ant neoplasm of colon [facility] Start: 1977 DTaP/Tdap/Td vaccine (1 - Tdap) DTaP/Tdap/Td vaccine (1 - Tdap) [facility] Start: 1976 Hepatitis C antibody , confirmatory test Hepatitis C Screening [facility] Start: 1976 Hepatitis C screening [facility] Start: 1974 COVID-19 Vaccine (1 of 2) COVI D-19 Vaccine (1 of 2) [facility] Start: 1973 HIV screening [facility] Start: 1970 Adolescent depressio n screening assessment Depression Screening (PHQ9) [facility] Start: 1970 Depression screening using PHQ-9 (Patient Health Questionnaire 9) score Depression Screening (PHQ-2/9) [facility] Start: 1968 Lipid panel Lipid screen [place], [place] Start: 1961 History and physical examination, annual for health maintenance Wellness Visit [facility] Start: 1958 Creatinine measurement Creatinine mo nitoring [place], [place] Start: 1958 Hepatitis C screening Hepatitis C sc reen [place], [place] Start: 1958 Potassium monitoring Potassium monit oring [place], [place] Start: 1958 Prostate specific an tigen measurement PSA Level [facility] Start: 1958 Screening for malign ant neoplasm of lung Low-dose CT Lung Cancer Screen [facility] Start: 1958 Tetanus vaccination Tetanus: Every 1 0yrs [facility] Start: 1958 TSH Qn TSH testing [place], [place] End: 10-09-[address] Cont[address] CT Abdomen Without Contrast Imaging Routine Rectus diastasis of lower abdomen 1 Occurrences starting 10/09/2021 until 10/09/2022 [facility] Work Phone: Comment on above: 1 Occurrences starti ng 10/09/2021 until 10/09/2022 Immunizations Immunization Date Immunization Notes Care Provider Kenji decker 03-06-2024 influenza, high dose seasonal, preservative-free Sarah Navarro MD Work Phone: [facility] Work Phone: 04-27-2022 zoster vaccine recombinant Sarah Navarro MD Work Phone: [facility] 04-21-2022 influenza, injectabl e, quadrivalent, preservative free Sarah Navarro MD Work Phone: [facility] Work Phone: 02-23-2022 zoster vaccine recombinant Sarah Navarro MD Work Phone: [facility] 04-22-2021 Influenza, injectabl e, Madin Marcia Canine Kidney, preservative free, quadrivalent Sarah Navarro MD Work Phone: [facility] 03-21-2020 influenza, injectabl e, quadrivalent, preservative free Sarah Navarro MD Work Phone: [facility] Payers Date Payer Category Payer Medicare [id number] 2023 Unknown [id number] 2017 Unknown MMO MED MUTUAL S UPERMED PPO [id number] 2017-Present [id number] 2016 Unknown [id number] 2016 Unknown [id number] [id number] 2014 Unknown [id number] 1959 Self-pay 1958 Unknown [id number] [id number] 1958 Unknown [id number] [id number] 1958 Unknown [id number] 2.16.840.1.243606.3.579.2.903 1958 Unknown [id number] [id number] 1958 Unknown [id number] [id number] 1958 Unknown [id number] 2.16.840.1.356820.3.579.2.196 1958 Unknown [id number] 2.16.840.1.965703.3.579.2.196 1958 Unknown [id number] 2.16.840.1.968779.3.579.2.196 1958 Unknown [id number] 2.16.840.1.064716.3.579.2.196 1958 Unknown [id number] 2.16.840.1.006056.3.579.2.196 1958 Unknown [id number] 2.16.840.1.295124.3.579.2.196 1958 Unknown [id number] 2.16.840.1.116505.3.579.2.196 1958 Unknown [id number] 2.16.840.1.099854.3.579.2.196 1958 Unknown [id number] 2.16.840.1.056352.3.579.2.754 1958 Unknown [id number] [id number] 1958 Unknown [id number] [id number] Social History Date Type Detail Facility Start: 02-20-2020 End: 02-23-2022 Tobacco smoking status NHIS Former smoker [place] End: 03-10-2011 History of tobacco use Cigarette Smoker [place] History of tobacco use Cigar [place] Start: 02-20-2020 End: 02-23-2022 Tobacco use and exposure Never used [place] Start: 02-20-2020 End: 03-13-2024 Alcohol intake Current drinker of alcohol (finding) [place] Start: 02-20-2020 History SDOH Alcohol Frequency 5 [place] Start: 02-20-2020 History SDOH Alcohol Std Drinks 1 [place] Start: 1960 Sex Assigned At Not on file [place] Start: 1960 Sex Assigned At Male [place] End: 03-10-2011 History of tobacco use Current smoker [facility] Start: 03-15-2018 End: 03-13-2024 Cigarettes smoked current (pack per day) - Reported 3 [facility] Start: 09-29-2021 End: 10-09-2021 Exposure to SARS-CoV-2 (event) Not sure [facility] Start: 02-20-2020 End: 03-13-2024 Alcohol Use Disorder Identification Test - Consumption [AUDIT-C] [facility] How often to you hav e a drink containing alcohol? 4 or more times a week [facility] How many standard dr inks containing alcohol do you have on a typical day? 1 or 2 [facility] Work Phone: Frequency of Binge Drinking Not on file [facility] Work Phone: (I/We) worried mike ivan (my/our) food would run out before (I/we) got money to buy more. Never true [facility] Work Phone: At any time in the p ast 12 months, were you homeless or living in halfway [including now]? No [facility] Work Phone: Start: 03-13-2024 Alcohol Comment couple drinks/day [facility] Work Phone: Start: 06-10-2020 Gender identity Identifies as male gender (finding) [facility] Work Phone: Start: 06-10-2020 Sexual orientation Heterosexual (finding) [facility] Work Phone: Start: *Tobacco [employer] Start: Denies substance abuse [employer] Start: Alcohol [employer] Start: Caffeine [employer] Hospital Discharge instructions 03-13-2024 Discharge InstructionsAttachments Note Date & Type Note Facility 03-13-2024 Hospital Discharg e instructions Sarah Navarro MD - 03/13/2024 8:53 AM EST Continue to clean wound and bandage for the next 48 hours as discussed in the ER today The following attachments cannot be sent through Care Everywhere.Compression Stockings: General Info (Gambian)documented in this encounter [facility] Work Phone: History of Present [...] Bethea II, MD documented in this encounter [facility] History of Present illness Narrative 03-26-2021 [...] Aida Benítez PA-C documented in this encounter [facility] Evaluation note Note Date & Type Note Facility Evaluation note Diagnosis Redundant skin of abdomen- Primary Recent weight loss documented in this encounter [facility] Evaluation note Note Date & Type Note Facility Evaluation note Diagnosis Rectus diastasis of lower abdomen- Primary documented in this encounter [facility] Evaluation note Note Date & Type Note Facility Evaluation note Diagnosis Redundant skin of abdomen- Primary Recent weight loss [employer] Other specified erythematous condition Nicotine vapor product user documented in this encounter [facility] Evaluation note Note Date & Type Note Facility Evaluation note Diagnosis Bleeding from varicose vein- Primary Varicose veins of lower extremities with other complications documented in this encounter [facility] Work Phone: Evaluation note Note Date & Type Note Facility Evaluation note Diagnosis Screening for lung cancer History of tobacco use Personal history of tobacco use, presenting hazards to health documented in this encounter [facility] Work Phone: Summary Purpose Family History No Family History Records FoundNo Family History Records FoundNo Family History Records FoundNo Family History Records FoundNo Family History Records FoundNo Family History Records FoundNo Family History Records Found Advance Directives Documents on File Type Date Recorded 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 He reported the left hearing aid has been having some intermittent feedback. The patient noted he needs domes, wax guards, and a new cleaning brush. Audiology Appointment Note: Patient was fit with: Phonak Audeo M90-R Right SN: [id number] Left SN: [id number] Dome size: small vented for right and medium open for left Solar Tech length: 2M for the right and 2S for the left Phonak Warranty expires: 08/04/2021 Otoscopy revealed minimal cerumen accumulation bilaterally. Tympanic membranes were visualized and appropriate landmarks were present bilaterally. Cleaned and checked both hearing aids. Initial listening check revealed the right hearing aid was not amplifying due to broken prototype machinist. Replaced the patient's right prototype machinist (2M) under warranty. The left hearing aid [...] datalogging could not be reviewed. 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 Dispensed 4 [...] CT LUNG SCREENING Ciara Walker PA-C [address] [place] [address] Specialty Diagnoses / Procedures Referred By Brody padgett Referred To Contact Radiology Diagnoses Rectus diastasis of lower abdomen Procedures CT Abdomen Without Contrast Jesu Bethea II, MD [facility] [place] [address] Referral ID Status Reason Start Date Expiration Date V isits Requested Visits Authorized [id number] New Request 10/09/2021 10/09/2022 1 1 Specialty Diagnoses / Procedures Referred By Brody padgett Referred To Contact Radiology Diagnoses Screening for lung cancer History of tobacco use Procedures CT LUNG SCREENING Ciara Walker PA-C [address] [place] [address] Referral ID Status Reason Start Date Expiration Date Visits Re quested Visits Authorized [id number] Closed 03/10/2024 03/10/2025 1 1 Assessments Diagnosis Ex-smoker Personal history of tobacco use, presenting hazards to health Additional Source Comments (unrecognized sect ion and content) No Status Records FoundNo Status Records FoundNo Status Records FoundNo Status Records FoundNo Status Records FoundNo Status Records FoundNo Status Records Found INFORMATION SOURCE (unrecogn ized section and content) DATE CREATED AUTHOR 04/17/2018 [facility] DATE CREATED AUTHOR AUTHOR'S ORGANIZ ATION 04/17/2018 [facility] DATE CREATED AUTHOR AUTHOR'S ORGANIZ ATION 02/08/2021 [facility] DATE CREATED AUTHOR AUTHOR'S ORGANIZ ATION 10/09/2021 [facility] DATE CREATED AUTHOR AUTHOR'S ORGANIZ ATION 12/14/2021 [facility] DATE CREATED AUTHOR AUTHOR'S ORGANIZ ATION 03/15/2023 [facility] DATE CREATED AUTHOR AUTHOR'S ORGANIZ ATION 03/15/2024 [facility] Reason for Visit (unrecogniz ed section and content) Status Reason Specialty Diagnoses / Procedures Referre d By Contact Referred To Contact Closed Radiology Diagnoses Ex-smoker Procedures CT LUNG SCREENING Ciara Walker PA-C [address] [place] [address] Reason Comments Advice Only Skin removal Specialty Diagnoses / Procedures Referred By Brody padgett Referred To Contact Radiology Diagnoses Screening for lung cancer History of tobacco use Procedures CT LUNG SCREENING Ciara Walker PA-C [address] [place] [address] Referral ID Status Reason Start Date Expiration Date Visits Re quested Visits Authorized [id number] Closed 03/10/2024 03/10/2025 1 1 Care Teams (unrecognized sec tion and content) [employer] Relationship Specialty Start Date End Date Ciara Walker III, PA-C [address] [place] [address] PCP - General Physician Channel Worker 03/21/21 [employer] Relationship Specialty Start Date End Date Ciara Walker III, PA-C [address] [place] [address] PCP - General Physician Channel Worker 03/21/21 [employer] Relationship Specialty Start Date End Date Ciara Walker III, PA-C [address] [place] [address] PCP - General Physician Channel Worker 03/21/21 [employer] Relationship Specialty Start Date End Date Ciara Walker PA-C PCP - General Family Medicine 02/01/20 [employer] Relationship Specialty Start Date End Date Ciara [...] BE BASED ON THE PRIMARY CLINICAL RECORDS. [facility] [employer] [facility]. provides no warranty or guarantee of the accuracy or completeness of information in this document.
[2024-04-27 13:08] VITALS: BP 133/74; PULSE 72; O2SAT 100
[2024-04-27] MEDS: LIDOCAINE HCL 1% 100 MG/10 ML MDV INJ (13:15)
[2024-04-27] MEDS: 0.9 % SODIUM CHLORIDE 500 ML, LIDOCAINE HCL 20 ML, SODIUM BICARBONATE 10 MEQ INJ (13:16)
== END 2024-04-27 13:19 | disposition home or self-care (01) ==
LOC: VC 12:45
PROVIDERS: PCP Radiology Diagnostic Radiology; Visit Provider Radiology Diagnostic Radiology
DX: I83.813 Varicose veins of bilateral lower extremities with pain (principal)
CPT/HCPCS: 36478

== ENCOUNTER 2024-05-04 14:49 | Outpatient (OUT) | payer MEDICARE, BC, SELFPAY ==
--- NOTE | 2024-05-04 08:05 | VEINCLINIC_ITS ---
Varicose Veins Patient in this day for follow up ultrasound post EVLT of right GSV Kevon Morton MD personally performed the services described in this documentation, as scribed by Myrtle Orellana RVT, RDMS in my presence and it is both accurate and complete. Myrtle Morton RVT, RDMS, am scribing for, and in the presence of, Dr. Kevon Simmons and in the presence of the patient. thigh: bilateral (symptomsl left leg > right leg), knee: bilateral, calf: bilateral, ankle: bilateral and cordova: bilateral cramping 5 years Worsened in recent months: Yes standing elevating extremities, compression stockings and exercise Reports muscle spasms of leg, edema and leg edema History of lower extremity trauma: No Superficial thrombophlebitis: No Family history of varicose veins: no Has patient had previous lower extremity venous surgery: No Patient has previously received the following treatment(s) for lower extremity varicose veins: Reports none Does patient have a history of : not applicable Has patient had lower extremity venous scan with relux testing: No Support hose used: Yes Problems walking or doing physical activity: Yes How does it affect you: muscle spasms Do you walk much: Yes Do you stand much: Yes Review of Systems ROS Narrative Kevon Morton MD personally performed the services described in this documentation, as scribed by Myrtle Orellana RVT, RDMS in my presence and it is both accurate and complete. Myrtle Morton RVT, RDMS, am scribing for, and in the presence of, Dr. Kevon Simmons and in the presence of the patient. Status of ROS 10 or more systems reviewed and unremark able except as noted in history and below Cardiovascular Reports: edema Integumentary/Breast Reports: changes in skin color Hematologic/Lymphatic Reports: easy bleeding [facility] Medical History (Updated 04/26/24 @ 16:29 by Errol Trujillo) Phlebitis and thrombophlebitis of superficial vessels of right lower extremity ?I80.01 - Phlebitis and thrombophlebitis of superficial vessels of right l ower extremity (ICD-10) Superficial thrombophlebitis of left leg ?I80.02 - Phlebitis and thrombophlebitis of superficial vessels of left lower extremity (ICD-10) Rotator cuff arthropathy ?M12.819 - Other specific arthropathies, not elsewhere classified, unspecified shoulder (ICD-10) Lung nodule ?R91.1 - Solitary pulmonary nodule (ICD-10) Hypertension ?I10 - Essential (primary) hypertension (ICD-10) Pain due to varicose veins of both lower extremities ?I83.813 - Varicose veins of bilateral lower extremities with pain (ICD-10) Surgical History (Updated 04/27/24 @ 13:21 by Errol Trujillo) Status post laser ablation of incompetent vein ?Z98.890 - Other specified postprocedural states (ICD-10) Status post laser ablation of incompetent vein ?Z98.890 - Other specified postprocedural states (ICD-10) H/O nasal septoplasty ?Z98.890 - Other specified postprocedural states (ICD-10) Family History (Updated 03/22/24 @ 10:24 by Errol Trujillo) Other Alzheimer dementia Family history of cancer Social History (Updated 03/22/24 @ 10:25 by Errol Trujillo) Within the past year, how often did you have a drink containing alcohol: 2-3 times a week Smoking status: Former smoker Non-prescribed substance use: denies use Meds Home Medications and Allergies Home Medications ?Medication ?Instructions ?Recorded ?Confirmed ?Type atorvastatin 20 mg tablet 20 mg PO DAILY 03/22/24 03/22/24 History levothyroxine 75 mcg tablet 75 mcg PO DAILY 03/22/24 03/22/24 History (Synthroid) losartan 25 mg tablet 25 mg PO DAILY 03/22/24 03/22/24 History cephalexin 500 mg capsule 500 mg PO BID 05/04/24 05/04/24 History Allergies Allergy/AdvReac Type Severity Reaction Status Date / Time No Known Drug Allergies Allergy Verified 03/22/24 10:27 Exam Narrative Exam Narrative: Patient complains of redness, warmth, and tenderness to medial aspect of left lower leg. Dr. Simmons prescribed Keflex 500mg BID for 10 days. Kevon Morton MD personally performed the services described in this documentation, as scribed by Myrtle Orellana RVT, RDMS in my presence and it is both accurate and complete. Myrtle Morton RVT, RDMS, am scribing for, and in the presence of, Dr. Kevon Simmons and in the presence of the patient. Results Imaging Venous US: Radiologist's impression: The ultrasound demonstrates Heat induced thrombus visualized 2.2cm from the SFJ. The heat induced thrombus extends from groin to distal calf. Assessment and Plan Assessment and Plan (1) Phlebitis and thrombophlebitis of superficial vessels of right lower e xtremity: Plan Patient in today for follow up ultrasound of lower extremity following treatment of EVLT of right leg GSV completed on 04/27/24. IKevon MD personally performed the services described in this documentation, as scribed by Myrtle Orellana RVT, RDMS in my presence and it is both accurate and complete. Myrtle Morton RVT, RDMS, am scribing for, and in the presence of, Dr. Kevon Simmons and in the presence of the patient.
--- NOTE | 2024-05-04 08:13 | W.VEIN ---
Discharge Plan Discharge Disposition: Home, Self-Care Outpatient Diagnostics: VC Endovenous Ablation 1VeinLT (Routine) Timeframe: 2 Weeks Facility: [facility] - Location: [facility] Ordered By: Kevon Simmons Plan of Treatment: EVLT of left leg SSV. Print Language: Hungarian Discharge Date/Time: 05/04/24 15:15
--- NOTE | 2024-05-04 14:52 | VEIN_ITS ---
Patient Name: SHASHI SAAB MR#: [id number] : 1960 Exam Date: 05/04/2024 Ordering Doctor: DR LYNNE CUETO M.D. RADIOLOGY REPORT PROCEDURE: VC EXT VENOUS RT LMTD COMPARISON: None. INDICATIONS: I80.01 - Phlebitis and thrombophlebitis of superficial ve... TECHNIQUE: Lower extremity michelle scale and Duplex Doppler evaluation of the deep venous system from the inguinal ligament through the calf veins. FINDINGS: REGION: Right lower extremity. THROMBI: Negative for DVT. Heat induced thrombus visualized 2.2cm from the SFJ. The heat induced thrombus extends from groin to distal calf. COMPRESSIBILITY: Non-compressible segments corresponding to thrombus FLOW: Areas of no flow corresponding to thrombus OTHER: CONCLUSION: 1. Successful post ablation occlusion of right great saphenous vein. Dictated by: Kevon Simmons M.D. on 05/04/2024 at 15:22 Approved by: Kevon Simmons M.D. on 05/04/2024 at 15:23
--- NOTE | 2024-05-04 14:52 | VEIN_ITS ---
Patient Name: SHASHI SAAB MR#: [id number] : 1960 Exam Date: 05/04/2024 Ordering Doctor: DR LYNNE CUETO M.D. RADIOLOGY REPORT PROCEDURE: [facility] EST LMTD [facility] - OFFICE VISIT FOLLOW UP [facility] PROGRESS NOTES: The patient reports improvement in leg symptoms. There has been interval reduction in varicosities. The patient has followed our recommendations to walk 20-30 minutes once or twice per day since the procedure. Physical exam demonstrates decrease in varicosities of the leg. Persistent varicosities are identified along the legs bilaterally. Area of erythema and warmth to the touch involving the distal medial right calf. Review of the ultrasound performed the same day demonstrates occlusive thrombus extending throughout the treated vein(s), see separate report, consistent with a successful ablation. No thrombus extending into or beyond the saphenofemoral junction. The patient expressed a desire to proceed with treatment of remaining incompetent varicosities. The patient was informed that treatment was a process and would require several procedures/sessions. VEIN/[facility] LMTD IMPRESSION: 1. Successful ablation of the right great saphenous vein(s). 2. Persistent varicose veins and lower extremity symptoms. 3. Area of erythema and warm to the touch involving the distal medial right calf concerning for infection. As a precautionary measure patient will be placed on Keflex. PLAN: 1. Patient placed on Keflex 500 mg twice a day for 10 days. 2. Endovenous laser ablation of left small saphenous vein. Nurse notes, history and physical were reviewed and confirmed, see attached forms. The nurse was present throughout the physical exam and consultation Dictated by: Kevon Simmons M.D. on 05/04/2024 at 15:23 Approved by: Kevon Simmons M.D. on 05/04/2024 at 15:27
--- OUTSIDE RECORDS SUMMARY | 2024-05-04 14:55 | XMS_ITS | CCD ---
Author Organization [facility] Care Team Providers Care Bridge Mechanic Name Role Phone THAIS WRIGHT Unavailable Unavailable MIGUEL DIALLO Unavailable Unavailable THAIS WRIGHT Unavailable Unavailable Yuval Ciara Primary Care Provider Elder Goodman Primary Care Provider [phone] Beitler III, PA-C, Ciara Mich Primary Care [...] BOWERS PA-C, Ciara Epps Primary Care Unavailable Shayne HERNANDEZ, Eduardo Powell Attending Unavailadelia Walker III, PA-C, Ciara Epps Primary Care Unavailable Priscilla ALMEIDA, Carolyn Timmons Attending Harper Walker PA-C, Ciara Primary Care Provider Mino Pickens Primary Care Physician Unavailab Ilan Oconnor Unavailable Unavailab CIARA Power Primary Care Unavailable CIARA WALKER Referring Unavailable CIARA WALKER Attending Unavailable CIARA WALKER Referring Unavailable CIARA WALKER Primary Care Unavailable CIARA WALKER Primary Care Unavailable Sarah Navarro Attending Unavailable CIARA WALKER Referring Unavailable CIARA WALKER Primary Care Unavailable Medications Current Medications Medication Drug Class(es) Dates Sig (Normalized) Sig (Original) [id number] 200 actuat albuterol 0.09 mg/actuat metered dose inhaler (9 sources) beta2-Adrenergic Agonist Start: 09-14-2023 take 2 [...] inhalation route every 4-6 hours as needed aspirin 81 mg delayed release oral tablet (15 sources) Platelet Aggregation Inhibitor, Nonsteroidal Anti-inflammatory Drug take 1 tablet by mouth once daily aspirin 81 MG EC tablet Take 1 tablet by mouth daily Active ubidecarenone 200 mg oral capsule (15 sources) Coenzyme Q10 (CO Q10) 200 MG CAPS Take by mouth Active End: 03-28-2024 take 1 capsule by mouth once daily CoQ-10 30 mg oral capsule 03/28/2024 take 1 capsule by oral route daily hydroCHLOROthiazide 25 mg / losartan potassium 100 [...] daily hydroxychloroquine sulfate 200 mg oral tablet (16 sources) Antimalarial, Antirheumatic Agent Start: 12-14-2017 hydroxychloroquine (PLAQUENIL) 200 mg tablet sildenafil 50 mg oral tablet (9 sources) Phosphodiesterase 5 Inhibitor Start: 02-11-2024 take [...] 02/20/2020 Active timolol 2.5 mg/ml ophthalmic solution (9 sources) beta-Adrenergic Khadra Start: 02-10-2022 take 1 drop(s) into the eye(s) once daily in the morning timolol (TIMOPTIC) 0.25 % ophthalmic solution Place 1 drop into the right eye every morning 02/10/2022 Active triamcinolone acetonide 1 mg/ml topical cream (9 sources) Corticosteroid Start: 02-24-2024 triamcinolone (KENALOG) 0.1 [...] every 6 hours as needed for pain Balance of Nature Fruits (6 sources) Balance [...] 01/19/2013 05/19/2013 take 1 capsule twice daily CoQHeart with Q-Trol (6 sources) CoQHeart with Q-Trol take 1 cap daily docusate sodium 100 mg oral capsule (6 sources) take 1 capsule by mouth once daily as needed Stool Softener 100 mg oral capsule take 1 capsule (100 mg) by oral route once daily PRN doTERRA MetaPWR (6 sources) doTERRA MetaPWR take 1 cap daily levothyroxine sodium 0.175 mg oral tablet (19 sources) l-Thyroxine Start: 03-06-2024 take 1 tablet by mouth once daily 30 minutes before breakfast Synthroid 175 mcg tablet 03/27/2024 take 1 tablet (175 mcg) by oral route once daily on an empty stomach 30 minutes before breakfast Start: 01-23-2021 take 1 tablet by cara [...] Documented Date Episodic/Chronic Disorders of lipid metabolism (18 sources) Hyperlipidemia; Translations: [Other hyperlipidemia] Onset: 02-07-2020 02-07-2020 Chronic Esophageal disorders (6 sources) Gastroesophageal reflux disease; Translations: [Gastro-esophageal reflux disease without esophagitis] Onset: 02-07-2020 02-07-2020 Chronic Essential hypertension (12 sources) Essential (primary) hypertension Chronic Osteoarthritis (6 sources) Osteoarthrosis, unspecified whether generalized or localized, lower leg Onset: 01-19-2013 Chronic Other connective tissue disease (1 source) Diastasis recti; Translations: [Separation of muscle (nontraumatic), other site] Episodic Other inflammatory condition of skin (6 sources) Discoid lupus erythematosus; Translations: [Discoid lupus [...] conditions (not mental disorders or infectious disease) (3 sources) Patient encounter status; Translations: [Encounter for screening for malignant neoplasm of respiratory organs] Onset: 03-14-2024 03-14-2024 Episodic Other skin disorders (2 sources) Redundant skin; Translations: [Excessive and redundant skin and subcutaneous tissue] Episodic Residual codes; unclassified (1 source) Nicotine-filled electronic cigarette user; Translations: [Tobacco use] Episodic Screening and history of mental health and substance abuse codes (9 sources) Ex-smoker; Translations: [Tobacco use and exposure - finding] Onset: 03-14-2024 03-14-2024 Episodic Thyroid disorders (18 sources) Hypothyroidism; Translations: [Hypothyroidism, unspecified] Onset: 02-07-2020 02-07-2020 Chronic Varicose veins of lower extremity (2 sources) Ruptured varicose veins; Translations: [Varicose veins of unspecified lower extremity with other complications] Onset: 03-13-2024 03-13-2024 Episodic Past or Other Problems Problem Classification Problem Date Documented Da te Episodic/Chronic Hypertension with complications and secondary hypertension (6 sources) Secondary hypertension; Translations: [Secondary hypertension, unspecified] Onset: 02-07-2020 Resolved: 02-25-2022 02-07-2020 Chronic Other and unspecified benign neoplasm (3 sources) Hyperplastic polyp of intestine; Translations: [Polyp of colon] Onset: 02-18-2021 02-18-2021 Episodic Spondylosis; intervertebral disc disorders; other back problems (6 sources) Backache, unspecified Onset: 01-19-2013 Episodic Unclassified (3 sources) Onset: 03-06-2024 03-06-2024 Results Test Name Value Interpretation Reference Range Facility TSH Reflex FT4on 04-28-2024 TSH 2.760 mIU/mL Normal 0.470-4.680 [facility] Comment on above: Performed By: #### O [id number] #### [place] [address] Ph. [phone] TSH with Reflexon 04-28-2024 TSH Qn 2.760 m[IU]/L [facility] No Panel Informationon 03-28 Tobacco smoking status Current Tobacco User Invalid Interpretation Code [facility] CT Chest for screeningon Mild centrilobular emphysema [...] the chest in 3 months is recommended. [facility] RIS CONSOLIDATED EXAMINATION: CT LUNG SCREENING (INITIAL/ANNUAL) [...] Report electronically signed by: Dr. Miguel An [facility] Miguel Gonzales MD - 03/14/2024 EXAMINATION: CT LUNG SCREENING [...] thoracic spine. Report electronically signed by: Dr. Peter Knabe IMPRESSION: Mild centrilobular emphysema and mild peribronchial [...] the chest in 3 months is recommended. [facility] Work Phone: Radiology Study observation (narrative) [facility] Work Phone: CT Chest for screeningOrdere d By: Miguel An on 03-14-2024 [facility] CT LUNG SCREENING (INITIAL/A NNUAL)on 03-14-2024 CT [...] Miguel An MD 03/14/24 Final result Normal [facility] Complete Blood Count with Au to Diffon 03-06-2024 Basophils (Bld) [#/Vol] 0.1 10*3/uL Normal 0.0-0.1 [facility] Comment on above: Performed By: #### C BCAD #### [place] [address] Ph. [phone] Basophils/100 WBC (Bld) 1 % Normal 0-1 [facility] Comment on above: Performed By: #### C BCAD #### [place] [address] Ph. [phone] Eosinophils (Bld) [#/Vol] 0.3 10*3/uL Normal 0.0-0.5 [facility] Comment on above: Performed By: #### C BCAD #### [place] [address] Ph. [phone] Eosinophils/100 WBC (Bld) 4 % Normal 0-5 [facility] Comment on above: Performed By: #### C BCAD #### [place] [id number] Ph. [phone] Erythrocyte distribution width (RBC) [Ratio] 12 % Normal 11.5-14.5 [facility] Comment on above: Performed By: #### C BCAD #### [place] [address] Ph. [phone] Hematocrit (Bld) [Volume fraction] 40.2 % Low 42.0-52.0 [facility] Comment on above: Performed By: #### C BCAD #### [place] [address] Ph. [phone] Hemoglobin (Bld) [Mass/Vol] 13.8 g/dL Normal 13.5-17.5 [facility] Comment on above: Performed By: #### C BCAD #### [place] [address] Ph. [phone] Lymphocytes (Bld) [#/Vol] 2.5 10*3/uL Normal 1.0-4.0 [facility] Comment on above: Performed By: #### C BCAD #### [place] [address] Ph. [phone] Lymphocytes/100 WBC (Bld) 38 % Normal 20-40 [facility] Comment on above: Performed By: #### C BCAD #### [place] [address] Ph. [phone] MCH (RBC) [Entitic mass] 32.2 pg Normal 27.0-35.0 [facility] Comment on above: Performed By: #### C BCAD #### [place] [address] Ph. [phone] MCHC (RBC) [Mass/Vol] 34.3 g/dL Normal 32.0-36.0 [facility] Comment on above: Performed By: #### C BCAD #### [address] [address] Ph. [phone] MCV (RBC) [Entitic vol] 93.7 fL Normal 80.0-100.0 [facility] Comment on above: Performed By: #### C BCAD #### [place] [id number] Ph. [phone] Monocytes (Bld) [#/Vol] 0.5 10*3/uL Normal 0.3-1.0 [facility] Comment on above: Performed By: #### C BCAD #### [place] [address] Ph. [phone] Monocytes/100 WBC (Bld) 8 % Normal 1-15 [facility] Comment on above: Performed By: #### C BCAD #### [address] [address] Ph. [phone] Neutrophils (Bld) [#/Vol] 3.1 10*3/uL Normal 1.8-7.7 [facility] Comment on above: Performed By: #### C BCAD #### [place] [id number] Ph. [phone] Neutrophils/100 WBC (Bld) 48 % Low 50-70 [facility] Comment on above: Performed By: #### C BCAD #### [address] [address] Ph. [phone] Platelet mean volume (Bld) [Entitic vol] 10.1 fL Normal 9.4-12.3 [facility] Comment on above: Performed By: #### C BCAD #### [place] [id number] Ph. [phone] Platelets (Bld) [#/Vol] 249 10*3/uL Normal 150-450 [facility] Comment on above: Performed By: #### C BCAD #### [address] [address] Ph. [phone] RBC (Bld) [#/Vol] 4.29 10*6/uL Low 4.70-6.[address] [facility] Comment on above: Performed By: #### C BCAD #### [address] [address] Ph. [phone] WBC (Bld) [#/Vol] 6.4 10*3/uL Normal 3.7-11.0 [facility] Comment on above: Performed By: #### C BCAD #### [address] [address] Ph. [phone] Comprehensive Metabolic Pane nain 03-06-2024 Albumin [Mass/Vol] 5.2 g/dL High 3.5-5.0 [facility] Comment on above: Performed By: #### F T4, CMP, [id number], LIPD, PSA #### [address] [address] Ph. [phone] ALP [Catalytic activity/Vol] 58 U/L Normal 38-126 [facility] Comment on above: Performed By: #### F T4, CMP, [id number], LIPD, PSA #### [address] [address] Ph. [phone] ALT [Catalytic activity/Vol] 35 U/L Normal 0-50 [facility] Comment on above: Performed By: #### F T4, CMP, [id number], LIPD, PSA #### [address] [address] Ph. [phone] AST [Catalytic activity/Vol] 46 U/L Normal 17-59 [facility] Comment on above: Performed By: #### F T4, CMP, [id number], LIPD, PSA #### [place] [address] Ph. [phone] Bilirubin [Mass/Vol] 0.5 mg/dL Normal 0.2-1.3 [facility] Comment on above: Performed By: #### F T4, CMP, [id number], LIPD, PSA #### [place] [address] Ph. [phone] Calcium [Mass/Vol] 9.9 mg/dL Normal 8.4-10.2 [facility] Comment on above: Performed By: #### F T4, CMP, [id number], LIPD, PSA #### [place] [address] Ph. [phone] Chloride [Moles/Vol] 89 mmol/L Low 98-107 [facility] Comment on above: Performed By: #### F T4, CMP, [id number], LIPD, PSA #### [place] [address] Ph. [phone] CO2 [Moles/Vol] 34 mmol/L High 22-32 [facility] Comment on above: Performed By: #### F T4, CMP, [id number], LIPD, PSA #### [place] [address] Ph. [phone] Creatinine [Mass/Vol] 0.62 mg/dL Low 0.66-1.25 [facility] Comment on above: Performed By: #### F T4, CMP, [id number], LIPD, PSA #### [place] [address] Ph. [phone] GFR/1.73 sq M.predicted among non-blacks MDRD (S/P/Bld) [Vol rate/Area] 106 mL/min/{1.73_m2} Normal >60 [facility] Comment on above: Result Comment: GFR calculated using CKD-EPI (2020) formula.\X0D0A\Stage 1 Kidney damage (e.g., protein in the urine) with normal GFR >=90\X0D0A\Stage 2 Kidney damage with mild decrease in GFR 60-89\X0D0A\Stage 3a Moderate decrease in GFR 45-59\X0D0A\Stage 3b Moderate decrease in GFR 30-44\X0D0A\Stage 4 Severe reduction in GFR 15-29\X0D0A\Stage 5 Kidney failure <15 Performed By: #### F T4, CMP, [id number], LIPD, PSA #### [place] [address] Ph. [phone] Glucose [Mass/Vol] 81 mg/dL Normal 65-100 [facility] Comment on above: Performed By: #### F T4, CMP, [id number], LIPD, PSA #### [place] [address] Ph. [phone] Potassium [Moles/Vol] 4.4 mmol/L Normal 3.6-5.0 [facility] Comment on above: Performed By: #### F T4, CMP, [id number], LIPD, PSA #### [place] [address] Ph. [phone] Protein [Mass/Vol] 7.9 g/dL Normal 6.3-8.2 [facility] Comment on above: Performed By: #### F T4, CMP, [id number], LIPD, PSA #### [place] [id number] Ph. [phone] Sodium [Moles/Vol] 132 mmol/L Low 135-145 [facility] Comment on above: Performed By: #### F T4, CMP, [id number], LIPD, PSA #### [place] [address] Ph. [phone] Urea nitrogen [Mass/Vol] 9 mg/dL Normal 9-20 [facility] Comment on above: Performed By: #### F T4, CMP, [id number], LIPD, PSA #### [place] [id number] Ph. [phone] Free T4on 03-06-2024 Free T4 [Mass/Vol] 1.33 ng/dL Normal 0.78-2.19 [facility] Comment on above: Performed By: #### F T4, CMP, [id number], LIPD, PSA #### [place] [id number] Ph. [phone] Lipid Panelon 03-06-2024 Cholesterol [Mass/Vol] 180 mg/dL Normal 100-200 [facility] Comment on above: Result Comment: <200 mg/dL is recommended cholesterol level. Performed By: #### F T4, CMP, [id number], LIPD, PSA #### [place] [id number] Ph. [phone] Cholesterol in HDL [Mass/Vol] mg/dL Normal >40 [facility] Comment on above: Performed By: #### F T4, CMP, [id number], LIPD, PSA #### [address] [address] Ph. [phone] Cholesterol in LDL [Mass/Vol] 51 mg/dL Normal 20-100 [facility] Comment on above: Performed By: #### F T4, CMP, [id number], LIPD, PSA #### [address] [address] Ph. [phone] Cholesterol.total/Ch olesterol in HDL [Mass ratio] 2 {ratio} Normal 1-5 [facility] Comment on above: Performed By: #### F T4, CMP, [id number], LIPD, PSA #### [address] [address] Ph. [phone] Triglyceride [Mass/Vol] 97 mg/dL Normal 10-150 [facility] Comment on above: Performed By: #### F T4, CMP, [id number], LIPD, PSA #### [place] [address] [place] [address] Ph. [phone] TSH Reflex FT4on 03-06-2024 TSH 5.090 mIU/mL High 0.470-4.680 [facility] Comment on above: Performed By: #### F T4, CMP, [id number], LIPD, PSA #### [place] [address] [place] [address] Ph. [phone] Otolaryngology Office/Clinic Noteon 03-08-2023 Otolaryngology Office/Clinic Note [...] [place] [address]-74, 926[address], [place] [address] to discuss with his insurance company to see what his [id number] expense would be. We did discuss the [...] surgery without patient-specific risk Follow-up level 4 [id number] added for otic microscopy use Physician Comments [...] Electronically s (more content not included)... Normal [facility] Otolaryngology Office/Clinic Noteon 02-25-2023 Otolaryngology Office/Clinic Note Chief Complaint surgical consult History of Present Illness Patient presents to me today upon referral from [facility] for evaluation of bilateral chronic otitis media [...] today, i (more content not included)... Normal [facility] Otolaryngology Office/Clinic Noteon 01-05-2023 Otolaryngology Office/Clinic [...] Carolyn Wells PA-C 01/10/23 23:30 EDT Normal [facility] Otolaryngology Office/Clinic Noteon 12-15-2022 Otolaryngology Office/Clinic [...] mL, 0 Refill(s), 12/25/22 8:54:00 EDT, Pharmacy: [facility] 2. Dysfunction of both eustachian tubes [...] Tobacco Former (more content not included)... Normal [facility] Audiology Office/Clinic Note on 03-31-2022 Audiology Office/Clinic Note History Patient was seen today for a hearing test and aided testing. He was referred by his PCP - ELLE Walker for testing required for his [facility] certification. Patient is a hearing aid [...] by Heather Tariq 03/31/22 16:59 EST Normal [facility] SURGICALon 02-04-2021 SURGICAL [facility] SHASHI PEREZ [id number] Assoc. Page 1 of [address] [place] [address] PROC: 02/04/2021 [facility] RECV: 02/06/[address]21 [address] [facility] RPTD: 02/07/2021 [place] [address] LOC: [facility] ACCT: [id number] SEX: M : 1960 AGE: 60 Y PATHOLOGY REPORT ATTN: MIGUEL DIALLO REQ: MIGUEL DIALLO Copies To: CIARA WALKER Clinical Information: SCREENING COLONOSCOPY FINAL DIAGNOSIS: Sigmoid colon polyp, biopsy: Hyperplastic polyp. Specimen: BIOPSY OF SIGMOID COLON, POLYP Gross Examination: The container is labeled Shashi Sorg, sigmoid polyp. Received in formalin are three bits of mendoza soft tissue varying in size from 3 mm up to 4 mm. 1 ns. MTK/DKR:[id number] Microscopic Examination: Microscopic examination performed. [id number] LATANYA STEPHENSON M.D., F.C.A.P [facility]/ [place] Printed on: 02/07/[address] [place] [address] Original print date: 02/07/2021 Normal [facility] CT LUNG SCREENINGon 06-11-19 21 1. No acute cardiopulmonary process or convincing evidence of new pulmonary malignancy. 2. Sequela of old healed granulomatous disease again identified. L-RAD 1 No findings or minor findings; benign nodules. RECOMMENDATIONS: Annual LDCT screening for 2 years and suggest annual LDCT until patient no longer eligible for definitive treatment. [place], [place] EXAMINATION: CT LUNG SCREENING (INITIAL/ANNUAL) 06/11/2020 [...] Report electronically signed by: Dr. Zana Galarza [place], [place] Karen Goncalves Radiant Results From [facility] [...] patient no longer eligible for definitive treatment. [place] ALT, [facility] 0 ALT [Catalytic activity/Vol] 51 U/L High 0 - 50 U/L [place] AST, [facility] 0 AST [Catalytic activity/Vol] 52 U/L 17 - 59 U/L [place] Basic Metabolic Panel, [facility] 03-21-2020 Calcium [Mass/Vol] 9.1 mg/dL 8.4 - 10. 2 mg/dL [place] Chloride [Moles/Vol] 99 mmol/L [place], [place] CO2 [Moles/Vol] 31 mmol/L [place], [place] Creatinine [Mass/Vol] 0.66 mg/dL 0.66 - 1.25 mg/dL [place] GFR/1.73 sq M predicted among non-blacks MDRD (S/P/Bld) [Vol rate/Area] 104 mL/min/{1.73_m2} >60 mL/min/1.73m2 [place] Comment on above: Stage 1 Kidney damage (e.g., protein in the urine) with normal GFR >=90 Stage 2 Kidney damage with mild decrease in GFR 60-89 Stage 3a Moderate decrease in GFR 45-59 Stage 3b Moderate decrease in GFR 30-44 Stage 4 Severe reduction in GFR 15-29 Stage 5 Kidney failure <15 Glucose [Mass/Vol] 90 mg/dL 65 - 100 mg/dL [place] Potassium [Moles/Vol] 4.3 mmol/L [place] Sodium [Moles/Vol] 141 mmol/L [place] Urea nitrogen [Mass/Vol] 13 mg/dL 9 - 20 mg/dL [place] CBC, [facility] 0 Erythrocyte distribution width (RBC) [Ratio] 11.9 % 11.5 - 14.5 % [place] Hematocrit (Bld) [Volume fraction] 40.4 % Low 42 - 52 % [place] Hemoglobin (Bld) [Mass/Vol] 13.6 g/dL 13.5 - 17.5 g/dL [place] Interpretation and review of laboratory results Abnormal [place] MCH (RBC) [Entitic mass] 32.1 pg 27 - 35 pg [place] MCHC (RBC) [Mass/Vol] 33.7 g/dL 32 - 36 g/dL [place] MCV (RBC) [Entitic vol] 95 fL 80 - 100 fL [place] Platelet mean volume (Bld) [Entitic vol] 9.8 fL 9.4 - 12.3 fL [place] Platelets (Bld) [#/Vol] 169 10*3/uL [place] RBC (Bld) [#/Vol] 4.24 10*6/uL Low [place] WBC (Bld) [#/Vol] 4.3 10*3/uL [place] Ordered by [facility] UNSPECIFIED [place] Free T4, [facility] 03-21 Free T4 [Mass/Vol] 1.01 ng/dL 0.78 - 2. 19 ng/dL [place] Ordered [place] Hemoglobin A1c, [facility] 03-21-2020 Glucose [Mass/Vol] 76.5 mg/dL [place] Comment on above: Estimated Average Glucose is a caluculated value from Hemoglobin A1C and is customer care representative of the average blood glucose level in the last 2-3 month period. HbA1c (Bld) [Mass fraction] 4.9 % 4 - 6 % [place] Comment on above: [place] [employer] guidelines indicate that patients with HgbA1C in the range of 5.7-6.4% are at increased risk for development of diabetes, and intervention by lifestyle modification may be beneficial. HgbA1C greater than or equal to 6.5% is considered diagnostic of diabetes. Ordered by [place], [place] Lipid Panel, [facility] 1 05-21-2019 Cholesterol [Mass/Vol] 175 mg/dL 100 - 200 mg/dL [place] Comment on above: <200 mg/dL is recommended cholesterol level. Cholesterol in HDL [Mass/Vol] 83 mg/dL >40 [place] Cholesterol in LDL [Mass/Vol] 57 mg/dL 20 - 100 mg/dL [place] CHOLESTEROL/HDL RELATIVE RISK 2 [place] Triglyceride [Mass/Vol] 174 mg/dL High 10 - 150 mg/dL [place] Otheron 03-21-2020 Ordered [place] Interpretation and review of laboratory results Abnormal [place] Ordered [place] PSA Screen, [facility] PSA, TOTAL 0.96 ng/mL 0 - 4 ng/mL [place] Comment on above: [facility] UTILIZES [employer] PSA METHODOLOGY. DIFFERENT TEST METHODS CANNOT BE USED INTERCHANGEABLY. PSA RESULTS IN A GIVEN PATIENT SAMPLE DETERMINED WITH DIFFERENT TESTS AND FROM DIFFERENT MANUFACTURERS CAN VARY DUE TO DIFFERENCES IN TEST METHODS AND REAGENTS. TSH, [facility] 0 TSH Qn 4.420 m[IU]/L Cindi Alcantar h- [place], [place] Laboratory - Chemistry and C hemistry - challengeon 01-19-2013 25-hydroxyvitamin D3 [Mass/Vol] 30.7 ng/mL Invalid Interpretation Code 30.0-100.0 [facility] [Catalytic activity/Vol] 271.0 U/L Invalid Interpretation Code 24-194 [employer] CRP [Mass/Vol] 4.9 mg/L Invalid Interpretation Code 0.0-4.9 [facility] TSH Qn 1.70 m[IU]/L Invalid Interpretation Code 0.50-4.00 [facility] - Hematology and Cell countson 01-19-2013 ESR (Bld) [Velocity] 10 mm/h Invalid Interpretation Code 0-20 [facility] Vital Signs Date Time Vital Sign Value Performing Clinician Facility 03-28-2024 14:55-0500 SaO2% (BldA) [Mass fraction] 99 % [facility] 03-28-2024 14:11-0500 Body height 177.8 cm [facility] 03-28-2024 14:11-0500 Body mass index (BMI) [Ratio] 28.98 kg/m2 [facility] 03-28-2024 14:11-0500 Body surface area Derived from formula 2.13 m2 [facility] 03-28-2024 14:11-0500 Body temperature 98.2 [degF] [facility] 03-28-2024 14:11-0500 Body weight 91.63 kg [facility] 11-19-2024 14:11-0500 Diastolic blood pressure 70 mm[Hg] Mino Pickens [employer] 03-28-2024 14:11-0500 Heart rate 64 /min Mino Pickens [employer] 03-28-2024 14:11-0500 Respiratory rate 16 /min Mino Pickens [facility] 03-28-2024 14:11-0500 Systolic blood pressure 134 mm[Hg] [facility] [employer] 03-13-2024 08:14-0500 SaO2% (BldA) [Mass fraction] 99 % Sarah Navarro MD Work Phone: [facility] 03-13-2024 08:05-0500 Body height 175.3 cm Sarah Navarro MD Work Phone: [facility] 03-13-2024 08:05-0500 Body mass index (BMI) [Ratio] 28.35 kg/m2 Sarah Navarro MD Work Phone: [facility] 03-13-2024 08:05-0500 Body temperature 98.71 [degF] Sarah Navarro MD Work Phone: [facility] 03-13-2024 08:05-0500 Body weight 87.09 kg Sarah Navarro MD Work Phone: [facility] 03-13-2024 08:05-0500 Diastolic blood pressure 72 mm[Hg] Sarah Navarro MD Work Phone: [facility] 03-13-2024 08:05-0500 Heart rate 69 /min Sarah Navarro MD Work Phone: [facility] 03-13-2024 08:05-0500 Respiratory rate 16 /min Sarah Navarro MD Work Phone: [facility] 03-13-2024 08:05-0500 Systolic blood pressure 167 mm[Hg] Sarah Navarro MD Work Phone: [facility] 10-09-2021 09:10-0400 Body weight 83.69 kg Jesu Bethea II, MD Work Phone: [facility] 03-26-2021 10:39-0500 Body weight 88.56 kg Aida Conigy PA-C Work Phone: [facility] 03-26-2021 10:39-0500 Diastolic blood pressure 79 mm[Hg] Aida Conigy PA-C Work Phone: [facility] 03-26-2021 10:39-0500 Heart rate 68 /min Aida Conigy PA-C Work Phone: [facility] 03-26-2021 10:39-0500 SaO2% (BldA) [Mass fraction] 98 % Aida Conigy PA-C Work Phone: [facility] 03-26-2021 10:39-0500 Systolic blood pressure 135 mm[Hg] Aida Conigy PA-C Work Phone: [facility] 01-19-2013 13:09-0400 Body height 181.61 cm [facility] 01-19-2013 13:09-0400 Body mass index (BMI) [Ratio] 38.51 kg/m2 [facility] 01-19-2013 13:09-0400 Body surface area Derived from formula 2.53 m2 [facility] 01-19-2013 13:09-0400 Body weight 127.01 kg resmio 01-19-2013 13:09-0400 Diastolic blood pressure 86 mm[Hg] res[facility]io 01-19-2013 13:09-0400 Heart rate 84 /min res[facility]io 01-19-2013 13:09-0400 Systolic blood pressure 134 mm[Hg] Mino Pickens [facility] Encounters Encounter Date Encounter Type Care Provider Facility Start: 04-28-2024 [facility] Start: 04-28-2024 End: 04-28-2024 Subsequent hospital visit by physician Ciara Walker PA-C Work Phone: [facility] Laboratory Comment on above: Abnormal thyroid fun ction test Start: 03-28-2024 Office outpatient ne w 60 minutes Mino Pickens Other [facility] Start: 03-14-2024 End: 03-16-2024 Subsequent hospital visit by physician Ciara Walker PA-C Work Phone: [facility] CT Scan Comment on above: Screening for lung c ancer; History of tobacco use Start: 03-14-2024 [facility] Start: 03-13-2024 End: 03-13-2024 Emergency department patient visit Sarah Navarro MD Work Phone: [facility] Emergency Department Comment on above: 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) Start: 03-06-2024 [facility] Start: 03-17-2023 ambulatory Ciara Theodor e Beitler III PA-C Facility:[facility] Start: 03-08-2023 End: 03-09-2023 ambulatory Ciara Mich Beitler III PA-C Facility[facility] Start: 03-02-2023 ambulatory Ciara Theodor e Beitler III PA-C Facility:[facility] Start: 02-25-2023 ambulatory Spencer Sorensen caro PA-C Facility:[facility] Start: 02-25-2023 End: 02-26-2023 ambulatory Ciara Mich Beitler III PA-C Facility[facility] Start: 01-05-2023 End: 01-06-2023 ambulatory Ciara Mich Beitler III PA-C Facility[facility] Start: 12-15-2022 End: 12-16-2022 ambulatory Ciara Mich Beitler III PA-C Facility:[facility] Start: 03-31-2022 End: 04-01-2022 ambulatory Ciara Walker III PA-C Facility[facility] Start: 10-09-2021 End: 10-09-2021 Orders Only Thais Kim [facility] Comment on above: Rectus diastasis of lower abdomen (Primary Dx) Start: 10-09-2021 End: 10-09-2021 Office outpatient visit 15 minutes Jesu Bethea MD Work Phone: [facility] Comment on above: Redundant skin of ab domen (Primary Dx); Recent weight loss; Intertrigo; Nicotine vapor product user Start: 04-24-2021 End: 12-14-[address] LYNNE CUETO Facility:[facility] Start: 03-26-2021 End: 03-26-2021 ambulatory AIDA BENÍTEZ [facility] Start: 03-26-2021 End: 03-26-2021 Office consultation new/estab patient 30 min Aida COVINGTONC Work Phone: [facility] Comment on above: Redundant skin of ab domen (Primary Dx); Recent weight loss Start: 07-11-2020 End: 07-11-2020 Orders Only Barby Castro Work Phone: [facility] Start: 06-11-2020 End: 06-13-2020 Subsequent hospital visit by physician [facility] Ct/Pet Room [facility] Scan Comment on above: Ex-smoker Start: 05-28-2020 End: 05-28-2020 Subsequent hospital visit by physician Opal Don Work Phone: [facility] Audiology Start: 03-21-2020 End: 03-21-2020 Subsequent hospital visit by physician Ciara Walker [facility] Laboratory Start: 11-20-2014 End: 11-20-2014 Patient encounter procedure [facility] Start: 01-19-2013 Office Services Ilan rajan Other [facility] Office Start: 11-28-2012 End: 11-29-2012 Patient encounter procedure MIGUEL DIALLO [facility] Procedures Date Procedure Procedure Detail Performing Clinician Start: 04-28-2024 Assay of thyroid stimulating hormone tsh Ciara Walker PA-C Work Phone: Start: 03-28-2024 Ct thorax w/contrast material Mino Pickens Start: 03-28-2024 Ct thorax w/o & w/co ntrast material Mino Pickens Start: 03-28-2024 Ct thorax w/o contra st material Mino Pikcens Start: 03-14-2024 CT Chest for screening Ciara Yuval ALMEIDA Work Phone: Start: 03-06-2024 PSA screening CIARA KIDD FELIZMAURY Comment on above: Result Comment: [facility] UTILIZES [employer] PSA METHODOLOGY. DIFFERENT TEST METHODS CANNOT BE USED INTERCHANGEABLY. PSA RESULTS IN A GIVEN PATIENT SAMPLE DETERMINED WITH DIFFERENT TESTS AND FROM DIFFERENT MANUFACTURERS CAN VARY DUE TO DIFFERENCES IN TEST METHODS AND REAGENTS. Performed By: #### F T4, CMP, HIQ858, LIPD, PSA #### [place] [address] Ph. [phone] Start: 02-04-2021 Colonoscopy Sarah willard MD Work Phone: Start: 06-11-2020 CT LUNG SCREENING Petar Kiddmicha Work Phone: Start: 03-21-2020 [facility] [...] 01-19-2013 Vitamin D, 25-hydrox y measurement Mino Celio Plan of Treatment Date Care Activity Detail Author Start: 02-04-2027 Screening for malign ant neoplasm of colon [facility] Start: 03-12-2025 End: 03-12-2025 Patient encounter procedure 03/12/2025 10:30 AM EST Office Visit [facility] at [address] [id number] Ciara Walker PA-C [address] [place] [address] [phone] annual [facility] Comment on above: annual Start: 03-06-2025 Depression Screen Depression Screen [facility] Start: 03-06-2025 Lipid panel Lipids [facility] Start: 03-28-[address] chest [facility] Start: 03-14-2024 End: 03-14-2024 Patient encounter procedure 03/14/2024 8:00 AM EST Appointment [facility] Scan [address] [place] [address] Ciara Walker PA-C [address] [place] [address] [phone] [facility] [address] Scan Comment on above: Routine Start: 01-09-2024 COVID-19 Vaccine ( season) COVID-19 Vaccine ( season) [facility] Start: 08-17-2023 Abdominal aortic ane urysm screening AAA screen [facility] Start: 08-17-2023 Pneumococcal 65+ yea rs Vaccine (1 of 1 - PCV) Pneumococcal 65+ years Vaccine (1 of 1 - PCV) [facility] Start: 08-12-2023 Annual Wellness Visi t (Medicare) Annual Wellness Visit (Medicare) [facility] Start: 09-01-2021 End: 09-01-2021 Patient encounter procedure 09/01/2021 Office Visit Plastic Surgery [facility], Jesu Salazar II, MD [address] [place] [address] [facility] Start: 06-21-2021 COVID-19 Vaccine (4 - Booster for Pfizer series) COVID-19 Vaccine (4 - Booster for Pfizer series) [facility] Start: 02-25-2021 End: 02-25-2021 Office Visit 02/25/2021 Office Visit Primary Care Ciara Walker PA-C [address] [place] [address] [place] [address] [phone] [facility] Start: 01-08-2021 Influenza vaccination Sequenti al Influenza Vaccine (#1) [facility] Start: 01-01-2021 End: 01-01-2021 Appointment 01/01/2021 Appointment Audiology Opal Don, AuD [address] [place], [place] [phone] [facility] Audiology Start: 05-28-2020 End: 05-28-2020 Appointment 05/28/2020 Appointment Audiology Opal Don, AuD [address] [place], [place] [phone] [facility] Audiology Start: 01-09-2020 Influenza vaccination Flu vaccine (# 1) [facility] [place] Start: 01-09-2020 Influenza vaccinatio n given Sequential Influenza Vaccine (#1) [facility] Start: 2018 Respiratory Syncytia l Virus (RSV) or age 60 yrs+ (1 - 1-dose 60+ series) Respiratory Syncytial Virus (RSV) or age 60 yrs+ (1 - 1-dose 60+ series) [facility] Start: 2018 Respiratory Syncytia l Virus (RSV) or age 60 yrs+ (1 - Risk 60-74 years 1-dose series) Respiratory Syncytial Virus (RSV) or age 60 yrs+ (1 - Risk 60-74 years 1-dose series) [facility] Start: 2008 Administration of he rpes zoster vaccine Zoster Vaccines (1 of 2) [facility] Start: 2008 Screening for malign ant neoplasm of colon [facility] Start: 2008 Shingles Vaccine (1 of 2) Milner gles Vaccine (1 of 2) [place] Start: 08-17-2003 Screening for malign ant neoplasm of colon [facility] Start: 1977 DTaP/Tdap/Td vaccine (1 - Tdap) DTaP/Tdap/Td vaccine (1 - Tdap) [facility] Start: 1976 Hepatitis C antibody , confirmatory test Hepatitis C Screening [facility] Start: 1976 Hepatitis C screening O [facility] Start: 1974 COVID-19 Vaccine (1 of 2) COVI D-19 Vaccine (1 of 2) [facility] Start: 1973 HIV screening [facility] Start: 1970 Adolescent depressio n screening assessment Depression Screening (PHQ9) [facility] Start: 1970 Depression screening using PHQ-9 (Patient Health Questionnaire 9) score Depression Screening (PHQ-2/9) [facility] Start: 1968 Lipid panel Lipid screen [place], [place] Start: 1961 History and physical examination, annual for health maintenance Wellness Visit [facility] Start: 1958 Creatinine measurement Creatinine mo nitoring [place], [place] Start: 1958 Hepatitis C screening Hepatitis C sc reen [place], [place] Start: 1958 Potassium monitoring Potassium monit oring [place], [place] Start: 1958 Prostate specific an tigen measurement PSA Level [facility] Start: 1958 Screening for malign ant neoplasm of lung Low-dose CT Lung Cancer Screen [facility] Start: 1958 Tetanus vaccination Tetanus: Every 1 0yrs [facility] Start: 1958 TSH Qn TSH testing [place], [place] End: 10-09-[address] Abdomen Without Contrast Imaging Routine Rectus diastasis of lower abdomen 1 Occurrences starting 10/09/2021 until 10/09/2022 [facility] Work Phone: Comment on above: 1 Occurrences starti ng 10/09/2021 until 10/09/2022 Immunizations Immunization Date Immunization Notes Care Provider Kenji decker 03-06-2024 influenza, high dose seasonal, preservative-free Sraah Navarro MD Work Phone: [facility] Work Phone: 04-27-2022 zoster vaccine recombinant Sarah Navarro MD Work Phone: [facility] 04-21-2022 influenza, injectabl e, quadrivalent, preservative free Sarah Navarro MD Work Phone: [facility] Work Phone: 02-23-2022 zoster vaccine recombinant Sarah Navarro MD Work Phone: [facility] 04-22-2021 Influenza, injectabl e, Madin [place] Canine Kidney, preservative free, quadrivalent Sarah Navarro MD Work Phone: [facility] 03-21-2020 influenza, injectabl e, quadrivalent, preservative free Sarah Navarro MD Work Phone: [facility] Payers Date Payer Category Payer Medicare [id number] 2023 Unknown [id number] 2017 Unknown MMO MED MUTUAL S UPERMED PPO [id number] 2017-Present [id number] 2016 Unknown [id number] 2016 Unknown [id number] [id number] 2014 Unknown [id number] 1959 Self-pay 1958 Unknown [id number] [id number] 1958 Unknown [id number] [id number] 1958 Unknown [id number] [id number] 1958 Unknown [id number] [id number] 1958 Unknown [id number] [id number] 1958 Unknown [id number] 2.16.840.1.990571.3.579.2.196 1958 Unknown [id number] 2.16.840.1.955655.3.579.2.196 1958 Unknown [id number] 2.16.840.1.339959.3.579.2.196 1958 Unknown [id number] 2.16.840.1.279844.3.579.2.196 1958 Unknown [id number] 2.16.840.1.337471.3.579.2.196 1958 Unknown [id number] 2.16.840.1.770564.3.579.2.196 1958 Unknown [id number] 2.16.840.1.349558.3.579.2.196 1958 Unknown [id number] 2.16.840.1.586151.3.579.2.196 1958 Unknown [id number] 2.16.840.1.820173.3.579.2.754 1958 Unknown [id number] 2.16.840.1.211239.3.579.2.754 1958 Unknown [id number] [id number] 1958 Unknown [id number] Social History Date Type Detail Facility Start: 02-20-2020 End: 02-23-2022 Tobacco smoking status NHIS Former smoker [place], [place] End: 03-10-2011 History of tobacco use Cigarette Smoker [place] History of tobacco use Cigar Sm[place] Start: 02-20-2020 End: 02-23-2022 Tobacco use and exposure Never used [place], [place] Start: 02-20-2020 End: 03-13-2024 Alcohol intake Current drinker of alcohol (finding) [place] Start: 02-20-2020 History SDOH Alcohol Frequency 5 [place] Start: 02-20-2020 History SDOH Alcohol Std Drinks 1 [place] Start: 1960 Sex Assigned At Not on file [place] Start: 1960 Sex Assigned At Male [place] End: 03-10-2011 History of tobacco use Current smoker [facility] Start: 03-15-2018 End: 03-13-2024 Cigarettes smoked current (pack per day) - Reported 3 [facility] Start: 09-29-2021 End: 10-09-2021 Exposure to SARS-CoV-2 (event) Not sure [facility] Start: 02-20-2020 End: 03-13-2024 Alcohol Use Disorder Identification Test - Consumption [AUDIT-C] [facility] How often to you hav e a drink containing alcohol? 4 or more times a week [facility] How many standard dr inks containing alcohol do you have on a typical day? 1 or 2 [facility] Work Phone: Frequency of Binge Drinking Not on file [facility] Work Phone: (I/We) worried mike er (my/our) food would run out before (I/we) got money to buy more. Never true [facility] Work Phone: At any time in the p ast 12 months, were you homeless or living in longterm [including now]? No [facility] Work Phone: Start: 03-13-2024 Alcohol Comment couple drinks/day [facility] Work Phone: Start: 06-10-2020 Gender identity Identifies as male gender (finding) [facility] Work Phone: Start: 06-10-2020 Sexual orientation Heterosexual (finding) [facility] Work Phone: Start: *Tobacco [facility] Start: Denies substance abuse [facility] Start: Alcohol [facility] Start: Caffeine [facility] Discharge instructions 03-13-2024 Discharge InstructionsAttachments Note Date & Type Note Facility 03-13-2024 Hospital Discharg e instructions Sarah Navarro MD - 03/13/2024 8:53 AM EST Continue to clean wound and bandage for the next 48 hours as discussed in the ER today The following attachments cannot be sent through Care Everywhere.Compression Stockings: General Info (Bulgarian)documented in this encounter [facility] Work Phone: History of Present illness Narrative [...] Bethea II, MD documented in this encounter [facility] History of Present illness Narrative 03-26-2021 [...] Aida Benítez PA-C documented in this encounter [facility] Evaluation note Note Date & Type Note Facility Evaluation note Diagnosis Redundant skin of abdomen- Primary Recent weight loss documented in this encounter [facility] Evaluation note Note Date & Type Note Facility Evaluation note Diagnosis Rectus diastasis of lower abdomen- Primary documented in this encounter [facility] Evaluation note Note Date & Type Note Facility Evaluation note Diagnosis Redundant skin of abdomen- Primary Recent weight loss Intertrigo Other specified erythematous condition Nicotine vapor product user documented in this encounter [facility] Evaluation note Note Date & Type Note Facility Evaluation note Diagnosis Bleeding from varicose vein- Primary Varicose veins of lower extremities with other complications documented in this encounter [facility] Work Phone: Evaluation note Note Date & Type Note Facility Evaluation note Diagnosis Screening for lung cancer History of tobacco use Personal history of tobacco use, presenting hazards to health documented in this encounter [facility] Work Phone: Evaluation note Note Date & Type Note Facility Evaluation note Diagnosis Abnormal thyroid function test Nonspecific abnormal results of thyroid function study documented in this encounter [facility] Work Phone: Summary Purpose Family History No Family History Records FoundNo Family History Records FoundNo Family History Records FoundNo Family History Records FoundNo Family History Records FoundNo Family History Records FoundNo Family History Records Found Advance Directives No Advanced Directives Records FoundDocuments on File Type Date Recorded 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 Date of Appointment: 05/28/20 Audiologic Case History: Patient is a 59 y.o. male seen today for a hearing aid check. The patient reported he has been doing well with the hearing aids. He noted yesterday morning he noticed the right hearing aid loading unit tool setter was broken and spinning around where it connects into the hearing aid. He reported the left hearing aid has been having some intermittent feedback. The patient noted he needs domes, wax guards, and a new cleaning brush. Audiology Appointment Note: Patient was fit with: Phonak Audeo M90-R Right SN: [id number] Left SN: [id number] Dome size: small vented for right and medium open for left Forensic Sergeant length: 2M for the right and 2S for the left Phonak Warranty expires: 08/04/2021 Otoscopy revealed minimal cerumen accumulation bilaterally. Tympanic membranes were visualized and appropriate landmarks were present bilaterally. Cleaned and checked both hearing aids. Initial listening check revealed the right hearing aid was not amplifying due to broken loading unit tool setter. Replaced the patient's right loading unit tool setter (2M) under warranty. The left hearing aid [...] datalogging could not be reviewed. 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 Dispensed 4 [...] LUNG SCREENING Ciara Walker PA-C [address] [place] [address] Specialty Diagnoses / Procedures Referred By Brody padgett Referred To Contact Radiology Diagnoses Rectus diastasis of lower abdomen Procedures CT Abdomen Without Contrast Jesu Bethea II, MD [address] [place] [address] Referral ID Status Reason Start Date Expiration Date V isits Requested Visits Authorized [id number] New Request 10/09/2021 10/09/2022 1 1 Specialty Diagnoses / Procedures Referred By Brody padgett Referred To Contact Radiology Diagnoses Screening for lung cancer History of tobacco use Procedures CT LUNG SCREENING Ciara Walker PA-C [address] [place] [address] Referral ID Status Reason Start Date Expiration Date Visits Re quested Visits Authorized [id number] Closed 03/10/2024 03/10/2025 1 1 Assessments Diagnosis Ex-smoker Personal history of tobacco use, presenting hazards to health Additional Source Comments (unrecognized sect ion and content) No Status Records FoundNo Status Records FoundNo Status Records FoundNo Status Records FoundNo Status Records FoundNo Status Records FoundNo Status Records Found INFORMATION SOURCE (unrecogn ized section and content) DATE CREATED AUTHOR 04/17/2018 [facility] DATE CREATED AUTHOR AUTHOR'S ORGANIZ ATION 04/17/[address] [facility] DATE CREATED AUTHOR AUTHOR'S ORGANIZ ATION 02/08/2021 [facility] DATE CREATED AUTHOR AUTHOR'S ORGANIZ ATION 10/09/2021 [facility] DATE CREATED AUTHOR AUTHOR'S ORGANIZ ATION 12/14/2021 [facility] DATE CREATED AUTHOR AUTHOR'S ORGANIZ ATION 03/15/2023 [facility] DATE CREATED AUTHOR AUTHOR'S ORGANIZ ATION 05/01/2024 [facility] Reason for Visit (unrecogniz ed section and content) Status Reason Specialty Diagnoses / Procedures Referre d By Contact Referred To Contact Closed Radiology Diagnoses Ex-smoker Procedures CT LUNG SCREENING Ciara Walker PA-C [address] [place] [address] Reason Comments Advice Only Skin removal Specialty Diagnoses / Procedures Referred By Contjose t Referred To Contact Radiology Diagnoses Screening for lung cancer History of tobacco use Procedures CT LUNG SCREENING Ciara Walker PA-C [address] [place] [address] Referral ID Status Reason Start Date Expiration Date Visits Re quested Visits Authorized [id number] Closed 03/10/2024 03/10/2025 1 1 Care Teams (unrecognized sec tion and content) Bridge Mechanic Relationship Specialty Start Date End Date Ciara Walker III, PA-C [address] [place] [address] PCP - General Physician Tool Maker Bench 03/21/21 Bridge Mechanic Relationship Specialty Start Date End Date Ciara Walker III, PA-C [address] [place], [place] [phone] PCP - General Physician Tool Maker Bench 03/21/21 Bridge Mechanic Relationship Specialty Start Date End Date Ciara Walker III, PA-C [address] [place], [place] [phone] PCP - General Physician Tool Maker Bench 03/21/21 Bridge Mechanic Relationship Specialty Start Date End Date Ciara Walker PA-C PCP - General Family Medicine 02/01/20 Bridge Mechanic Relationship Specialty Start Date End Date Ciara Walker PA-C PCP - General Family Medicine 02/01/20 Bridge Mechanic Relationship Specialty Start Date End Date Ciara [...] BE BASED ON THE PRIMARY CLINICAL RECORDS. [facility]. provides no warranty or guarantee of the accuracy or completeness of information in this document.
== END 2024-05-04 15:15 | disposition home or self-care (01) ==
LOC: VC 14:51
PROVIDERS: PCP Radiology Diagnostic Radiology; Visit Provider Radiology Diagnostic Radiology
DX: I80.01 Phlebitis and thrombophlebitis of superficial vessels of right lower extremity (principal)
CPT/HCPCS: 93971; G0463

== ENCOUNTER 2024-05-18 12:37 | Outpatient (OUT) | payer MEDICARE, SELFPAY ==
--- NOTE | 2024-05-18 07:55 | V.VEINS.HP ---
Vital Signs 05/18/24 12:40 BP 148/70 H BP Location Left Brachial BP Position Sitting BP Cuff Size Adult BP Source Manual Cuff Respiration 16 Pulse 73 Pulse Source Monitor Oxygen Delivery Method Room Air Comment The patient's blood pressure is elevated. Varicose Veins Patient in this day for EVLT of left SSV. Jose Morton MD personally performed the services described in this documentation, as scribed by Kiana Tam RN in my presence and it is both accurate and complete. IKiana RN, am scribing for, and in the presence of, Dr. Jose Tomas and in the presence of the patient. thigh: bilateral (symptomsl left leg > right leg), knee: bilateral, calf: bilateral, ankle: bilateral and cordova: bilateral cramping 5 years Worsened in recent months: Yes standing elevating extremities, compression stockings and exercise Reports muscle spasms of leg, edema and leg edema History of lower extremity trauma: No Superficial thrombophlebitis: No Family history of varicose veins: no Has patient had previous lower extremity venous surgery: No Patient has previously received the following treatment(s) for lower extremity varicose veins: Reports none Does patient have a history of : not applicable Has patient had lower extremity venous scan with relux testing: No Support hose used: Yes Problems walking or doing physical activity: Yes How does it affect you: muscle spasms Do you walk much: Yes Do you stand much: Yes Review of Systems ROS Narrative Jose Morton MD personally performed the services described in this documentation, as scribed by Kiana Tam RN in my presence and it is both accurate and complete. IKiana RN, am scribing for, and in the presence of, Dr. Jose Tomas and in the presence of the patient. Status of ROS 10 or more systems reviewed and unremarkable except as noted in history and below Cardiovascular Reports: edema Integumentary/Breast Reports: changes in skin color Hematologic/Lymphatic Reports: easy bleeding PFSH REPLACED BY [facility] Medical History (Updated 04/26/24 @ 16:29 by Errol Trujillo) Phlebitis and thrombophlebitis of superficial vessels of right lower extremity ?I80.01 - Phlebitis and thrombophlebitis of superficial vessels of right lower extremity (ICD-10) Superficial thrombophlebitis of left leg ?I80.02 - Phlebitis and thrombophlebitis of superficial vessels of left lower extremity (ICD-10) Rotator cuff arthropathy ?M12.819 - Other specific arthropathies, not elsewhere classified, unspecified shoulder (ICD-10) Lung nodule ?R91.1 - Solitary pulmonary nodule (ICD-10) Hypertension ?I10 - Essential (primary) hypertension (ICD-10) Pain due to varicose veins of both lower extremities ?I83.813 - Varicose veins of bilateral lower extremities with pain (ICD-10) Surgical History (Updated 04/27/24 @ 13:21 by Errol Trujillo) Status post laser ablation of incompetent vein ?Z98.890 - Other specified postprocedural states (ICD-10) Status post laser ablation of incompetent vein ?Z98.890 - Other specified postprocedural states (ICD-10) H/O nasal septoplasty ?Z98.890 - Other specified postprocedural states (ICD-10) Family History (Updated 03/22/24 @ 10:24 by Errol Trujillo) Other Alzheimer dementia Family history of cancer Social History (Updated 03/22/24 @ 10:25 by Errol Trujillo) Within the past year, how often did you have a drink containing alcohol: 2-3 times a week Smoking status: Former smoker Non-prescribed substance use: denies use Meds Home Medications and Allergies Home Medications ?Medication ?Instructions ?Recorded ?Confirmed ?Type atorvastatin 20 mg tablet 20 mg PO DAILY 03/22/24 03/22/24 History levothyroxine 75 mcg tablet 75 mcg PO DAILY 03/22/24 03/22/24 History (Synthroid) losartan 25 mg tablet 25 mg PO DAILY 03/22/24 03/22/24 History cephalexin 500 mg capsule 500 mg PO BID 05/04/24 05/04/24 History Allergies Allergy/AdvReac Type Severity Reaction Status Date / Time No Known Drug Allergies Allergy Verified 03/22/24 10:27 Exam Narrative Exam Narrative: IJose MD personally performed the services described in this documentation, as scribed by Kiana Tam RN in my presence and it is both accurate and complete. IKiana RN, am scribing for, and in the presence of, Dr. Jose Tomas and in the presence of the patient. Constitutional Documenting provider has reviewed patient's vital signs: yes Common normals: oriented x3 Nutritional appearance: overweight Lymph Lymphatic: no lymphedema noted Cardio Peripheral pulses: posterior tibial pulses present and dorsalis pedis pulses present Extremity General: calf tenderness, edema and other findings Right lower extremity: lower leg Right lower leg: inspection and palpation Left lower extremity: lower leg Left lower leg: inspection and palpation Neuro Common normals: oriented x3 Assessment and Plan Assessment and Plan (1) Pain due to varicose veins of both lower extremities: Plan The patient tolerated the procedure well without complication.? The patient verbalizes understanding and states they will comply.? Patient was given post-procedure instructions. Patient was discharged in good condition.? Scheduled to undergo follow-up evaluation on 05/25/24. Jose Morton MD personally performed the services described in this documentation, as scribed by Kiana Tam RN in my presence and it is both accurate and complete. Kiana Morton RN, am scribing for, and in the presence of, Dr. Jose Tomas and in the presence of the patient. Procedures Procedure Instructions Procedures Plan of care: Risks and benefits of the procedure were discussed at length and informed written consent was obtained.? Time-out completed for verification of correct patient, procedure and site.? Staff present during time-out: Kiana Tam RN,? [facility], [facility]. Time Out Time___1258____ Patient prepped and procedure performed in usual sterile fashion. Risk of injury related to use of Diode laser and/or laser devices? __AG___ ? Serial number of laser used :? [id number] Control panel self test performed, electrical cords in good condition, floor is dry, basin of water available, fire extinguisher in close proximity_AG__ Polycarbonate goggles available and Laser warning signs outside of doors___AG___ Eye protection provided to patient and staff in room_AG___ Use of laser retardant drapes and dull blackened instruments as directed__AG___ Use of nonflammable prep solutions and use of saline soaked sponges to protect tissues as indicated _AG___ Length ____29____ cm Laser operated by Dr. Tomas Physician verbal confirmation laser locked in place__AG__ Laser start time (date and time) _05/18/24@1313 Laser stop time(date and time) __05/18/24@1316 Campbell _8.0___ Average laser use ____1367___Joules Average laser use____171____seconds Pulse continuous ___AG_? Pulse intermittent ___ Amount of Tumescent used Evaluated patient for signs and symptoms of electrical injury __AG___ ? Skin clear at insertion site __AG___ Patient tolerated procedure well.? Left leg Coban dressing applied to access site.? Applied Left thigh high leg compression stocking. Will return on 05/25/24 for Left leg limited venous ultrasound and exam. IJose MD personally performed the services described in this documentation, as scribed by Kiana Tam RN in my presence and it is both accurate and complete. I, Kiana Tam RN, am scribing for, and in the presence of, Dr. Jose Tomas and in the presence of the patient.
--- NOTE | 2024-05-18 07:59 | P.DS_ITS ---
Discharge Plan Discharge Disposition: Home, Self-Care Outpatient Diagnostics: VC Facility EST LMTD (Routine) Timeframe: 2 Weeks Facility: [facility] - Location: Vein Center Ordered By: Jose Tomas VC EXT Venous LT Limited (Routine) Timeframe: 2 Weeks Facility: [facility] - Location: Vein Center Ordered By: Jose Tomas Follow Up Appointments: 05/25/24 Plan of Treatment: u/s follow up following EVLT of left SSV 05/18/24 Patient Instructions: Endovenous Ablation (DC) Print Language: Latvian Discharge Date/Time: 05/18/24 13:28
--- NOTE | 2024-05-18 12:38 | VEIN_ITS ---
[address] [address] Patient Name: SHASHI SAAB MRN: [id number] date: 1960 Sex: M Assigned Patient Location: Current Patient Location: Accession/Order Number: [id number] Exam Date: 05/18/2024 12:37 Report Date: 05/18/2024 13:45 At the request of: DIPIKA MEDINA Procedure: VC Endovenous Ablation 1VeinLT EXAMINATION: VC Endovenous Ablation 1Vein, left small saphenous vein HISTORY: I83.813 - Varicose veins of bilateral lower extremities w... COMPARISON: No relevant comparison available. TECHNIQUE: The risks and benefits of the procedure had been previously discussed, and were rediscussed at length. Informed written consent was obtained. Keyla Quinn and Kiana Tam assisted. Time out procedure was performed. The left lower extremity was prepared and draped in the usual sterile fashion. Duplex ultrasound probe was draped in a sterile cover, sterile transmission gel was used. Venous mapping was performed with the areas of dilation and large tributaries marked. The total length was 29 cm from the entry distal calf to where the vein begins to dive into the muscle. The diameter of the small saphenous vein ranged from 5-6 mm. A 30 gauge needle and 1% buffered lidocaine was used to anesthetize the entry site. A 4 mm incision was made with a scalpel and the saphenous vein was entered percutaneously under direct ultrasound guidance with a micropuncture set, a single stick was successful in gaining access. A micro-guide wire was inserted and the needle removed. A micro-set including a dilator was inserted over the microwire and the needle and dilator were removed. A 0.018 guide wire was inserted through the micro-set and threaded through the saphenous vein to the saphenofemoral junction. The dilator was removed and an introducer sheath was inserted over the wire until the end of the sheath entered the saphenofemoral junction. The dilator and wire were removed and the 600 micron fiber was introduced and placed and positioned so that it extended beyond the sheath and was 3 cm peripheral to the saphenofemoral femoral junction. Final position of the fiber was determined by ultrasound guidance and duplex imaging. Tumescent anesthetic was delivered by ultrasound guidance. 150 cc of fluid was delivered along the entire course of the saphenous vein. The solution consisted of 1000 cc of normal saline with 40 mL of 1% lidocaine and 20 mL of sodium bicarbonate. A final positioning check was made. The energy source was turned on by means of the foot pedal and the fiber and sheath were withdrawn. The total number of Joules delivered was 1367. The laser was active for 171 seconds under continuous pulse, average laser use of 8 J. Laser start time 1:13 PM . Laser stop time 1:16 PM . A duplex ultrasound revealed compressibility and flow at the saphenofemoral junction immediately after the procedure. Hemostasis at the access site was achieved. The skin incision of the saphenous vein was closed with a 4 x 4. A compression stocking was applied. Postop instructions were given. A follow up appointment was recommended and scheduled. The patient tolerated the procedure well and was discharged in good condition . VEIN/VC Endovenous Ablation 1VeinLT IMPRESSION: Technically successful endovenous laser ablation left small saphenous vein Electronically authenticated by: LYNNE CUETO Date: 05/18/2024 13:45
[2024-05-18 12:40] VITALS: BP 148/70; PULSE 73
[2024-05-18] MEDS: 0.9 % SODIUM CHLORIDE 500 ML, LIDOCAINE HCL 20 ML, SODIUM BICARBONATE 10 MEQ INJ (12:59)
[2024-05-18] MEDS: LIDOCAINE HCL 1% 100 MG/10 ML MDV INJ (12:59)
== END 2024-05-18 13:28 | disposition home or self-care (01) ==
LOC: VC 12:37
PROVIDERS: PCP Radiology Diagnostic Radiology; Visit Provider Radiology Diagnostic Radiology
DX: I83.813 Varicose veins of bilateral lower extremities with pain (principal)
CPT/HCPCS: 36478

== ENCOUNTER 2024-05-25 12:48 | Outpatient (OUT) | payer MEDICARE, SELFPAY ==
--- NOTE | 2024-05-25 12:50 | VEIN_ITS ---
Patient Name: SHASHI SAAB MR#: [id number] : 1960 Exam Date: 05/25/2024 Ordering Doctor: DR JOSE TOMAS M.D. RADIOLOGY REPORT PROCEDURE: VC EXT VENOUS LT LIMITED COMPARISON: VC EXT VENOUS LT LIMITED, 04/20/2024. VC EXT VENOUS LT LIMITED, 04/04/2024. INDICATIONS: I80.02 - Phlebitis and thrombophlebitis of superficial ve... TECHNIQUE: Lower extremity michelle scale and Duplex Doppler evaluation of the deep venous system from the inguinal ligament through the calf veins. FINDINGS: REGION: Left lower extremity. THROMBI: Negative for DVT. Heat induced thrombus visualized from distal thigh to distal calf. COMPRESSIBILITY: Non-compressible segments corresponding to thrombus FLOW: Areas of no flow corresponding to thrombus CONCLUSION: Post ablation occlusion of the left small saphenous vein which was the thigh extension, no deep vein thrombus Dictated by: Jose Tomas MD on 05/25/2024 at 14:25 Approved by: Jose Tomas MD on 05/25/2024 at 14:42
--- NOTE | 2024-05-25 12:50 | VEIN_ITS ---
Patient Name: SHASHI SAAB MR#: [id number] : 1960 Exam Date: 05/25/2024 Ordering Doctor: DR JOSE TOMAS M.D. RADIOLOGY REPORT PROCEDURE: [facility] EST LMTD [facility] - OFFICE VISIT FOLLOW UP COMPARISON: [facility] EST LMTD, 05/04/2024. [facility] EST LMTD, 04/20/2024. PROGRESS NOTES: The patient reports no significant problems following intravenous laser ablation of the left small saphenous vein. The patient has worn his compression stocking. The patient did require oral analgesics. Physical exam demonstrates no bruising. The incision is healed. The thrombosed small saphenous vein cannot be definitively palpated. No erythema or warmth to suggest cellulitis or thrombophlebitis. No ulceration Review of the ultrasound performed the same day demonstrates occlusive thrombus extending throughout the treated left small saphenous vein which is a thigh extension period no deep vein thrombus. The patient expressed a desire to proceed with treatment of incompetent right small saphenous vein with intravenous laser ablation. VEIN/[facility] EST LMTD IMPRESSION: 1. Successful ablation of the left small saphenous vein 2. Persistent incompetent right small saphenous vein. PLAN: Intravenous laser ablation right small saphenous vein Nurse notes, history and physical were reviewed and confirmed, see attached forms. The nurse was present throughout the physical exam and consultation Dictated by: Jose Tomas MD on 05/25/2024 at 14:43 Approved by: Jose Tomas MD on 05/25/2024 at 14:44
--- NOTE | 2024-05-25 12:52 | VEINCLINIC_ITS ---
Varicose Veins Patient in this day for follow up ultrasound post EVLT of left SSV. Jose Morton MD personally performed the services described in this documentation, as scribed by Myrtle Orellana RVT, RDMS in my presence and it is both accurate and complete. Myrtle Morton RVT, RDMS, am scribing for, and in the presence of, Dr. Jose Tomas and in the presence of the patient. thigh: bilateral (symptomsl left leg > right leg), knee: bilateral, calf: bilateral, ankle: bilateral and cordova: bilateral cramping 5 years Worsened in recent months: Yes standing elevating extremities, compression stockings and exercise Reports muscle spasms of leg, edema and leg edema History of lower extremity trauma: No Superficial thrombophlebitis: No Family history of varicose veins: no Has patient had previous lower extremity venous surgery: No Patient has previously received the following treatment(s) for lower extremity varicose veins: Reports none Does patient have a history of : not applicable Has patient had lower extremity venous scan with relux testing: No Support hose used: Yes Problems walking or doing physical activity: Yes How does it affect you: muscle spasms Do you walk much: Yes Do you stand much: Yes Review of Systems ROS Narrative Jose Morton MD personally performed the services described in this documentation, as scribed by Myrtle Orellana RVT, RDMS in my presence and it is both accurate and complete. Myrtle Morton RVT, RDMS, am scribing for, and in the presence of, Dr. Jose Tomas and in the presence of the patient. Status of ROS 10 or more systems reviewed and unremark able except as noted in history and below Cardiovascular Reports: edema Integumentary/Breast Reports: changes in skin color Hematologic/Lymphatic Reports: easy bleeding PFSH PFS Medical History (Updated 04/26/24 @ 16:29 by Errol Trujillo) Phlebitis and thrombophlebitis of superficial vessels of right lower extremity ?I80.01 - Phlebitis and thrombophlebitis of superficial vessels of right low er extremity (ICD-10) Superficial thrombophlebitis of left leg ?I80.02 - Phlebitis and thrombophlebitis of superficial vessels of left lower extremity (ICD-10) Rotator cuff arthropathy ?M12.819 - Other specific arthropathies, not elsewhere classified, unspecified shoulder (ICD-10) Lung nodule ?R91.1 - Solitary pulmonary nodule (ICD-10) Hypertension ?I10 - Essential (primary) hypertension (ICD-10) Pain due to varicose veins of both lower extremities ?I83.813 - Varicose veins of bilateral lower extremities with pain (ICD-10) Surgical History (Updated 04/27/24 @ 13:21 by Errol Trujillo) Status post laser ablation of incompetent vein ?Z98.890 - Other specified postprocedural states (ICD-10) Status post laser ablation of incompetent vein ?Z98.890 - Other specified postprocedural states (ICD-10) H/O nasal septoplasty ?Z98.890 - Other specified postprocedural states (ICD-10) Family History (Updated 03/22/24 @ 10:24 by Errol Trujillo) Other Alzheimer dementia Family history of cancer Social History (Updated 03/22/24 @ 10:25 by Errol Trujillo) Within the past year, how often did you have a drink containing alcohol: 2-3 times a week Smoking status: Former smoker Non-prescribed substance use: denies use Meds Home Medications and Allergies Home Medications ?Medication ?Instructions ?Recorded ?Confirmed ?Type atorvastatin 20 mg tablet 20 mg PO DAILY 03/22/24 03/22/24 History levothyroxine 75 mcg tablet 75 mcg PO DAILY 03/22/24 03/22/24 History (Synthroid) losartan 25 mg tablet 25 mg PO DAILY 03/22/24 03/22/24 History cephalexin 500 mg capsule 500 mg PO BID 05/04/24 05/04/24 History Allergies Allergy/AdvReac Type Severity Reaction Status Date / Time No Known Drug Allergies Allergy Verified 03/22/24 10:27 Exam Narrative Exam Narrative: IJose MD personally performed the services described in this documentation, as scribed by Myrtle Orellana RVT, RDMS in my presence and it is both accurate and complete. Myrtle Morton RVT, RDMS, am scribing for, and in the presence of, Dr. Jose Tomas and in the presence of the patient. Constitutional Documenting provider has reviewed patient's vital signs: yes Common normals: oriented x3 Nutritional appearance: overweight Lymph Lymphatic: no lymphedema noted Cardio Peripheral pulses: posterior tibial pulses present and dorsalis pedis pulses present Extremity General: calf tenderness, edema and other findings Right lower extremity: lower leg Right lower leg: inspection and palpation Left lower extremity: lower leg Left lower leg: inspection and palpation Neuro Common normals: oriented x3 Results Imaging Venous US: Radiologist's impression: The ultrasound demonstrates Heat induced thrombus visualized from distal thigh to distal calf. Assessment and Plan Assessment and Plan (1) Superficial thrombophlebitis of left leg: Plan Patient in today for follow up ultrasound of lower extremity following treatment of EVLT of left leg SSV completed on 05/18/24. IJose MD personally performed the services described in this documentation, as scribed by Myrtle Orellana RVT, RDMS in my presence and it is both accurate and complete. IMyrtle RVT, RDMS, am scribing for, and in the presence of, Dr. Jose Tomas and in the presence of the patient.
--- NOTE | 2024-05-25 13:34 | P.DS_ITS ---
Discharge Plan Discharge Disposition: Home, Self-Care Outpatient Diagnostics: VC Endovenous Ablation 1VeinRT (Routine) Timeframe: 2 Weeks Facility: [facility] - Location: Vein Center Ordered By: Jose Tomas Follow Up Appointments: 06/05/24 Plan of Treatment: EVLT of right leg SSV Print Language: Romanian Discharge Date/Time: 05/25/24 13:51
== END 2024-05-25 13:51 | disposition home or self-care (01) ==
PROVIDERS: PCP Radiology Diagnostic Radiology; Visit Provider Radiology Diagnostic Radiology
DX: I80.02 Phlebitis and thrombophlebitis of superficial vessels of left lower extremity (principal)
CPT/HCPCS: 93971; G0463

== ENCOUNTER 2024-06-01 14:25 | Outpatient (OUT) | payer MEDICARE, SELFPAY ==
--- NOTE | 2024-05-31 09:19 | V.VEINS.HP ---
Vital Signs 06/01/24 14:30 BP 130/75 BP Location Right Brachial BP Position Sitting BP Cuff Size Adult BP Source Manual Cuff Respiration 16 Pulse 77 Pulse Source Monitor Pulse Oximetry (%) 98 Oxygen Delivery Method Room Air Comment The patient's blood pressure is elevated. Varicose Veins Patient in this day for EVLT of right SSV Jose Morton MD personally performed the services described in this documentation, as scribed by Errol Trujillo RN in my presence and it is both accurate and complete. IErrol RN, am scribing for, and in the presence of, Dr. Jose Tomas and in the presence of the patient. thigh: bilateral (symptomsl left leg > right leg), knee: bilateral, calf: bilateral, ankle: bilateral and cordova: bilateral cramping 5 years Worsened in recent months: Yes standing elevating extremities, compression stockings and exercise Reports muscle spasms of leg, edema and leg edema History of lower extremity trauma: No Superficial thrombophlebitis: No Family history of varicose veins: no Has patient had previous lower extremity venous surgery: No Patient has previously received the following treatment(s) for lower extremity varicose veins: Reports none Does patient have a history of : not applicable Has patient had lower extremity venous scan with relux testing: No Support hose used: Yes Problems walking or doing physical activity: Yes How does it affect you: muscle spasms Do you walk much: Yes Do you stand much: Yes Review of Systems ROS Narrative Jose Morton MD personally performed the services described in this documentation, as scribed by Errol Trujillo RN in my presence and it is both accurate and complete. IErrol RN, am scribing for, and in the presence of, Dr. Jose Tomas and in the presence of the patient. Status of ROS 10 or more systems reviewed and unremarkable except as noted in history and below Cardiovascular Reports: edema Integumentary/Breast Reports: changes in skin color Hematologic/Lymphatic Reports: easy bleeding [facility] Medical History (Updated 05/31/24 @ 09:24 by Errol Trujillo) Varicose veins of bilateral lower extremities with pain ?I83.813 - Varicose veins of bilateral lower extremities with pain (ICD-10) Phlebitis and thrombophlebitis of superficial vessels of right lower extremity ?I80.01 - Phlebitis and thrombophlebitis of superficial vessels of right lower extremity (ICD-10) Superficial thrombophlebitis of left leg ?I80.02 - Phlebitis and thrombophlebitis of superficial vessels of left lower extremity (ICD-10) Rotator cuff arthropathy ?M12.819 - Other specific arthropathies, not elsewhere classified, unspecified shoulder (ICD-10) Lung nodule ?R91.1 - Solitary pulmonary nodule (ICD-10) Hypertension ?I10 - Essential (primary) hypertension (ICD-10) Pain due to varicose veins of both lower extremities ?I83.813 - Varicose veins of bilateral lower extremities with pain (ICD-10) Surgical History (Updated 06/01/24 @ 14:29 by Errol Trujillo) Status post laser ablation of incompetent vein ?Z98.890 - Other specified postprocedural states (ICD-10) Status post laser ablation of incompetent vein ?Z98.890 - Other specified postprocedural states (ICD-10) Status post laser ablation of incompetent vein ?Z98.890 - Other specified postprocedural states (ICD-10) H/O nasal septoplasty ?Z98.890 - Other specified postprocedural states (ICD-10) Family History (Updated 03/22/24 @ 10:24 by Errol Trujillo) Other Alzheimer dementia Family history of cancer Social History (Updated 03/22/24 @ 10:25 by Errol Trujillo) Within the past year, how often did you have a drink containing alcohol: 2-3 times a week Smoking status: Former smoker Non-prescribed substance use: denies use Meds Home Medications and Allergies Home Medications ?Medication ?Instructions ?Recorded ?Confirmed ?Type atorvastatin 20 mg tablet 20 mg PO DAILY 03/22/24 03/22/24 History levothyroxine 75 mcg tablet 75 mcg PO DAILY 03/22/24 03/22/24 History (Synthroid) losartan 25 mg tablet 25 mg PO DAILY 03/22/24 03/22/24 History cephalexin 500 mg capsule 500 mg PO BID 05/04/24 05/04/24 History Allergies Allergy/AdvReac Type Severity Reaction Status Date / Time No Known Drug Allergies Allergy Verified 03/22/24 10:27 Exam Narrative Exam Narrative: I, Jose Tomas MD personally performed the services described in this documentation, as scribed by Errol Ronnie RN in my presence and it is both accurate and complete. I, Errol Trujillo RN, am scribing for, and in the presence of, Dr. Jose Tomas and in the presence of the patient. Constitutional Documenting provider has reviewed patient's vital signs: yes Common normals: oriented x3 Nutritional appearance: overweight Lymph Lymphatic: no lymphedema noted Cardio Peripheral pulses: posterior tibial pulses present and dorsalis pedis pulses present Extremity General: calf tenderness, edema and other findings Right lower extremity: lower leg Right lower leg: inspection and palpation Left lower extremity: lower leg Left lower leg: inspection and palpation Neuro Common normals: oriented x3 Assessment and Plan Assessment and Plan (1) Varicose veins of bilateral lower extremities with pain: Plan f/u evaluation with physician along with right leg limited u/s Jose Morton MD personally performed the services described in this documentation, as scribed by Errol Trujillo RN in my presence and it is both accurate and complete. IErrol RN, am scribing for, and in the presence of, Dr. Jose Tomas and in the presence of the patient. Procedures Procedure Instructions Procedures Plan of care: Risks and benefits of the procedure were discussed at length and informed written consent was obtained.? Time-out completed for verification of correct patient, procedure and site.? Staff present during time-out: Errol Trujillo RN,? Jose Tomas MD, [facility]/RVT,. Time Out Time_1443 Patient prepped and procedure performed in usual sterile fashion. Risk of injury related to use of Diode laser and/or laser devices__CR___ ? Serial number of laser used :? [id number] Control panel self test performed, electrical cords in good condition, floor is dry, basin of water available, fire extinguisher in close proximity_CR__ Polycarbonate goggles available and Laser warning signs outside of doors___CR__ Eye protection provided to patient and staff in room_CR___ Use of laser retardant drapes and dull blackened instruments as directed__CR___ Use of nonflammable prep solutions and use of saline soaked sponges to protect tissues as indicated _CR___ Length ____27____ cm Laser operated by __Dr. Tomas Physician verbal confirmation laser locked in place__CR__ Laser start time (date and time) __06/01/2024@__1452 Laser stop time(date and time) __06/01/2024@__1456 [place] _8.0___ Average laser use __1273 Joules Average laser use__159 seconds Pulse continuous ___CR_? Pulse intermittent ___ Amount of Tumescent used _125cc Evaluated patient for signs and symptoms of electrical injury __CR___ ? Skin clear at insertion site __CR___ Patient tolerated procedure well.? Right leg Coban dressing applied to access site.? Applied right thigh high leg compression stocking. Will return on 06/08/2024 for right leg limited venous ultrasound and exam. IJose MD personally performed the services described in this documentation, as scribed by Errol Trujillo RN in my presence and it is both accurate and complete. I, Errol Trujillo RN, am scribing for, and in the presence of, Dr. Jose Tomas and in the presence of the patient.
--- NOTE | 2024-05-31 09:24 | P.DS_ITS ---
Discharge Plan Discharge Disposition: Home, Self-Care Outpatient Diagnostics: VC Facility EST LMTD (Routine) Timeframe: 2 Weeks Facility: [facility] - Location: Vein Center Ordered By: Jose Tomas VC EXT Venous RT LMTD (Routine) Timeframe: 2 Weeks Facility: [facility] - Location: Vein Center Ordered By: Jose Tomas Follow Up Appointments: 06/08/2024 Plan of Treatment: f/u evaluation with physician along with right leg limited u/s Patient Instructions: Endovenous Ablation (DC) Print Language: Kinyarwanda Discharge Date/Time: 06/01/24 14:47
[2024-06-01] MEDS: 0.9 % SODIUM CHLORIDE 500 ML, LIDOCAINE HCL 20 ML, SODIUM BICARBONATE 10 MEQ INJ (14:25)
--- NOTE | 2024-06-01 14:25 | VEIN_ITS ---
[address] [address] Patient Name: SHASHI SAAB MRN: [id number] date: 1960 Sex: M Assigned Patient Location: Current Patient Location: Accession/Order Number: [id number] Exam Date: 06/01/2024 14:30 Report Date: 06/01/2024 15:59 At the request of: LYNNE CUETO Procedure: VC Endovenous Ablation 1VeinRT EXAMINATION: VC Endovenous Ablation 1Vein right small saphenous vein HISTORY: I83.813 - Varicose veins of bilateral lower extremities w... COMPARISON: No relevant comparison available. TECHNIQUE: The risks and benefits of the procedure had been previously discussed, and were rediscussed at length. Informed written consent was obtained. Keyla Quinn and Errol Trujillo assisted. Time out procedure was performed. The right lower extremity was prepared and draped in the usual sterile fashion . Duplex ultrasound probe was draped in a sterile cover, sterile transmission gel was used. Venous mapping was performed with the areas of dilation and large tributaries marked. The total length was 27 cm from the entry 10 cm above the lateral malleolus to when the vein begins to dive deep to the muscle fascia. The diameter of the small saphenous vein ranged from 6-7 mm. A 30 gauge needle and 1% buffered lidocaine was used to anesthetize the entry site. A 4 mm incision was made with a scalpel and the saphenous vein was entered percutaneously under direct ultrasound guidance with a micropuncture set, a single stick was successful in gaining access. A micro-guide wire was inserted and the needle removed. A micro-set including a dilator was inserted over the microwire and the needle and dilator were removed. A 0.018 guide wire was inserted through the micro-set and threaded through the saphenous vein. The dilator was removed and an introducer sheath was inserted over the wire. The dilator and wire were removed and the 600 micron fiber was introduced and placed and positioned so that it extended beyond the sheath. Final position of the fiber was determined by ultrasound guidance and duplex imaging. Tumescent anesthetic was delivered by ultrasound guidance. 125 cc of fluid was delivered along the entire course of the saphenous vein. The solution consisted of 1000 cc of normal saline with 40 mL of 1% lidocaine and 20 mL of sodium bicarbonate. A final positioning check was made. The energy source was turned on by means of the foot pedal and the fiber and sheath were withdrawn. The total number of Joules delivered was 1273. The laser was active for 159 seconds under continuous pulse, average laser use of 8 J. Laser start time 1452 . Laser stop time 1456 . A duplex ultrasound revealed compressibility and flow at the saphenofemoral junction immediately after the procedure. Hemostasis at the access site was achieved. The skin incision of the saphenous vein was closed with a 4 x 4. A compression stocking was applied. Postop instructions were given. A follow up appointment was recommended and scheduled. The patient tolerated the procedure well and was discharged in good condition . VEIN/VC Endovenous Ablation 1VeinRT IMPRESSION: Technically successful endovenous laser ablation right small saphenous vein Electronically authenticated by: LYNNE CUETO Date: 06/01/2024 15:59
[2024-06-01] MEDS: LIDOCAINE HCL 1% 100 MG/10 ML MDV INJ (14:26)
[2024-06-01 14:30] VITALS: BP 130/75; PULSE 77; O2SAT 98
== END 2024-06-01 14:47 | disposition home or self-care (01) ==
LOC: VC 14:25
PROVIDERS: PCP Radiology Diagnostic Radiology; Visit Provider Radiology Diagnostic Radiology
DX: I83.813 Varicose veins of bilateral lower extremities with pain (principal)
CPT/HCPCS: 36478

== ENCOUNTER 2024-06-08 10:55 | Outpatient (OUT) | payer MEDICARE, SELFPAY ==
--- NOTE | 2024-06-08 07:45 | VEINCLINIC_ITS ---
Varicose Veins Patient in this day for follow up ultrasound post EVLT of right SS. V Kevon Morton MD personally performed the services described in this documentation, as scribed by Myrtle Orellana RVT, RDMS in my presence and it is both accurate and complete. Myrtle Morton RVT, RDMS, am scribing for, and in the presence of, Dr. Kevon Simmons and in the presence of the patient. thigh: bilateral (symptomsl left leg > right leg), knee: bilateral, calf: bilateral, ankle: bilateral and cordova: bilateral cramping 5 years Worsened in recent months: Yes standing elevating extremities, compression stockings and exercise Reports muscle spasms of leg, edema and leg edema History of lower extremity trauma: No Superficial thrombophlebitis: No Family history of varicose veins: no Has patient had previous lower extremity venous surgery: No Patient has previously received the following treatment(s) for lower extremity varicose veins: Reports none Does patient have a history of : not applicable Has patient had lower extremity venous scan with relux testing: No Support hose used: Yes Problems walking or doing physical activity: Yes How does it affect you: muscle spasms Do you walk much: Yes Do you stand much: Yes Review of Systems ROS Narrative Kevon Morton MD personally performed the services described in this documentation, as scribed by Myrtle Orellana RVT, RDMS in my presence and it is both accurate and complete. Myrtle Morton RVT, RDMS, am scribing for, and in the presence of, Dr. Kevon Simmons and in the presence of the patient. Status of ROS 10 or more systems reviewed and unremark able except as noted in history and below Cardiovascular Reports: edema Integumentary/Breast Reports: changes in skin color Hematologic/Lymphatic Reports: easy bleeding [facility] Medical History (Updated 05/31/24 @ 09:24 by Errol Trujillo) Varicose veins of bilateral lower extremities with pain ?I83.813 - Varicose veins of bilateral lower extremities with pain (ICD-10) Phlebitis and thrombophlebitis of superficial vessels of right lower extremity ?I80.01 - Phlebitis and thrombophlebitis of superficial vessels of right lower extremity (ICD-10) Superficial thrombophlebitis of left leg ?I80.02 - Phlebitis and thrombophlebitis of superficial vessels of left lower extremity (ICD-10) Rotator cuff arthropathy ?M12.819 - Other specific arthropathies, not elsewhere classified, unspecified shoulder (ICD-10) Lung nodule ?R91.1 - Solitary pulmonary nodule (ICD-10) Hypertension ?I10 - Essential (primary) hypertension (ICD-10) Pain due to varicose veins of both lower extremities ?I83.813 - Varicose veins of bilateral lower extremities with pain (ICD-10) Surgical History (Updated 06/01/24 @ 14:29 by Errol Trujillo) Status post laser ablation of incompetent vein ?Z98.890 - Other specified postprocedural states (ICD-10) Status post laser ablation of incompetent vein ?Z98.890 - Other specified postprocedural states (ICD-10) Status post laser ablation of incompetent vein ?Z98.890 - Other specified postprocedural states (ICD-10) H/O nasal septoplasty ?Z98.890 - Other specified postprocedural states (ICD-10) Family History (Updated 03/22/24 @ 10:24 by Errol Trujillo) Other Alzheimer dementia Family history of cancer Social History (Updated 03/22/24 @ 10:25 by Errol Trujillo) Within the past year, how often did you have a drink containing alcohol: 2-3 times a week Smoking status: Former smoker Non-prescribed substance use: denies use Meds Home Medications and Allergies Home Medications ?Medication ?Instructions ?Recorded ?Confirmed ?Type atorvastatin 20 mg tablet 20 mg PO DAILY 03/22/24 03/22/24 History levothyroxine 75 mcg tablet 75 mcg PO DAILY 03/22/24 03/22/24 History (Synthroid) losartan 25 mg tablet 25 mg PO DAILY 03/22/24 03/22/24 History cephalexin 500 mg capsule 500 mg PO BID 05/04/24 05/04/24 History Allergies Allergy/AdvReac Type Severity Reaction Status Date / Time No Known Drug Allergies Allergy Verified 03/22/24 10:27 Exam Narrative Exam Narrative: IKevon MD personally performed the services described in this documentation, as scribed by Myrtle Orellana RVT, RIYA in my presence and it is both accurate and complete. IMyrtlenger RVT, RDMS, am scribing for, and in the presence of, Dr. Kevon Simmons and in the presence of the patient. Constitutional Documenting provider has reviewed patient's vital signs: yes Common normals: oriented x3 Nutritional appearance: overweight Lymph Lymphatic: no lymphedema noted Cardio Peripheral pulses: posterior tibial pulses present and dorsalis pedis pulses present Extremity General: calf tenderness, edema and other findings Right lower extremity: lower leg Right lower leg: inspection and palpation Left lower extremity: lower leg Left lower leg: inspection and palpation Neuro Common normals: oriented x3 Results Imaging Venous US: Radiologist's impression: The ultrasound demonstrates Heat induced thrombus visualized arising at prox calf and extending through distal calf. Assessment and Plan Assessment and Plan (1) Phlebitis and thrombophlebitis of superficial vessels of right lower extremity: Plan Patient in today for follow up ultrasound of lower extremity following treatment of EVLT of right SSV completed on 06/01/24. Kevon Morton MD personally performed the services described in this documentation, as scribed by Myrtle Orellana RVT, RDMS in my presence and it is both accurate and complete. Myrtle Morton RVT, RDMS, am scribing for, and in the presence of, Dr. Kevon Simmons and in the presence of the patient.
--- NOTE | 2024-06-08 07:47 | W.VEIN ---
Discharge Plan Discharge Disposition: Home, Self-Care Follow Up Appointments: Patient wants to continue treatment with Dr. Tomas and Dr. Simmons. Plan of Treatment: Varithena/microfoam chemical ablation left leg. Print Language: Albanian Discharge Date/Time: 06/08/24 11:17
--- NOTE | 2024-06-08 10:56 | VEIN_ITS ---
Patient Name: SHASHI SAAB MR#: [id number] : 1960 Exam Date: 06/08/2024 Ordering Doctor: DR LYNNE CUETO M.D. RADIOLOGY REPORT PROCEDURE: VC EXT VENOUS RT LMTD COMPARISON: VC EXT VENOUS RT LMTD, 05/04/2024. INDICATIONS: I80.01 - Phlebitis and thrombophlebitis of superficial ve... TECHNIQUE: Lower extremity michelle scale and Duplex Doppler evaluation of the deep venous system from the inguinal ligament through the calf veins. FINDINGS: REGION: Right lower extremity. THROMBI: Negative for DVT. Heat induced thrombus visualized arising at prox calf and extending through distal calf. COMPRESSIBILITY: Non-compressible segments corresponding to thrombus FLOW: Areas of no flow corresponding to thrombus OTHER: CONCLUSION: 1. Successful post ablation occlusion of right small saphenous vein. Dictated by: Kevon Simmons M.D. on 06/08/2024 at 14:11 Approved by: Kevon Simmons M.D. on 06/08/2024 at 14:12
--- NOTE | 2024-06-08 10:56 | VEIN_ITS ---
Patient Name: SHASHI SAAB MR#: [id number] : 1960 Exam Date: 06/08/2024 Ordering Doctor: DR LYNNE CUETO M.D. RADIOLOGY REPORT PROCEDURE: [facility] EST LMTD VEIN CENTER - OFFICE VISIT FOLLOW UP [facility] PROGRESS NOTES: The patient reports improvement in leg symptoms. There has been interval reduction in varicosities. The patient has followed our recommendations to walk 20-30 minutes once or twice per day since the procedure. Physical exam demonstrates decrease in varicosities of the leg. Persistent varicosities are identified along the legs bilaterally. Review of the ultrasound performed the same day demonstrates occlusive thrombus extending throughout the treated vein(s), see separate report, consistent with a successful ablation. No thrombus extending into or beyond the saphenofemoral junction. The patient expressed a desire to proceed with treatment of remaining incompetent varicosities. The patient was informed that treatment was a process and would require several procedures/sessions. VEIN/[facility] EST TD IMPRESSION: 1. Successful ablation of the right small saphenous vein(s). 2. Persistent varicose veins and lower extremity symptoms. PLAN: 1. Microfoam chemical ablation of bilateral lower extremity incompetent branch saphenous varicosities. Nurse notes, history and physical were reviewed and confirmed, see attached forms. The nurse was present throughout the physical exam and consultation Dictated by: Kevon Simmons M.D. on 06/08/2024 at 14:12 Approved by: Kevon Simmons M.D. on 06/08/2024 at 14:14
--- OUTSIDE RECORDS SUMMARY | 2024-06-08 11:06 | XMS_ITS | CCD ---
Author Organization [facility] Care Team Providers Care Morning Show Producer Name Role Phone THAIS WRIGHT Unavailable Unavailable MIGUEL DIALLO Unavailable Unavailable THAIS WRIGHT Unavailable Unavailable Yuval Ciara Primary Care Provider [phone] Elder Goodman Primary Care Provider Beitler III, PA-C, Ciara Mich Primary Care Provider Beitler III, PA-C, Icara Mich Primary Care Provider AIDA BENÍTEZ Attending [...] Harper Walker PA-C, Ciara Primary Care Provider [phone] Mino Pickens Primary Care Physician Unavailab Ilan Oconnor Unavailable Unavailab CIARA Power Primary Care Unavailable CIARA WALKER Referring Unavailable CIARA WALKER Attending Unavailable CIARA WALKER Referring Unavailable CIARA WALKER Primary Care Unavailable CIARA WALKER Primary Care Unavailable Sarah Navarro Attending Unavailable CIARA WALKER Referring Unavailable CIARA WALKER Primary Care Unavailable Medications Current Medications Medication Drug Class(es) Dates Sig (Normalized) Sig (Original) [id number] 200 actuat albuterol 0.09 mg/actuat metered dose [...] FT4on 04-28-2024 TSH 2.760 mIU/mL Normal 0.470-4.680 [facility] Comment on above: Performed By: #### [id number] #### [place] [address] Ph. [phone] TSH with Reflexon 04-28-2024 TSH Qn 2.760 m[IU]/L [facility] No Panel Informationon 03-28 Tobacco smoking status Current Tobacco User Invalid Interpretation Code [place] Chest for screeningon Mild centrilobular emphysema [...] Report electronically signed by: Dr. Miguel An [facility] Miguel Gonzales MD - 03/14/2024 [...] the chest in [address] [facility] Work Phone: Radiology Study observation (narrative) [facility] Work Phone: CT Chest for screeningOrdere d By: Miguel An on 03-14-[address]24 [facility] CT LUNG SCREENING (INITIAL/A NNUAL)on 03-14-2024 CT [...] Miguel An MD 03/14/[address] [facility] Complete Blood Count with Au to Diffon 03-06-2024 Basophils (Bld) [#/Vol] 0.1 10*3/uL Normal 0.0-0.1 [facility] Comment on above: Performed By: #### C BCAD #### [place] [address] Ph. [phone] Basophils/100 WBC (Bld) 1 % Normal 0-1 [facility] Comment on above: Performed By: #### C BCAD #### [place] [address] Ph. [phone] Eosinophils (Bld) [#/Vol] 0.3 10*3/uL Normal 0.0-0.5 [facility] Comment on above: Performed By: #### C BCAD #### [place] [address] Ph. [phone] Eosinophils/100 WBC (Bld) 4 % Normal 0-5 [facility] Comment on above: Performed By: #### C BCAD #### [place] [id number] Ph. [phone] Erythrocyte distribution width (RBC) [Ratio] 12 % Normal 11.5-14.5 [facility] Comment on above: Performed By: #### C BCAD #### [place] [address] Ph. [phone] Hematocrit (Bld) [Volume fraction] 40.2 % Low 42.0-52.0 [facility] Comment on above: Performed By: #### C BCAD #### [place] [address] Ph. [phone] Hemoglobin (Bld) [Mass/Vol] 13.8 g/dL Normal 13.5-17.5 [facility] Comment on above: Performed By: #### C BCAD #### [place] [address] Ph. [phone] Lymphocytes (Bld) [#/Vol] 2.5 10*3/uL Normal 1.0-4.0 [facility] Comment on above: Performed By: #### C BCAD #### [place] [address] Ph. [phone] Lymphocytes/100 WBC (Bld) 38 % Normal 20-40 [facility] Comment on above: Performed By: #### C BCAD #### [place] [address] Ph. [phone] MCH (RBC) [Entitic mass] 32.2 pg Normal 27.0-35.0 [facility] Comment on above: Performed By: #### C BCAD #### [place] [address] Ph. [phone] MCHC (RBC) [Mass/Vol] 34.3 g/dL Normal 32.0-36.0 [facility] Comment on above: Performed By: #### C BCAD #### [address] [address] Ph. [phone] MCV (RBC) [Entitic vol] 93.7 fL Normal 80.0-100.0 [facility] Comment on above: Performed By: #### C BCAD #### [place] [id number] Ph. [phone] Monocytes (Bld) [#/Vol] 0.5 10*3/uL Normal 0.3-1.0 [facility] Comment on above: Performed By: #### C BCAD #### [place] [address] Ph. [phone] Monocytes/100 WBC (Bld) 8 % Normal 1-15 [facility] Comment on above: Performed By: #### C BCAD #### [address] [address] Ph. [phone] Neutrophils (Bld) [#/Vol] 3.1 10*3/uL Normal 1.8-7.7 [facility] Comment on above: Performed By: #### C BCAD #### [place] [id number] Ph. [phone] Neutrophils/100 WBC (Bld) 48 % Low 50-70 [facility] Comment on above: Performed By: #### C BCAD #### [address] [address] Ph. [phone] Platelet mean volume (Bld) [Entitic vol] 10.1 fL Normal 9.4-12.3 [facility] Comment on above: Performed By: #### C BCAD #### [place] [id number] Ph. [phone] Platelets (Bld) [#/Vol] 249 10*3/uL Normal 150-450 [facility] Comment on above: Performed By: #### C BCAD #### [address] [address] Ph. [phone] RBC (Bld) [#/Vol] 4.29 10*6/uL Low 4.70-6.10 [facility] Comment on above: Performed By: #### C BCAD #### [address] [address] Ph. [phone] WBC (Bld) [#/Vol] 6.4 10*3/uL Normal 3.7-11.0 [facility] Comment on above: Performed By: #### C BCAD #### [address] [address] Ph. [phone] Comprehensive Metabolic Pane nain 03-06-2024 Albumin [Mass/Vol] 5.2 g/dL High 3.5-5.0 [facility] Comment on above: Performed By: #### F T4, CMP, [id number], LIPD, PSA #### [address] [address] Ph. [phone] ALP [Catalytic activity/Vol] 58 U/L Normal 38-126 [facility] Comment on above: Performed By: #### F T4, CMP, SUE240, LIPD, PSA #### [address] [address] Ph. [phone] ALT [Catalytic activity/Vol] 35 U/L Normal 0-50 [facility] Comment on above: Performed By: #### F T4, CMP, [id number], LIPD, PSA #### [address] [address] Ph. [phone] AST [Catalytic activity/Vol] 46 U/L Normal 17-59 [facility] Comment on above: Performed By: #### F T4, CMP, SLI270, LIPD, PSA #### [place] [address] Ph. [phone] Bilirubin [Mass/Vol] 0.5 mg/dL Normal 0.2-1.[address] [facility] Comment on above: Performed By: #### F T4, CMP, [id number], LIPD, PSA #### [place] [address] Ph. [phone] Calcium [Mass/Vol] 9.9 mg/dL Normal 8.4-10.2 [facility] Comment on above: Performed By: #### F T4, CMP, [id number], LIPD, PSA #### [place] [address] Ph. [phone] Chloride [Moles/Vol] 89 mmol/L Low 98-[address] [facility] Comment on above: Performed By: #### F T4, CMP, NUX104, LIPD, PSA #### [place] [address] Ph. [phone] CO2 [Moles/Vol] 34 mmol/L High 22-32 [facility] Comment on above: Performed By: #### F T4, CMP, [id number], LIPD, PSA #### [place] [address] Ph. [phone] Creatinine [Mass/Vol] 0.62 mg/dL Low 0.66-1.25 [facility] Comment on above: Performed By: #### F T4, CMP, DJR606, LIPD, PSA #### [place] [address] Ph. [phone] GFR/1.73 sq M.predicted among non-blacks MDRD (S/P/Bld) [Vol rate/Area] 106 mL/min/{1.73_m2} Normal >60 [facility] Comment on above: Result Comment: GFR calculated using CKD-EPI (2020) formula.\X0D0A\Stage 1 Kidney damage (e.g., protein in the urine) with normal GFR >=90\X0D0A\Stage 2 Kidney damage with mild decrease in GFR 60-89\X0D0A\Stage 3a Moderate decrease in GFR 45-59\X0D0A\Stage 3b Moderate decrease in GFR 30-44\X0D0A\Stage 4 Severe reduction in GFR 15-29\X0D0A\Stage 5 Kidney failure <15 Performed By: #### F T4, CMP, VPG213, LIPD, PSA #### [place] [address] Ph. [phone] Glucose [Mass/Vol] 81 mg/dL Normal 65-100 [facility] Comment on above: Performed By: #### F T4, CMP, VQE419, LIPD, PSA #### [place] [address] Ph. [phone] Potassium [Moles/Vol] 4.4 mmol/L Normal 3.6-5.0 [facility] Comment on above: Performed By: #### F T4, CMP, IPH267, LIPD, PSA #### [place] [address] Ph. [phone] Protein [Mass/Vol] 7.9 g/dL Normal 6.3-8.2 [facility] Comment on above: Performed By: #### F T4, CMP, CEI536, LIPD, PSA #### [place] [address] Ph. [phone] Sodium [Moles/Vol] 132 mmol/L Low 135-145 [facility] Comment on above: Performed By: #### F T4, CMP, WEO289, LIPD, PSA #### [place] [address] Ph. [phone] Urea nitrogen [Mass/Vol] 9 mg/dL Normal 9-20 [facility] Comment on above: Performed By: #### F T4, CMP, IZZ442, LIPD, PSA #### [place] [id number] Ph. [phone] Free T4on 03-06-2024 Free T4 [Mass/Vol] 1.33 ng/dL Normal 0.78-2.19 [facility] Comment on above: Performed By: #### F T4, CMP, WBT710, LIPD, PSA #### [place] [address] Ph. [phone] Lipid Panelon 03-06-2024 Cholesterol [Mass/Vol] 180 mg/dL Normal 100-200 [facility] Comment on above: Result Comment: <200 mg/dL is recommended cholesterol level. Performed By: #### F T4, CMP, SIA665, LIPD, PSA #### [place] [id number] Ph. [phone] Cholesterol in HDL [Mass/Vol] mg/dL Normal >40 [facility] Comment on above: Performed By: #### F T4, CMP, BUO543, LIPD, PSA #### [address] [address] Ph. [phone] Cholesterol in LDL [Mass/Vol] 51 mg/dL Normal 20-100 [facility] Comment on above: Performed By: #### F T4, CMP, TJY659, LIPD, PSA #### [address] [address] Ph. [phone] Cholesterol.total/Ch olesterol in HDL [Mass ratio] 2 {ratio} Normal 1-5 [facility] Comment on above: Performed By: #### F T4, CMP, ZBD063, LIPD, PSA #### [address] [address] Ph. [phone] Triglyceride [Mass/Vol] 97 mg/dL Normal 10-150 [facility] Comment on above: Performed By: #### F T4, CMP, EOP928, LIPD, PSA #### [place] [address] [place] [address] Ph. [phone] TSH Reflex FT4on 03-06-2024 TSH 5.090 mIU/mL High 0.470-4.680 [facility] Comment on above: Performed By: #### F T4, CMP, IRM071, LIPD, PSA #### [place] [address] [place] [address] Ph. [phone] Otolaryngology Office/Clinic Noteon 03-08-2023 Otolaryngology Office/Clinic Note [...] [place] [address]-05, 56768, and [address] to discuss with his insurance company to see what his tat-my-gpepze expense would be. We did discuss the [...] surgery without patient-specific risk Follow-up level 4 17696 added for otic microscopy use Physician Comments [...] Electronically s (more content not included)... [facility] Otolaryngology Office/Clinic Noteon 02-25-2023 Otolaryngology Office/Clinic Note Chief Complaint surgical consult History of Present Illness Patient presents to me today upon referral from [facility] for evaluation of bilateral chronic otitis media [...] today, i (more content not included)... [facility] Otolaryngology Office/Clinic Noteon 01-05-2023 Otolaryngology Office/Clinic [...] Carolyn Wells PA-C 01/10/23 23:30 EDT [facility] Otolaryngology Office/Clinic Noteon 12-15-2022 Otolaryngology Office/Clinic [...] mL, 0 Refill(s), 12/25/22 8:54:00 EDT, Pharmacy: [id number] 2. Dysfunction of both eustachian tubes [...] Tobacco Former (more content not included)... [facility] Audiology Office/Clinic Note on 03-31-2022 Audiology Office/Clinic Note History Patient was seen today for a hearing test and aided testing. He was referred by his PCP - ELLE Walker for testing required for his [facility] certification. Patient is a hearing aid user. [...] by Heather Tariq 03/31/22 16:59 EST [facility] SURGICALon 02-04-2021 SURGICAL [place] [facility] SHASHI PEREZ [id number] Assoc. Page 1 of [address] [place] [address] PROC: 02/04/2021 [facility] RECV: 02/06/2021 [address] [facility] RPTD: 02/07/2021 [place] [address] LOC: [facility] ACCT: [id number] SEX: M : 1960 AGE: 60 Y [...] ns. MTK/[id number] Microscopic Examination: Microscopic examination performed. [id number] LATANYA STEPHENSON M.D., F.C.A.P [facility]/ [facility] Printed on: 02/07/[address] [place] [address] Original print date: 02/07/2021 Normal [facility] CT LUNG SCREENINGon 06-11-19 21 1. No acute cardiopulmonary process or convincing evidence of new pulmonary malignancy. 2. Sequela of old healed granulomatous disease again identified. L-RAD 1 No findings or minor findings; benign nodules. RECOMMENDATIONS: Annual LDCT screening for 2 years and suggest annual LDCT until patient no longer eligible for definitive treatment. [place], [place] EXAMINATION: CT LUNG SCREENING (INITIAL/ANNUAL) 06/11/2020 [...] Report electronically signed by: Dr. Zana Galarza [place], [place] Karen Goncalves Radiant Results From [facility] [...] patient no longer eligible for definitive treatment. [place], [place] ALT, [facility] 0 ALT [Catalytic activity/Vol] 51 U/L High 0 - 50 U/L [place] AST, [facility] 0 AST [Catalytic activity/Vol] 52 U/L 17 - 59 U/L [place] Basic Metabolic Panel, [facility] 03-21-2020 Calcium [Mass/Vol] 9.1 mg/dL 8.4 - 10. 2 mg/dL [place] Chloride [Moles/Vol] 99 mmol/L [place], [place] CO2 [Moles/Vol] 31 mmol/L [place], [place] Creatinine [Mass/Vol] 0.66 mg/dL 0.66 - 1.25 mg/dL [place] GFR/1.73 sq M predicted among non-blacks MDRD (S/P/Bld) [Vol rate/Area] 104 mL/min/{1.73_m2} >60 mL/min/1.73m2 [place] Comment on above: Stage 1 Kidney damage (e.g., protein in the urine) with normal GFR >=90 Stage 2 Kidney damage with mild decrease in GFR 60-89 Stage 3a Moderate decrease in GFR 45-59 Stage 3b Moderate decrease in GFR 30-44 Stage 4 Severe reduction in GFR 15-29 Stage 5 Kidney failure <15 Glucose [Mass/Vol] 90 mg/dL 65 - 100 mg/dL [place] Potassium [Moles/Vol] 4.3 mmol/L [place] Sodium [Moles/Vol] 141 mmol/L [place] Urea nitrogen [Mass/Vol] 13 mg/dL 9 - 20 mg/dL [place] CBC, [facility] 0 Erythrocyte distribution width (RBC) [Ratio] 11.9 % 11.5 - 14.5 % [place] Hematocrit (Bld) [Volume fraction] 40.4 % Low 42 - 52 % [place] Hemoglobin (Bld) [Mass/Vol] 13.6 g/dL 13.5 - 17.5 g/dL [place] Interpretation and review of laboratory results Abnormal [place] MCH (RBC) [Entitic mass] 32.1 pg 27 - 35 pg [place] MCHC (RBC) [Mass/Vol] 33.7 g/dL 32 - 36 g/dL [place] MCV (RBC) [Entitic vol] 95 fL 80 - 100 fL [place] Platelet mean volume (Bld) [Entitic vol] 9.8 fL 9.4 - 12.3 fL [place], [place] Platelets (Bld) [#/Vol] 169 10*3/uL [place] RBC (Bld) [#/Vol] 4.24 10*6/uL Low [place] WBC (Bld) [#/Vol] 4.3 10*3/uL [place] Ordered by [facility] UNSPECIFIED [place] Free T4, [facility] 03-21 Free T4 [Mass/Vol] 1.01 ng/dL 0.78 - 2. 19 ng/dL [place] Ordered [place] Hemoglobin A1c, [facility] 03-21-2020 Glucose [Mass/Vol] 76.5 mg/dL [place] Comment on above: Estimated Average Glucose is a caluculated value from Hemoglobin A1C and is commercial representative of the average blood glucose level in the last 2-3 month period. HbA1c (Bld) [Mass fraction] 4.9 % 4 - 6 % [place] Comment on above: [place] [employer] guidelines indicate that patients with HgbA1C in the range of 5.7-6.4% are at increased risk for development of diabetes, and intervention by lifestyle modification may be beneficial. HgbA1C greater than or equal to 6.5% is considered diagnostic of diabetes. Ordered by [place], [place] Lipid Panel, [facility] 1 05-21-2019 Cholesterol [Mass/Vol] 175 mg/dL 100 - 200 mg/dL [place] Comment on above: <200 mg/dL is recommended cholesterol level. Cholesterol in HDL [Mass/Vol] 83 mg/dL >40 [place] Cholesterol in LDL [Mass/Vol] 57 mg/dL 20 - 100 mg/dL [place] CHOLESTEROL/HDL RELATIVE RISK 2 [place] Triglyceride [Mass/Vol] 174 mg/dL High 10 - 150 mg/dL [place] Otheron 03-21-2020 Ordered [place] Interpretation and review of laboratory results Abnormal [place] Ordered [place] PSA Screen, [facility] PSA, TOTAL 0.96 ng/mL 0 - 4 ng/mL [place] Comment on above: [facility] UTILIZES Rapt PSA METHODOLOGY. DIFFERENT TEST METHODS CANNOT BE USED INTERCHANGEABLY. PSA RESULTS IN A GIVEN PATIENT SAMPLE DETERMINED WITH DIFFERENT TESTS AND FROM DIFFERENT MANUFACTURERS CAN VARY DUE TO DIFFERENCES IN TEST METHODS AND REAGENTS. TSH, [facility] 0 TSH Qn 4.420 m[IU]/L Cindi Alcantar h- [place], [place] Laboratory - Chemistry and C hemistry - challengeon 01-19-2013 25-hydroxyvitamin D3 [Mass/Vol] 30.7 ng/mL Invalid Interpretation Code 30.0-100.0 [place] CK [Catalytic activity/Vol] 271.0 U/L Invalid Interpretation Code 24-194 [employer] CRP [Mass/Vol] 4.9 mg/L Invalid Interpretation Code 0.0-4.9 [facility] [employer] TSH Qn 1.70 m[IU]/L Invalid Interpretation Code 0.50-4.00 [facility] Laboratory - Hematology and Cell countson 01-19-2013 ESR (Bld) [Velocity] 10 mm/h Invalid Interpretation Code 0-20 [facility] [employer] Vital Signs Date Time Vital Sign Value Performing Clinician Facility 03-28-2024 14:55-0500 SaO2% (BldA) [Mass fraction] 99 % [facility] 03-28-2024 14:11-0500 Body height 177.8 cm [facility] 03-28-2024 14:11-0500 Body mass index (BMI) [Ratio] 28.98 kg/m2 [facility] 03-28-2024 14:11-0500 Body surface area Derived from formula 2.13 m2 [facility] 03-28-2024 14:11-0500 Body temperature 98.2 [degF] [facility] [email or web address] 03-28-2024 14:11-0500 Body weight 91.63 kg [facility] 11-19-2024 14:11-0500 Diastolic blood pressure 70 mm[Hg] Mino Pickens [employer] 03-28-2024 14:11-0500 Heart rate 64 /min Mino Pickens [employer] 03-28-2024 14:11-0500 Respiratory rate 16 /min Mino Pickens D[facility] [email or web address] 03-28-2024 14:11-0500 Systolic blood pressure 134 mm[Hg] Mino [facility] 03-13-2024 08:14-0500 SaO2% (BldA) [Mass fraction] 99 % Sarah Navarro MD Work Phone: [facility] 03-13-2024 08:05-0500 Body height 175.3 cm Sarah Navarro MD Work Phone: [facility] 03-13-2024 08:05-0500 Body mass index (BMI) [Ratio] 28.35 kg/m2 Sarah Navarro MD Work Phone: [facility] 03-13-2024 08:05-0500 Body temperature 98.71 [degF] Sarah Navarro MD Work Phone: [facility] 03-13-2024 08:05-0500 Body weight 87.09 kg Sarah Navarro MD Work Phone: [facility] 03-13-2024 08:05-0500 Diastolic blood pressure 72 mm[Hg] Sarah Navarro MD Work Phone: [facility] 03-13-2024 08:05-0500 Heart rate 69 /min Sarah Navarro MD Work Phone: [facility] 03-13-2024 08:05-0500 Respiratory rate 16 /min Sarah Navarro MD Work Phone: [facility] 03-13-2024 08:05-0500 Systolic blood pressure 167 mm[Hg] Sarah Navarro MD Work Phone: [facility] 10-09-2021 09:10-0400 Body weight 83.69 kg Jesu eBthea II, MD Work Phone: [facility] 03-26-2021 10:39-0500 Body weight 88.56 kg Aida Conigy PA-C Work Phone: [facility] 03-26-2021 10:39-0500 Diastolic blood pressure 79 mm[Hg] Aida Conigy PA-C Work Phone: [facility] 03-26-2021 10:39-0500 Heart rate 68 /min Aida Conigy PA-C Work Phone: [facility] 03-26-2021 10:39-0500 SaO2% (BldA) [Mass fraction] 98 % Aida Conigy PA-C Work Phone: [facility] 03-26-2021 10:39-0500 Systolic blood pressure 135 mm[Hg] Aida Conigy PA-C Work Phone: [facility] 01-19-2013 13:09-0400 Body height 181.61 cm [facility] 01-19-2013 13:09-0400 Body mass index (BMI) [Ratio] 38.51 kg/m2 [facility] 01-19-2013 13:09-0400 Body surface area Derived from formula 2.53 m2 [facility] 01-19-2013 13:09-0400 Body weight 127.01 kg [facility] 01-19-2013 13:09-0400 Diastolic blood pressure 86 mm[Hg] [facility] 01-19-2013 13:09-0400 Heart rate 84 /min [facility] 01-19-2013 13:09-0400 Systolic blood pressure 134 mm[Hg] Mino Pickens [facility] Encounters Encounter Date Encounter Type Care Provider Facility Start: 04-28-2024 [facility] Start: 04-28-2024 End: 04-28-2024 Subsequent hospital visit by physician Ciara Walker PA-C Work Phone: [facility] Laboratory Comment on above: Abnormal thyroid fun ction test Start: 03-28-2024 Office outpatient ne w 60 minutes Mino Pickens Other [facility] Start: 03-14-2024 End: 03-16-2024 Subsequent hospital visit by physician Ciara Walker PA-C Work Phone: [facility] CT Scan Comment on above: Screening for lung c ancer; History of tobacco use Start: 03-14-2024 [facility] Start: 03-13-2024 End: 03-13-2024 Emergency department patient visit Sarah Navarro MD Work Phone: [facility] Emergency Department Comment on above: 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) Start: 03-06-2024 [facility] Start: 03-17-2023 ambulatory Ciara Theodor e Beitler III PA-C Facility:[facility] Start: 03-08-2023 End: 03-09-2023 ambulatory Ciara Mich Beitler III PA-C Facility[facility] Start: 03-02-2023 ambulatory Ciara Theodor e Beitler III PA-C Facility:[facility] Start: 02-25-2023 ambulatory Spencer Sorensen caro PA-C Facility:[facility] Start: 02-25-2023 End: 02-26-2023 ambulatory Ciara Mich Beitler III PA-C Facility[facility] Start: 01-05-2023 End: 01-06-2023 ambulatory Ciara Mich Beitler III PA-C Facility:[facility] Start: 12-15-2022 End: 12-16-2022 ambulatory Ciara Mich Beitler III PA-C Facility:[facility] Start: 03-31-2022 End: 04-01-2022 ambulatory Ciara Walker III PA-C Facility[facility] Start: 10-09-2021 End: 10-09-2021 Orders Only [facility] Comment on above: Rectus diastasis of lower abdomen (Primary Dx) Start: 10-09-2021 End: 10-09-2021 Office outpatient visit 15 minutes Jesu Bethea MD Work Phone: [facility] Comment on above: Redundant skin of ab domen (Primary Dx); Recent weight loss; Intertrigo; Nicotine vapor product user Start: 04-24-2021 End: 12-14-[address] LYNNE CUETO Facility:[facility] Start: 03-26-2021 End: 03-26-2021 ambulatory AIDA BENÍTEZ [facility] Start: 03-26-2021 End: 03-26-2021 Office consultation new/estab patient 30 min Aida COVINGTONC Work Phone: [facility] Comment on above: Redundant skin of ab domen (Primary Dx); Recent weight loss Start: 07-11-2020 End: 07-11-2020 Orders Only Barby Castro Work Phone: [facility] Start: 06-11-2020 End: 06-13-2020 Subsequent hospital visit by physician [facility] Scan Comment on above: Ex-smoker Start: 05-28-2020 End: 05-28-2020 Subsequent hospital visit by physician Opal Don Work Phone: [facility] Audiology Start: 03-21-2020 End: 03-21-2020 Subsequent hospital visit by physician Ciara Walker [facility] Laboratory Start: 11-20-2014 End: 11-20-2014 Patient encounter procedure THAIS WRIGHT [facility] Start: 01-19-2013 Office Services Ilan rajan Other [facility] Office Start: 11-28-2012 End: 11-29-2012 Patient encounter procedure MIGUEL DIALLO [facility] Procedures Date Procedure Procedure Detail Performing Clinician [...] KIDD FELIZMAURY Comment on above: Result Comment: [facility] UTILIZ[employer] PSA METHODOLOGY. DIFFERENT TEST METHODS CANNOT BE USED INTERCHANGEABLY. PSA RESULTS IN A GIVEN PATIENT SAMPLE DETERMINED WITH DIFFERENT TESTS AND FROM DIFFERENT MANUFACTURERS CAN VARY DUE TO DIFFERENCES IN TEST METHODS AND REAGENTS. Performed By: #### F T4, CMP, [id number], LIPD, PSA #### [place] [address] Ph. [phone] Start: 02-04-2021 Colonoscopy Sarah willard MD Work [...] Screening for malign ant neoplasm of colon [facility] Start: 03-12-2025 End: 03-12-2025 Patient encounter procedure 03/12/2025 10:30 AM EST Office Visit [facility] at [address] [id number] Ciara Walker PA-C [address] [place] [address] [id number] annual [facility] at [facility] Comment on above: annual Start: 03-06-2025 Depression Screen Depression Screen [facility] Start: 03-06-2025 Lipid panel Lipids [facility] Start: 03-28-[address] chest [facility] Start: 03-14-2024 End: 03-14-2024 Patient encounter procedure 03/14/2024 8:00 AM EST Appointment [facility] Scan [address] [place] [address] Ciara Walker PA-C [address] [place] [id number] [facility] [address] Scan Comment on above: Routine Start: 01-09-2024 COVID-19 Vaccine ( season) COVID-19 Vaccine ( season) [facility] Start: 08-17-2023 Abdominal aortic ane urysm screening AAA screen [facility] Start: 08-17-2023 Pneumococcal 65+ yea rs Vaccine (1 of 1 - PCV) Pneumococcal 65+ years Vaccine (1 of 1 - PCV) [facility] Start: 08-12-2023 Annual Wellness Visi t (Medicare) Annual Wellness Visit (Medicare) [facility] Start: 09-01-2021 End: 09-01-2021 Patient encounter procedure 09/01/2021 Office Visit Plastic Surgery [facility], Jesu Salazar II, MD [address] [place] [address] [facility] Start: 06-21-2021 COVID-19 Vaccine (4 - Booster for Pfizer series) COVID-19 Vaccine (4 - Booster for Pfizer series) [facility] Start: 02-25-2021 End: 02-25-2021 Office Visit 02/25/2021 Office Visit Primary Care Ciara Walker PA-C [address] [place] [address] [place] [address] [phone] [facility] Start: 01-08-2021 Influenza vaccination Sequenti al Influenza Vaccine (#1) [facility] Start: 01-01-2021 End: 01-01-2021 Appointment 01/01/2021 Appointment Audiology Opal Don, AuD [address] [place], [place] [id number] [facility] Audiology Start: 05-28-2020 End: 05-28-2020 Appointment 05/28/2020 Appointment Audiology Opal Don, AuD [address] [place], [place] [id number] [facility] Audiology Start: 01-09-2020 Influenza vaccination Flu vaccine (# 1) [facility] [place] Start: 01-09-2020 Influenza vaccinatio n given Sequential Influenza Vaccine (#1) [facility] Start: 2018 Respiratory Syncytia l Virus (RSV) or age 60 yrs+ (1 - 1-dose 60+ series) Respiratory Syncytial Virus (RSV) or age 60 yrs+ (1 - 1-dose 60+ series) [facility] Start: 2018 Respiratory Syncytia l Virus (RSV) or age 60 yrs+ (1 - Risk 60-74 years 1-dose series) Respiratory Syncytial Virus (RSV) or age 60 yrs+ (1 - Risk 60-74 years 1-dose series) [facility] Start: 2008 Administration of he rpes zoster vaccine Zoster Vaccines (1 of 2) [facility] Start: 2008 Screening for malign ant neoplasm of colon [facility] Start: 2008 Shingles Vaccine (1 of 2) Milner gles Vaccine (1 of 2) [place], [place] Start: 08-17-2003 Screening for malign ant neoplasm of colon [facility] Start: 1977 DTaP/Tdap/Td vaccine (1 - Tdap) DTaP/Tdap/Td vaccine (1 - Tdap) [facility] Start: 1976 Hepatitis C antibody , confirmatory test Hepatitis C Screening [facility] Start: 1976 Hepatitis C screening [facility] Start: 1974 COVID-19 Vaccine (1 of 2) COVI D-19 Vaccine (1 of 2) [facility] Start: 1973 HIV screening [facility] Start: 1970 Adolescent depressio n screening assessment Depression Screening (PHQ9) [facility] Start: 1970 Depression screening using PHQ-9 (Patient Health Questionnaire 9) score Depression Screening (PHQ-2/9) [facility] Start: 1968 Lipid panel Lipid screen [place], [place] Start: 1961 History and physical examination, annual for health maintenance Wellness Visit [facility] Start: 1958 Creatinine measurement Creatinine mo nitoring [place], [place] Start: 1958 Hepatitis C screening Hepatitis C sc reen [place], [place] Start: 1958 Potassium monitoring Potassium monit oring [place], [place] Start: 1958 Prostate specific an tigen measurement PSA Level [facility] Start: 1958 Screening for malign ant neoplasm of lung Low-dose CT Lung Cancer Screen [facility] Start: 1958 Tetanus vaccination Tetanus: Every 1 0yrs [facility] Start: 1958 TSH Qn TSH testing [place], [place] End: 10-09-[address] CT Abdomen Without Contrast Imaging Routine Rectus diastasis of lower abdomen 1 Occurrences starting 10/09/2021 until 10/09/2022 [facility] Work Phone: Comment on above: 1 Occurrences starti ng 10/09/2021 until 10/09/2022 Immunizations Immunization Date Immunization Notes Care Provider Kenji decker 03-06-2024 influenza, high dose seasonal, preservative-free Sarah Navarro MD Work Phone: [facility] Work Phone: 04-27-2022 zoster vaccine recombinant Sarah Navarro MD Work Phone: [facility] 04-21-2022 influenza, injectabl e, quadrivalent, preservative free Sarah Navarro MD Work Phone: [facility] Work Phone: 02-23-2022 zoster vaccine recombinant Sarah Navarro MD Work Phone: [facility] 04-22-2021 Influenza, injectabl e, Madin [place] Canine Kidney, preservative free, quadrivalent Sraah Navarro MD Work Phone: [facility] 03-21-2020 influenza, injectabl e, quadrivalent, preservative free Sarah Navarro MD Work Phone: [facility] Payers Date Payer Category Payer Medicare [id number] 2023 Unknown [id number] 2017 Unknown MMO MED [employer] S UPERMED PPO [id number] 2017-Present [id number] 2016 Unknown [id number] 2016 Unknown [id number] [id number] [id number] 2014 Unknown [id number] 1959 Self-pay 1958 Unknown [id number] [id number] 1958 Unknown [id number] 2.16.840.1.030366.3.579.2.900 1958 Unknown [id number] 2.16.840.1.603028.3.579.2.903 1958 Unknown [id number] 2.16.840.1.770553.3.579.2.903 1958 Unknown [id number] 2.16.840.1.672133.3.579.2.593 1958 Unknown [id number] 2.16.840.1.248024.3.579.2.196 1958 Unknown [id number] 2.16.840.1.414102.3.579.2.196 1958 Unknown [id number] 2.16.840.1.861272.3.579.2.196 1958 Unknown [id number] 2.16.840.1.354648.3.579.2.196 1958 Unknown [id number] 2.16.840.1.168785.3.579.2.196 1958 Unknown [id number] 2.16.840.1.191095.3.579.2.196 1958 Unknown [id number] 2.16.840.1.863325.3.579.2.196 1958 Unknown [id number] 2.16.840.1.983803.3.579.2.196 1958 Unknown [id number] 2.16.840.1.894712.3.579.2.754 1958 Unknown [id number] 2.16.840.1.948155.3.579.2.754 1958 Unknown [id number] 2.16.840.1.117657.3.579.2.754 1958 Unknown [id number] [id number] Social History Date Type Detail Facility Start: 02-20-2020 End: 02-23-2022 Tobacco smoking status NHIS Former smoker [place] End: 03-10-2011 History of tobacco use Cigarette Smoker [place] History of tobacco use Cigar Smoker [place] Start: 02-20-2020 End: 02-23-2022 Tobacco use and exposure Never used [place], [place] Start: 02-20-2020 End: 03-13-2024 Alcohol intake Current drinker of alcohol (finding) [place] Start: 02-20-2020 History SDOH Alcohol Frequency 5 [place] Start: 02-20-2020 History SDOH Alcohol Std Drinks 1 [place] Start: 1960 Sex Assigned At Not on file [place], [place] Start: 1960 Sex Assigned At Male [place] End: 03-10-2011 History of tobacco use Current smoker [facility] Start: 03-15-2018 End: 03-13-2024 Cigarettes smoked current (pack per day) - Reported 3 [facility] Start: 09-29-2021 End: 10-09-2021 Exposure to SARS-CoV-2 (event) Not sure [facility] Start: 02-20-2020 End: 03-13-2024 Alcohol Use Disorder Identification Test - Consumption [AUDIT-C] [facility] How often to you hav e a drink containing alcohol? 4 or more times a week [facility] How many standard dr inks containing alcohol do you have on a typical day? [address] [facility] Work Phone: Frequency of Binge Drinking Not on file [facility] Work Phone: (I/We) worried mike er (my/our) food would run out before (I/we) got money to buy more. Never true [facility] Work Phone: At any time in the p ast 12 months, were you homeless or living in assisted [including now]? No [facility] Work Phone: Start: 03-13-2024 Alcohol Comment couple drinks/day [facility] Work Phone: Start: 06-10-2020 Gender identity Identifies as male gender (finding) [facility] Work Phone: Start: 06-10-2020 Sexual orientation Heterosexual (finding) [facility] Work Phone: Start: [place]: Denies substance abuse [place] Start: [place] Start: [place]affeine [place] [facility] [facility] Discharge instructions 03-13-2024 Discharge InstructionsAttachments Note Date & Type Note Facility 03-13-2024 Hospital Discharg e instructions Saarh Navarro MD - 03/13/2024 8:53 AM EST Continue to clean wound and bandage for the next 48 hours as discussed in the ER today The following attachments cannot be sent through Care Everywhere.Compression Stockings: General Info (Korean)documented in this encounter [facility] Work Phone: History of Present illness Narrative [...] Bethea II, MD documented in this encounter [facility] History of Present illness Narrative 03-26-2021 [...] Aida Benítez PA-C documented in this encounter [facility] Evaluation note Note Date & Type Note Facility Evaluation note Diagnosis Redundant skin of abdomen- Primary Recent weight loss documented in this encounter [facility] Evaluation note Note Date & Type Note Facility Evaluation note Diagnosis Rectus diastasis of lower abdomen- Primary documented in this encounter [facility] Evaluation note Note Date & Type Note Facility Evaluation note Diagnosis Redundant skin of abdomen- Primary Recent weight loss Intertrigo Other specified erythematous condition Nicotine vapor product user documented in this encounter [facility] Evaluation note Note Date & Type Note Facility Evaluation note Diagnosis Bleeding from varicose vein- Primary Varicose veins of lower extremities with other complications documented in this encounter [facility] Work Phone: Evaluation note Note Date & Type Note Facility Evaluation note Diagnosis Screening for lung cancer History of tobacco use Personal history of tobacco use, presenting hazards to health documented in this encounter [facility] Work Phone: Evaluation note Note Date & Type Note Facility Evaluation note Diagnosis Abnormal thyroid function test Nonspecific abnormal results of thyroid function study documented in this encounter 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 He reported the left hearing aid has been having some intermittent feedback. The patient noted he needs domes, wax guards, and a new cleaning brush. Audiology Appointment Note: Patient was fit with: Phonak Audeo M90-R Right SN: [id number] Left SN: [id number] Dome size: small vented for right and medium open for left Program Attendant length: 2M for the right and 2S for the left Phonak Warranty expires: 08/04/2021 Otoscopy revealed minimal cerumen accumulation bilaterally. Tympanic membranes were visualized and appropriate landmarks were present bilaterally. Cleaned and checked both hearing aids. Initial listening check revealed the right hearing aid was not amplifying due to broken guzzler builder. Replaced the patient's right guzzler builder (2M) under warranty. The left hearing aid [...] could not be reviewed. Reran feedback manager fiber for both hearing aids. Dispensed 4 sets [...] LUNG SCREENING Ciara Walker PA-C [address] [place] [address] Specialty Diagnoses / Procedures Referred By Brody padgett Referred To Contact Radiology Diagnoses Rectus diastasis of lower abdomen Procedures CT Abdomen Without Contrast Jesu Bethea II, MD [address] [place] [address] Referral ID Status Reason Start Date Expiration Date V isits Requested Visits Authorized [id number] New Request 10/09/2021 10/09/2022 1 1 Specialty Diagnoses / Procedures Referred By Brody padgett Referred To Contact Radiology Diagnoses Screening for lung cancer History of tobacco use Procedures CT LUNG SCREENING Ciara Walker PA-C [address] [place] [address] Referral ID Status Reason Start Date Expiration Date Visits Re quested Visits Authorized [id number] Closed 03/10/2024 03/10/2025 1 1 Assessments Diagnosis Ex-smoker Personal history of tobacco use, presenting hazards to health Additional Source Comments (unrecognized sect ion and content) No Status Records FoundNo Status Records FoundNo Status Records FoundNo Status Records FoundNo Status Records FoundNo Status Records FoundNo Status Records Found INFORMATION SOURCE (unrecogn ized section and content) DATE CREATED AUTHOR 04/17/2018 [facility] DATE CREATED AUTHOR AUTHOR'S ORGANIZ ATION 04/17/2018 [facility] DATE CREATED AUTHOR AUTHOR'S ORGANIZ ATION 02/08/2021 [facility] DATE CREATED AUTHOR AUTHOR'S ORGANIZ ATION 10/09/2021 [facility] DATE CREATED AUTHOR AUTHOR'S ORGANIZ ATION 12/14/2021 [facility] DATE CREATED AUTHOR AUTHOR'S ORGANIZ ATION 03/15/2023 [facility] DATE CREATED AUTHOR AUTHOR'S ORGANIZ ATION 05/01/2024 [facility] Reason for Visit (unrecogniz ed section and content) Status Reason Specialty Diagnoses / Procedures Referre d By Contact Referred To Contact Closed Radiology Diagnoses Ex-smoker Procedures CT LUNG SCREENING Ciara Walker PA-C [address] [place] [address] Reason Comments Advice Only Skin removal Specialty Diagnoses / Procedures Referred By Contjose t Referred To Contact Radiology Diagnoses Screening for lung cancer History of tobacco use Procedures CT LUNG SCREENING Ciara Walker PA-C [address] [place] [address] Referral ID Status Reason Start Date Expiration Date Visits Re quested Visits Authorized [id number] Closed 03/10/2024 03/10/2025 1 1 Care Teams (unrecognized sec tion and content) Morning Show Producer Relationship Specialty Start Date End Date Ciara Walker III, PA-C [address] [place] [address] PCP - General Physician Vp Customer Service 03/21/21 Morning Show Producer Relationship Specialty Start Date End Date Ciara Walker III, PA-C [address] [place], [place] [phone] PCP - General Physician Vp Customer Service 03/21/21 Morning Show Producer Relationship Specialty Start Date End Date Ciara Walker III, PA-C [address] [place], [place] [id number] PCP - General Physician Vp Customer Service 03/21/21 Morning Show Producer Relationship Specialty Start Date End Date Ciara Walker PA-C PCP - General Family Medicine 02/01/20 Morning Show Producer Relationship Specialty Start Date End Date Ciara Walker PA-C PCP - General Family Medicine 02/01/20 Morning Show Producer Relationship Specialty Start Date End Date Ciara [...] BE BASED ON THE PRIMARY CLINICAL RECORDS. [facility] [employer] [facility]. provides no warranty or guarantee of the accuracy or completeness of information in this document.
== END 2024-06-08 11:17 | disposition home or self-care (01) ==
LOC: VC 10:55
PROVIDERS: PCP Radiology Diagnostic Radiology; Visit Provider Radiology Diagnostic Radiology
DX: I80.01 Phlebitis and thrombophlebitis of superficial vessels of right lower extremity (principal)
CPT/HCPCS: 93971; G0463